=== PATIENT | male | born 1970 | race Caucasian/White ===

== ENCOUNTER → 2016-12-18 | Outpatient (CLI) | payer OTHER ==
--- NOTE | 2016-12-18 10:56 | MR ---
EXAMINATION TYPE: MR knee LT wo con DATE OF EXAM: 12/18/2016 9:16 AM COMPARISON: None HISTORY: Lt Knee pain TECHNIQUE: Multiplanar, multisequence imaging of the left knee is performed without IV contrast. FINDINGS: MEDIAL MENISCUS: Anterior and posterior horns are intact without tear. LATERAL MENISCUS: Anterior and posterior horns are intact without tear. CRUCIATE LIGAMENTS: The anterior cruciate ligament shows fluid signal along its course, some fibers a re thought to be intact. Posterior cruciate ligament is intact. COLLATERAL LIGAMENTS: The medial collateral ligament and lateral collateral ligament complex are inta ct and unremarkable. EXTENSOR MECHANISM: Visualized quadriceps and patellar tendons are intact. EFFUSION: There is a small effusion in the suprapatellar location. POPLITEAL CYST: No sizable popliteal cyst TRICOMPARTMENT SPACES: Joint spaces are maintained CARTILAGE: Appears intact. BONE MARROW SIGNAL: There is increased signal on T2-weighted sequences involving the posterior aspect of the lateral femoral condyle compatible with bone contusion. OTHER: No additional significant abnormality is appreciated. IMPRESSION: Bone contusion, findings felt likely to represent strain, possible partial tear of the anterior cruci ate ligament
== END | disposition home or self-care (01) ==
LOC: RADMRIMAIN 08:22
PROVIDERS: ATTEND Nurse Practitioner Family
DX: S80.02XA Contusion of left knee, initial encounter (principal)

== ENCOUNTER 2016-12-28 13:05 | Emergency (ER) | payer OTHER ==
[2016-12-28] MEDS ORDERED: SODIUM CHLORIDE 0.9% 1,000 ML IV STA (13:23)
[2016-12-28] MEDS ORDERED: ONDANSETRON 4 MG/2 ML VIAL IVP STA ×2 (13:23→15:28)
[2016-12-28 13:45] LABS: Basophils % (A) 0 %; CH 33.1; CHCM 34.1; Eosinophils % (A) 0 %; HCT 46.8 % (39.0-53.0); HDW 2.11; HGB 15.5 gm/dL (13.0-17.5); Luc # (Auto) 0.04; Luc % (Auto) 0; Lymphocytes # (A) 0.7 k/uL (1.0-4.8); Lymphocytes % (A) 6 %; MCH 32.3 pg (25.0-35.0); MCHC 33.2 g/dL (31.0-37.0); MCV 97.5 fL (80.0-100.0); Mean Platelet Volume 8.6; Monocytes # (A) 0.3 k/uL (0-1.0); Monocytes % (A) 3 %; Neutrophils # (A) 9.5 k/uL (1.3-7.7); Neutrophils % (A) 90 %; RDW 13.2 % (11.5-15.5); WBC 10.5 k/uL (3.8-10.6)
--- NOTE | 2016-12-28 13:45 | ED ---
Nausea/Vomiting/Diarrhea HPI - General Chief complaint: Nausea/Vomiting/Diarrhea Stated complaint: NVD Time Seen by Provider: 12/28/16 13:21 Source: patient, RN notes reviewed Mode of arrival: wheelchair Limitations: no limitations - History of Present Illness Initial comments: 46-year-old male presents emergency Department chief complaint nausea, vomiting and diarrhea. Patient states that he's been having nausea vomiting diarrhea since yesterday. Patient states his abdominal cramping but no severe localized abdominal pain. Denies fever, chills. Denies any dysuria or hematuria. Patient denies any chest pain, shortness breath, headache, dizziness, flank pain. - Related Data Home Medications Medication Instructions Recorded Confirmed Naproxen [Naprosyn] 500 mg PO BID PRN 12/28/16 12/28/16 Previous Rx's Medication Instructions Recorded Ondansetron Odt [Zofran Odt] 4 mg PO Q8HR PRN #10 tab 12/28/16 Allergies Allergy/AdvReac Type Severity Reaction Status Date / Time cyclobenzaprine Allergy AGITATION Verified 12/28/16 14:07 [From Flexeril] Review of Systems ROS Statement: Those systems with pertinent positive or pertinent negative responses have been documented in the HPI. ROS Other: All systems not noted in ROS Statement are negative. Past Medical History Past Medical History: No Reported History Additional Past Medical History / Comment(s): hernia, alcoholism History of Any Multi-Drug Resistant Organisms: None Reported Past Surgical History: Hernia Repair Past Anesthesia/Blood Transfusion Reactions: No Reported Reaction Past Psychological History: No Psychological Hx Reported Smoking Status: Former smoker Past Alcohol Use History: Daily, Heavy Past Drug Use History: None Reported General Exam Limitations: no limitations General appearance: alert, in no apparent distress Head exam: Present: atraumatic, normocephalic, normal inspection Neck exam: Present: normal inspection, full ROM. Absent: tenderness, meningismus, lymphadenopathy Respiratory exam: Present: normal lung sounds bilaterally. Absent: respiratory distress, wheezes, rales, rhonchi, stridor Cardiovascular Exam: Present: regular rate, normal rhythm, normal heart sounds. Absent: systolic murmur, diastolic murmur, rubs, gallop, clicks GI/Abdominal exam: Present: soft, tenderness (Mild diffuse), normal bowel sounds. Absent: distended, guarding, rebound, rigid Back exam: Absent: CVA tenderness (R), CVA tenderness (L) Neurological exam: Present: alert, oriented X3, CN II-XII intact Course Vital Signs 12/28/16 13:07 Temperature 97.8 F Pulse Rate 108 H Respiratory 20 Rate Blood Pressure 128/74 O2 Sat by Pulse 99 Oximetry - Reevaluation(s) Reevaluation #1: 12/28/16 15:28 Patient was reevaluated his time states that he does feel much improved at this time. Patient will be discharged. Medical Decision Making - Medical Decision Making 46-year-old male present emergency department for nausea vomiting diarrhea. Patient states symptoms started last night. Patient states she does feel improved at this time. Patient was discharged with Zofran. Patient's lab work within normal limits. - Lab Data Result diagrams: 12/28/16 13:28 12/28/16 13:28 Lab Results 12/28/16 12/28/16 12/28/16 Range/Units 13:28 13:28 14:34 WBC 10.5 (3.8-10.6) k/uL RBC 4.80 (4.30-5.90) m/uL Hgb 15.5 (13.0-17.5) gm/dL Hct 46.8 (39.0-53.0) % MCV 97.5 (80.0-100.0) fL MCH 32.3 (25.0-35.0) pg MCHC 33.2 (31.0-37.0) g/dL RDW 13.2 (11.5-15.5) % Plt Count 202 (150-450) k/uL Neutrophils % 90 % Lymphocytes % 6 % Monocytes % 3 % Eosinophils % 0 % Basophils % 0 % Neutrophils # 9.5 H (1.3-7.7) k/uL Lymphocytes # 0.7 L (1.0-4.8) k/uL Monocytes # 0.3 (0-1.0) k/uL Eosinophils # 0.0 (0-0.7) k/uL Basophils # 0.0 (0-0.2) k/uL Sodium 143 (137-145) mmol/L Potassium 4.3 (3.5-5.1) mmol/L Chloride 103 (98-107) mmol/L Carbon Dioxide 23 (22-30) mmol/L Anion Gap 17 mmol/L BUN 14 (9-20) mg/dL Creatinine 1.12 (0.66-1.25) mg/dL Est GFR (MDRD) Af Amer >60 (>60 ml/min/1.73 sqM) Est GFR (MDRD) Non-Af >60 (>60 ml/min/1.73 sqM) Glucose 121 H (74-99) mg/dL Calcium 10.3 H (8.4-10.2) mg/dL Total Bilirubin 0.9 (0.2-1.3) mg/dL AST 27 (17-59) U/L ALT 29 (21-72) U/L Alkaline Phosphatase 69 (38-126) U/L Total Protein 8.4 H (6.3-8.2) g/dL Albumin 5.2 H (3.5-5.0) g/dL Amylase 66 (30-110) U/L Lipase 160 (23-300) U/L Urine Color Yellow Urine Appearance Clear (Clear) Urine pH 7.0 (5.0-8.0) Ur Specific [place] 1.024 (1.001-1.035) Urine Protein 1+ H (Negative) Urine Glucose (UA) Negative (Negative) Urine Ketones 3+ H (Negative) Urine Blood Negative (Negative) Urine Nitrite Negative (Negative) Urine Bilirubin Negative (Negative) Urine Urobilinogen <2.0 (<2.0) mg/dL Ur Leukocyte Esterase Negative (Negative) Urine RBC 4 (0-5) /hpf Urine WBC 2 (0-5) /hpf Urine Mucus Few H (None) /hpf Disposition Clinical Impression: Gastroenteritis Disposition: HOME SELF-CARE Condition: Stable Instructions: Gastroenteritis (ED) Additional Instructions: Please return to the Emergency Department if symptoms worsen or any other concerns. Prescriptions: Ondansetron Odt [Zofran Odt] 4 mg PO Q8HR PRN #10 tab PRN Reason: Nausea Time of Disposition: 15:30
[2016-12-28 14:02] LABS: ALT 29 U/L (21-72); AST 27 U/L (17-59); Alkaline Phosphatase 69 U/L (38-126); Amylase 66 U/L (30-110); Anion Gap 17 mmol/L; Blood Urea Nitrogen 14 mg/dL (9-20); Calcium 10.3 mg/dL (8.4-10.2); Carbon Dioxide 23 mmol/L (22-30); Chloride 103 mmol/L (98-107); Glucose 121 mg/dL (74-99); Non-African American GFR(MDRD) >60 (>60 ml/min/1.73 sqM); Potassium 4.3 mmol/L (3.5-5.1); Sodium 143 mmol/L (137-145); Total Bilirubin 0.9 mg/dL (0.2-1.3); Total Protein 8.4 g/dL (6.3-8.2)
[2016-12-28 14:54] LABS: Appearance,Urine Clear (Clear); Bilirubin,Urine Negative (Negative); Glucose,Urine (UA) Negative (Negative); Ketones,Urine 3+ (Negative); Leukocyte Esterase,Urine Negative (Negative); Mucus,Urine Few /hpf; Nitrite,Urine Negative (Negative); Particle Count 3762; Protein,Urine 1+ (Negative); RBC,Urine 4 /hpf (0-5); Specific Gravity,Urine 1.024 (1.001-1.035); UA Billing (MACRO vs. MICRO) MICRO; Urobilinogen,Urine <2.0 mg/dL (<2.0); WBC,Urine 2 /hpf (0-5)
[2016-12-28] MEDS ORDERED: FAMOTIDINE 20 MG/2 ML VIAL IV STA (15:28)
[2016-12-28 15:49] VITALS: BP 140/99; PULSE 77; RESP 18; TEMP 99.1
== END 2016-12-28 16:00 | disposition home or self-care (01) ==
LOC: EC 13:05
DX: K52.9 Noninfective gastroenteritis and colitis, unspecified (principal); R11.2 Nausea with vomiting, unspecified; Z87.891 Personal history of nicotine dependence; Z88.8 Allergy status to other drugs, medicaments and biological substances; Z98.890 Other specified postprocedural states
CPT/HCPCS: 36415; 80053; 82150; 83690; 85025; 81001; 99284; 96374; 96375; 96376; 96361 ×2; J2405

== ENCOUNTER 2017-01-02 19:49 | Emergency (ER) | payer OTHER ==
[2017-01-02 20:11] VITALS: TEMP 99
[2017-01-02 20:27] LABS: Basophils % (A) 1 %; CH 33.7; Eosinophils # (A) 0.1 k/uL (0-0.7); Eosinophils % (A) 1 %; HCT 44.4 % (39.0-53.0); HDW 2.26; HGB 15.4 gm/dL (13.0-17.5); Luc # (Auto) 0.18; Luc % (Auto) 2; Lymphocytes # (A) 1.8 k/uL (1.0-4.8); Lymphocytes % (A) 24 %; MCH 32.8 pg (25.0-35.0); MCHC 34.8 g/dL (31.0-37.0); MCV 94.2 fL (80.0-100.0); Mean Platelet Volume 9.3; Monocytes # (A) 0.6 k/uL (0-1.0); Monocytes % (A) 8 %; Neutrophils # (A) 4.8 k/uL (1.3-7.7); Neutrophils % (A) 64 %; RBC 4.71 m/uL (4.30-5.90); RDW 12.9 % (11.5-15.5); WBC 7.5 k/uL (3.8-10.6); WBC (Perox) 7.55
[2017-01-02 20:33] LABS: Appearance,Urine Cloudy (Clear); Bacteria,Urine Rare /hpf; Bilirubin,Urine Negative (Negative); Glucose,Urine (UA) Negative (Negative); Ketones,Urine 1+ (Negative); Leukocyte Esterase,Urine Negative (Negative); Mucus,Urine Rare /hpf; Nitrite,Urine Negative (Negative); PH, Urine 6.5 (5.0-8.0); Particle Count 8948; Protein,Urine Trace (Negative); RBC,Urine 2 /hpf (0-5); UA Billing (MACRO vs. MICRO) MICRO; WBC,Urine 3 /hpf (0-5)
[2017-01-02 20:37] LABS: INR 1.3 (<1.1); Partial Thromboplastin Time 23.6 sec (22.0-30.0); Prothrombin Time 13.1 sec (9.0-12.0)
[2017-01-02 20:39] LABS: ALT 71 U/L (21-72); AST 40 U/L (17-59); Alkaline Phosphatase 48 U/L (38-126); Anion Gap 12 mmol/L; Blood Urea Nitrogen 18 mg/dL (9-20); Calcium 9.3 mg/dL (8.4-10.2); Carbon Dioxide 23 mmol/L (22-30); Chloride 102 mmol/L (98-107); Glucose 81 mg/dL (74-99); Non-African American GFR(MDRD) >60 (>60 ml/min/1.73 sqM); Potassium 3.6 mmol/L (3.5-5.1); Sodium 137 mmol/L (137-145); Total Bilirubin 1.5 mg/dL (0.2-1.3); Total Protein 7.1 g/dL (6.3-8.2)
--- NOTE | 2017-01-02 20:54 | CT ---
EXAMINATION TYPE: CT abdomen pelvis w con DATE OF EXAM: 01/02/2017 8:39 PM COMPARISON: 12/29/2016 HISTORY: ABD PAIN. HX OF APPENDECTOMY ON 12-30-16. CT DLP: 325.6 mGycm Automated exposure control for dose reduction was used. TECHNIQUE: Helical acquisition of images was performed from the lung bases through the pelvis. CONTRAST: Performed without Oral Contrast and with IV Contrast, patient injected with 100 mL of Omnipaque 300. FINDINGS: Lung bases are clear. There is no pleural effusion. Liver spleen pancreas gallbladder appear normal. Bile ducts are not dilated. There is no adrenal mass. Kidneys show satisfactory contrast opacificatio n. There is no hydronephrosis. There are skin adi over the right lower quadrant. I see no intesti nal wall thickening. There are no dilated loops. Bladder distends smoothly. There is no free fluid. T here is no sign of a pelvic mass. I see no bony destructive process. IMPRESSION: RECENT SURGERY. THERE HAS BEEN APPENDECTOMY SINCE THE LAST EXAM. I SEE NO COMPLICATING PROCESS. NO AB SCESS.
--- NOTE | 2017-01-02 21:24 | ED ---
Abdominal Pain HPI - General Chief Complaint: Abdominal Pain Stated Complaint: ABD PAIN Time Seen by Provider: 01/02/17 20:12 Source: patient, EMS Mode of arrival: EMS Limitations: no limitations - History of Present Illness Initial Comments: Patient complains of nausea and vomiting. He had a recent appendectomy. He doesn't have any belly pain. He has no back pain. He has no chest pain. He has no lightheadedness or dizziness. He is unable to tolerate oral intake. He has no blood in the stool. He has no black or tarry stool. He has taken no medication for his symptoms. He denies any injuries. - Related Data Home Medications Medication Instructions Recorded Confirmed Naproxen [Naprosyn] 500 mg PO BID PRN 12/28/16 01/02/17 HYDROcodone/APAP 5-325MG [[place] 5] 2 tab PO Q4H PRN 01/02/17 01/02/17 Previous Rx's Medication Instructions Recorded Ondansetron Odt [Zofran Odt] 4 mg PO Q8HR PRN #10 tab 12/28/16 Allergies Allergy/AdvReac Type Severity Reaction Status Date / Time cyclobenzaprine Allergy AGITATION Verified 01/02/17 20:43 [From Flexeril] Review of Systems ROS Statement: Those systems with pertinent positive or pertinent negative responses have been documented in the HPI. ROS Other: All systems not noted in ROS Statement are negative. Past Medical History Past Medical History: No Reported History Additional Past Medical History / Comment(s): hernia, alcoholism History of Any Multi-Drug Resistant Organisms: None Reported Past Surgical History: Appendectomy, Hernia Repair Past Anesthesia/Blood Transfusion Reactions: No Reported Reaction Past Psychological History: No Psychological Hx Reported Smoking Status: Former smoker Past Alcohol Use History: Daily, Heavy Past Drug Use History: None Reported General Exam Limitations: no limitations General appearance: alert, in no apparent distress Head exam: Present: atraumatic, normocephalic, normal inspection Eye exam: Present: normal appearance, PERRL, EOMI. Absent: scleral icterus, conjunctival injection, periorbital swelling ENT exam: Present: normal exam, mucous membranes moist Neck exam: Present: normal inspection. Absent: tenderness, meningismus, lymphadenopathy Respiratory exam: Present: normal lung sounds bilaterally. Absent: respiratory distress, wheezes, rales, rhonchi, stridor Cardiovascular Exam: Present: regular rate, normal rhythm, normal heart sounds. Absent: systolic murmur, diastolic murmur, rubs, gallop, clicks GI/Abdominal exam: Present: soft, normal bowel sounds. Absent: distended, tenderness, guarding, rebound, rigid Extremities exam: Present: normal inspection, full ROM, normal capillary refill. Absent: tenderness, pedal edema, joint swelling, calf tenderness Back exam: Present: normal inspection Neurological exam: Present: alert, oriented X3, CN II-XII intact Psychiatric exam: Present: normal affect, normal mood Skin exam: Present: warm, dry, intact, normal color. Absent: rash Course Vital Signs 01/02/17 20:08 Temperature 99.0 F Pulse Rate 77 Respiratory 18 Rate Blood Pressure 110/71 O2 Sat by Pulse 100 Oximetry Medical Decision Making - Medical Decision Making Patient complains of nausea and vomiting after an appendectomy recently. His examination is benign. He is not actively vomiting. His belly is soft. The incision is clean, dry, intact. I obtained a CAT scan as I'm concern for a bowel obstruction or ileus or abscess. This was obtained, interpreted by radiology as completely negative. On reevaluation the patient is feeling better. I cannot find evidence of an acute emergency condition. At this time he is tolerating oral intake and is stable for discharge. I instructed him to follow-up with his surgeon. - Lab Data Result diagrams: 01/02/17 20:08 01/02/17 20:08 Lab Results 01/02/17 01/02/17 01/02/17 Range/Units 20:08 20:08 20:08 WBC 7.5 (3.8-10.6) k/uL RBC 4.71 (4.30-5.90) m/uL Hgb 15.4 (13.0-17.5) gm/dL Hct 44.4 (39.0-53.0) % MCV 94.2 (80.0-100.0) fL MCH 32.8 (25.0-35.0) pg MCHC 34.8 (31.0-37.0) g/dL RDW 12.9 (11.5-15.5) % Plt Count 151 (150-450) k/uL Neutrophils % 64 % Lymphocytes % 24 % Monocytes % 8 % Eosinophils % 1 % Basophils % 1 % Neutrophils # 4.8 (1.3-7.7) k/uL Lymphocytes # 1.8 (1.0-4.8) k/uL Monocytes # 0.6 (0-1.0) k/uL Eosinophils # 0.1 (0-0.7) k/uL Basophils # 0.0 (0-0.2) k/uL PT 13.1 H (9.0-12.0) sec INR 1.3 (<1.1) APTT 23.6 (22.0-30.0) sec Sodium 137 (137-145) mmol/L Potassium 3.6 (3.5-5.1) mmol/L Chloride 102 (98-107) mmol/L Carbon Dioxide 23 (22-30) mmol/L Anion Gap 12 mmol/L BUN 18 (9-20) mg/dL Creatinine 1.00 (0.66-1.25) mg/dL Est GFR (MDRD) Af Amer >60 (>60 ml/min/1.73 sqM) Est GFR (MDRD) Non-Af >60 (>60 ml/min/1.73 sqM) Glucose 81 (74-99) mg/dL Calcium 9.3 (8.4-10.2) mg/dL Total Bilirubin 1.5 H (0.2-1.3) mg/dL AST 40 (17-59) U/L ALT 71 (21-72) U/L Alkaline Phosphatase 48 (38-126) U/L Total Protein 7.1 (6.3-8.2) g/dL Albumin 4.1 (3.5-5.0) g/dL Lipase 70 (23-300) U/L Urine Color Urine Appearance (Clear) Urine pH (5.0-8.0) Ur Specific [place] (1.001-1.035) Urine Protein (Negative) Urine Glucose (UA) (Negative) Urine Ketones (Negative) Urine Blood (Negative) Urine Nitrite (Negative) Urine Bilirubin (Negative) Urine Urobilinogen (<2.0) mg/dL Ur Leukocyte Esterase (Negative) Urine RBC (0-5) /hpf Urine WBC (0-5) /hpf Urine Bacteria (None) /hpf Urine Mucus (None) /hpf Urine Yeast (Budding) (None) /hpf Blood Type Blood Type Recheck Antibody Screen Spec Expiration Date 01/02/17 01/02/17 Range/Units 20:08 20:08 WBC (3.8-10.6) k/uL RBC (4.30-5.90) m/uL Hgb (13.0-17.5) gm/dL Hct (39.0-53.0) % MCV (80.0-100.0) fL MCH (25.0-35.0) pg MCHC (31.0-37.0) g/dL RDW (11.5-15.5) % Plt Count (150-450) k/uL Neutrophils % % Lymphocytes % % Monocytes % % Eosinophils % % Basophils % % Neutrophils # (1.3-7.7) k/uL Lymphocytes # (1.0-4.8) k/uL Monocytes # (0-1.0) k/uL Eosinophils # (0-0.7) k/uL Basophils # (0-0.2) k/uL PT (9.0-12.0) sec INR (<1.1) APTT (22.0-30.0) sec Sodium (137-145) mmol/L Potassium (3.5-5.1) mmol/L Chloride (98-107) mmol/L Carbon Dioxide (22-30) mmol/L Anion Gap mmol/L BUN (9-20) mg/dL Creatinine (0.66-1.25) mg/dL Est GFR (MDRD) Af Amer (>60 ml/min/1.73 sqM) Est GFR (MDRD) Non-Af (>60 ml/min/1.73 sqM) Glucose (74-99) mg/dL Calcium (8.4-10.2) mg/dL Total Bilirubin (0.2-1.3) mg/dL AST (17-59) U/L ALT (21-72) U/L Alkaline Phosphatase (38-126) U/L Total Protein (6.3-8.2) g/dL Albumin (3.5-5.0) g/dL Lipase (23-300) U/L Urine Color Yellow Urine Appearance Cloudy (Clear) Urine pH 6.5 (5.0-8.0) Ur Specific [place] 1.020 (1.001-1.035) Urine Protein Trace H (Negative) Urine Glucose (UA) Negative (Negative) Urine Ketones 1+ H (Negative) Urine Blood Negative (Negative) Urine Nitrite Negative (Negative) Urine Bilirubin Negative (Negative) Urine Urobilinogen 4.0 (<2.0) mg/dL Ur Leukocyte Esterase Negative (Negative) Urine RBC 2 (0-5) /hpf Urine WBC 3 (0-5) /hpf Urine Bacteria Rare H (None) /hpf Urine Mucus Rare H (None) /hpf Urine Yeast (Budding) Occasional H (None) /hpf Blood Type A Positive Blood Type Recheck CABO Indicated Antibody Screen NEGATIVE Spec Expiration Date 01/05/20172307 Disposition Clinical Impression: Nausea and vomiting Disposition: HOME SELF-CARE Condition: Good Instructions: Acute Nausea and Vomiting (ED) Referrals: Raul Bowen MD [Primary Care Provider] - 1-2 days Kathi Dumont MD [STAFF PHYSICIAN] - 1-2 days Time of Disposition: 21:23
[2017-01-02 21:47] VITALS: BP 151/89; PULSE 60; RESP 16
== END 2017-01-02 21:55 | disposition home or self-care (01) ==
LOC: EC 19:49
DX: R11.2 Nausea with vomiting, unspecified (principal); Z87.891 Personal history of nicotine dependence; Z98.890 Other specified postprocedural states; Z88.8 Allergy status to other drugs, medicaments and biological substances
CPT/HCPCS: 99285; 36415; 86900; 86901; 80053; 83690; 85025; 85610; 85730; 86850; 81001; 74177; Q9967

== ENCOUNTER 2017-03-08 01:55 | Emergency (ER) | payer OTHER ==
[2017-03-08 02:01] VITALS: RESP 18
[2017-03-08] MEDS ORDERED: ONDANSETRON 4 MG/2 ML VIAL IVP STA (02:05)
[2017-03-08] MEDS ORDERED: SODIUM CHLORIDE 0.9% 2,000 ML IV STA (02:05)
[2017-03-08] MEDS ORDERED: HYDROmorphone 1 MG/ML 1 ML SYRINGE IVP STA (02:05)
[2017-03-08] MEDS ORDERED: LORazepam 2 MG/ML SYRINGE IV STA (02:05)
[2017-03-08] MEDS ORDERED: RX INFO: IV CONTRAST WAS GIVEN 1 EACH MISC MISCELLANE PRN (02:05)
--- NOTE | 2017-03-08 02:08 | ED ---
Nausea/Vomiting/Diarrhea HPI - General Chief complaint: Nausea/Vomiting/Diarrhea Stated complaint: abd pain Time Seen by Provider: 03/08/17 01:57 Source: patient, RN notes reviewed Mode of arrival: EMS Limitations: no limitations - History of Present Illness Initial comments: 46-year-old male presents to the emergency Department chief complaint of nausea vomiting and abdominal cramping. Patient states he drinks about 2 beers a day. Patient states after drinking the beer a night he became to vomit. Patient states his abdominal pain. Patient denies any radiation the pain. Patient states he does have history of nausea vomiting, pain much like this. Patient denies any chest pain or shortness of breath with this. Patient states she was concerned she the continued vomiting that would not stop home so he thought that he should be seen.Patient denies any recent fever, chills, shortness of breath, chest pain, back pain, numbness or tingling, dysuria or hematuria, constipation or diarrhea, headaches or visual changes, or any other current symptoms. - Related Data Allergies Allergy/AdvReac Type Severity Reaction Status Date / Time cyclobenzaprine Allergy AGITATION Verified 03/08/17 02:01 [From Flexeril] Review of Systems ROS Statement: Those systems with pertinent positive or pertinent negative responses have been documented in the HPI. ROS Other: All systems not noted in ROS Statement are negative. Past Medical History Past Medical History: No Reported History Additional Past Medical History / Comment(s): hernia, alcoholism, History of Any Multi-Drug Resistant Organisms: None Reported Past Surgical History: Appendectomy, Hernia Repair Past Anesthesia/Blood Transfusion Reactions: No Reported Reaction Past Psychological History: No Psychological Hx Reported Smoking Status: Former smoker Past Alcohol Use History: Daily, Heavy Past Drug Use History: None Reported General Exam - General Exam Comments Initial Comments: General: The patient is awake and alert, in no distress, and does not appear acutely ill. Eye: Pupils are equal, round and reactive to light. Ears, nose, mouth and throat: There are moist mucous membranes. Neck: The neck is supple, there is no tenderness. Cardiovascular: There is a regular rate and rhythm. No murmur, rub or gallop is appreciated. Respiratory: Lungs are clear to auscultation, respirations are non-labored, breath sounds are equal. No wheezes, stridor, rales, or rhonchi. Gastrointestinal: Soft, non-distended, epigastric abdomen without masses or organomegaly noted. There is no rebound or guarding present. No CVA tenderness. Bowel sounds are unremarkable. Back: There is no tenderness to palpation in the midline. There is no obvious deformity. No rashes noted. Musculoskeletal: Normal ROM, no tenderness, There is no pedal edema. There is no calf tenderness or swelling. Sensation intact. Pulses equal bilaterally 2+. Neurological: CN II-XII intact, There are no obvious motor or sensory deficits. Coordination appears grossly intact. Speech is normal. Skin: Skin is warm and dry and no rashes or lesions are noted. Psychiatric: Cooperative, appropriate mood & affect, normal judgment. Limitations: no limitations Course Vital Signs 03/08/17 01:56 Temperature 98.4 F Pulse Rate 88 Respiratory 18 Rate Blood Pressure 147/88 O2 Sat by Pulse 94 L Oximetry Medical Decision Making - Medical Decision Making 46-year-old male presents for abdominal pain and epigastric pain and vomiting. Patient has a history of nausea vomiting in the past much like vomiting syndrome. He states is much like. After nausea medication patient is feeling much better. We will discharge the patient home. We discussed follow-up return parameters all patient's questions. He states that he understood the plan. He'll be discharged at this time. - Lab Data Result diagrams: 03/08/17 02:04 03/08/17 02:04 Lab Results 03/08/17 03/08/17 Range/Units 02:04 02:04 WBC 9.4 (3.8-10.6) k/uL RBC 4.63 (4.30-5.90) m/uL Hgb 15.2 (13.0-17.5) gm/dL Hct 45.3 (39.0-53.0) % MCV 97.8 (80.0-100.0) fL MCH 32.9 (25.0-35.0) pg MCHC 33.6 (31.0-37.0) g/dL RDW 13.5 (11.5-15.5) % Plt Count 168 (150-450) k/uL Neutrophils % 85 % Lymphocytes % 9 % Monocytes % 5 % Eosinophils % 1 % Basophils % 0 % Neutrophils # 7.9 H (1.3-7.7) k/uL Lymphocytes # 0.9 L (1.0-4.8) k/uL Monocytes # 0.4 (0-1.0) k/uL Eosinophils # 0.1 (0-0.7) k/uL Basophils # 0.0 (0-0.2) k/uL Sodium 138 (137-145) mmol/L Potassium 3.6 (3.5-5.1) mmol/L Chloride 102 (98-107) mmol/L Carbon Dioxide 24 (22-30) mmol/L Anion Gap 12 mmol/L BUN 8 L (9-20) mg/dL Creatinine 1.00 (0.66-1.25) mg/dL Est GFR (MDRD) Af Amer >60 (>60 ml/min/1.73 sqM) Est GFR (MDRD) Non-Af >60 (>60 ml/min/1.73 sqM) Glucose 124 H (74-99) mg/dL Calcium 10.0 (8.4-10.2) mg/dL Total Bilirubin 0.9 (0.2-1.3) mg/dL AST 36 (17-59) U/L ALT 33 (21-72) U/L Alkaline Phosphatase 64 (38-126) U/L Total Protein 7.6 (6.3-8.2) g/dL Albumin 4.9 (3.5-5.0) g/dL Amylase 47 (30-110) U/L Lipase 48 (23-300) U/L - Radiology Data Radiology results: report reviewed, image reviewed Disposition Clinical Impression: Abdominal pain, Nausea & vomiting, Pulmonary nodule Disposition: HOME SELF-CARE Condition: Stable Instructions: Abdominal Pain (ED) Additional Instructions: Please use medication as discussed. Please follow up with family doctor if symptoms have not improved over the next two days. Please return to the emergency room if your symptoms increase or worsen or for any other concerns. Referrals: Raul Bowen MD [Primary Care Provider] - 1-2 days Time of Disposition: 03:18
[2017-03-08 02:15] LABS: Basophils % (A) 0 %; CH 33.5; CHCM 34.4; Eosinophils # (A) 0.1 k/uL (0-0.7); Eosinophils % (A) 1 %; HCT 45.3 % (39.0-53.0); HGB 15.2 gm/dL (13.0-17.5); Luc # (Auto) 0.07; Luc % (Auto) 1; Lymphocytes # (A) 0.9 k/uL (1.0-4.8); Lymphocytes % (A) 9 %; MCH 32.9 pg (25.0-35.0); MCHC 33.6 g/dL (31.0-37.0); MCV 97.8 fL (80.0-100.0); Mean Platelet Volume 9.3; Monocytes # (A) 0.4 k/uL (0-1.0); Monocytes % (A) 5 %; Neutrophils # (A) 7.9 k/uL (1.3-7.7); Neutrophils % (A) 85 %; RBC 4.63 m/uL (4.30-5.90); RDW 13.5 % (11.5-15.5); WBC 9.4 k/uL (3.8-10.6); WBC (Perox) 9.54
[2017-03-08 02:32] LABS: ALT 33 U/L (21-72); AST 36 U/L (17-59); Alkaline Phosphatase 64 U/L (38-126); Amylase 47 U/L (30-110); Anion Gap 12 mmol/L; Blood Urea Nitrogen 8 mg/dL (9-20); Carbon Dioxide 24 mmol/L (22-30); Chloride 102 mmol/L (98-107); Glucose 124 mg/dL (74-99); Non-African American GFR(MDRD) >60 (>60 ml/min/1.73 sqM); Potassium 3.6 mmol/L (3.5-5.1); Sodium 138 mmol/L (137-145); Total Bilirubin 0.9 mg/dL (0.2-1.3); Total Protein 7.6 g/dL (6.3-8.2)
[2017-03-08] MEDS ORDERED: METOCLOPRAMIDE 5 MG/ML 2 ML VIAL IVP STA (03:03)
--- NOTE | 2017-03-08 03:14 | CT ---
PROCEDURE: CT ABDOMEN + PELVIS With Contrast HISTORY: 46-year-old male with history of appendectomy, now presenting with abdominal pain. COMPARISON: CT abdomen and pelvis 01/02/2017 TECHNIQUE: After administration of 100 mL of Omnipaque 300 contrast material intravenously, CT imaging was obtained through the abdomen and pelvis. Coronal and sagittal reformations were performed. DOSE: Total Exam volume computed tomography dose index (CTDIvol) = 10.4 mGy and Dose Length Product (DLP) = 351.8 mGY-cm. This CT exam was performed using one or more of the following dose reduction techniques: automated exposure control, adjustment of the mA and/or kV according to patient size, and/or use of iterative reconstruction technique. FINDINGS: Lung bases: 4 millimeter left lower lobe pulmonary nodule, series 3 image 9. Abdomen: The liver, spleen, pancreas, gallbladder, and bilateral adrenal glands are unremarkable. Evaluation of the kidneys is unremarkable. Evaluation of the GI tract is limited by lack of distention and retained stool. No bowel obstruction. Regions of small and large bowel wall thickening may be due to incomplete distention or enterocolitis. No free fluid, free air or significant abdominal adenopathy. The abdominal vasculature is unremarkable. Pelvis: The urinary bladder is unremarkable for degree of distension. The prostate and seminal vesicles are within normal limits. No free fluid, free air or significant pelvic adenopathy. The pelvic vasculature is unremarkable. Bones: Mild degenerative changes in the spine. IMPRESSION: 1. Regions of small and large bowel wall thickening may be due to incomplete distention or enterocolitis. 2. 4 millimeter left lower lobe pulmonary nodule. Followup per Fleischner Society guidelines. 3. Other findings as detailed above.
[2017-03-08] MEDS ORDERED: ONDANSETRON 4 MG ODT STARTER PACK 2 TAB BTL PO STA (03:19)
[2017-03-08 03:51] VITALS: BP 146/92; PULSE 62; TEMP 100.2
== END 2017-03-08 03:52 | disposition home or self-care (01) ==
LOC: EC 01:55
DX: R11.2 Nausea with vomiting, unspecified (principal); R10.13 Epigastric pain; R91.1 Solitary pulmonary nodule; Z87.891 Personal history of nicotine dependence; Z88.8 Allergy status to other drugs, medicaments and biological substances; Z90.49 Acquired absence of other specified parts of digestive tract
CPT/HCPCS: 36415; 80053; 82150; 83690; 85025; 74177; 99285; 96374; 96375 ×3; 96361 ×2; J2060; J2765; J2405; J1170; Q9967; S0119

== ENCOUNTER → 2017-05-06 | Outpatient (CLI) | payer OTHER ==
--- NOTE | 2017-05-06 13:09 | CT ---
EXAMINATION TYPE: CT chest w con DATE OF EXAM: 05/06/2017 COMPARISON: Chest x-ray December 29, 2016 most recent x-ray at this institution. CT abdomen and pelvis J 2016 HISTORY: Patient has no complaints at time of study. Follow up for abnormal CXR. CT DLP: 168.3 mGycm. Automated Exposure Control for Dose Reduction was Utilized. TECHNIQUE: CT scan of the thorax is performed following with IV Contrast, patient injected with 100 mL of Omnipaque 300. FINDINGS: LUNGS: Moderate biapical scarring is present. There is stable 5 mm nodule left lung base unchanged fr om [address] There is 5 mm groundglass subpleural nodule anterolateral right mid lung on axi al image 37 noted. No additional concerning greater than 5 mm nodules or masses are present bilateral ly. There is no pleural effusion or pneumothorax seen bilaterally. The tracheobronchial tree is de león nt. MEDIASTINUM: There are no greater than 1 cm hilar or mediastinal lymph nodes. No cardiomegaly or pe ricardial effusion is seen. OTHER: Dextroconvex scoliosis centered in the mid thoracic spine is redemonstrated. Some mild multile jessica anterior spurring is noted. IMPRESSION: A 5 mm nodule left lung base is unchanged from 2013 and thus presumed benign. There is 5 mm groundglass subpleural nodule right midlung. No greater than 6 mm suspicious nodules are identifie d.
== END | disposition home or self-care (01) ==
LOC: RADCTMAIN 11:56
PROVIDERS: ATTEND Pediatrics
DX: R91.8 Other nonspecific abnormal finding of lung field (principal)
CPT/HCPCS: 71260; Q9967

== ENCOUNTER 2018-03-23 07:09 | Emergency (ER) | payer OTHER ==
[2018-03-23 07:13] VITALS: TEMP 98.7
[2018-03-23] MEDS ORDERED: SODIUM CHLORIDE 0.9% 1,000 ML IV STA (07:39)
[2018-03-23] MEDS ORDERED: MORPHINE SULFATE 2 MG/ML SYRINGE IVP STA (07:39)
[2018-03-23] MEDS ORDERED: ONDANSETRON ODT 8 MG TAB.RAPDIS PO STA (07:39)
--- NOTE | 2018-03-23 07:42 | ED ---
General Adult HPI - General Chief complaint: Abdominal Pain Stated complaint: Abd Pain Time Seen by Provider: 03/23/18 07:16 Source: patient, RN notes reviewed, old records reviewed Mode of arrival: ambulatory Limitations: no limitations - History of Present Illness Initial comments: 47 yo male presenting with chief complaint of nausea vomiting and crampy abdominal pain. Patient's symptoms began approximately 18 hours prior to arrival. He has had greater than 10 episodes of vomiting. Vomiting is nonbloody nonbilious. He did state he had some diarrhea which began at the onset of his symptoms. Patient states his pain is crampy, throughout his entire abdomen. No fever but he has had some chills. Last bowel movement was diarrhea at the beginning of his symptoms. He's had hernia repair and appendectomy in the past. He has no chronic medical problems. Not on any medications. - Related Data Previous Rx's Medication Instructions Recorded Ondansetron Odt [Zofran Odt] 4 mg PO Q8HR PRN #10 tab 03/23/18 Allergies Allergy/AdvReac Type Severity Reaction Status Date / Time cyclobenzaprine Allergy AGITATION Verified 03/23/18 07:56 [From Flexeril] Review of Systems ROS Statement: Those systems with pertinent positive or pertinent negative responses have been documented in the HPI. ROS Other: All systems not noted in ROS Statement are negative. Past Medical History Past Medical History: No Reported History Additional Past Medical History / Comment(s): hernia, alcoholism, History of Any Multi-Drug Resistant Organisms: None Reported Past Surgical History: Appendectomy, Hernia Repair Past Anesthesia/Blood Transfusion Reactions: No Reported Reaction Past Psychological History: No Psychological Hx Reported Smoking Status: Former smoker Past Alcohol Use History: Daily, Heavy Past Drug Use History: None Reported General Exam Limitations: no limitations General appearance: alert, in no apparent distress Head exam: Present: atraumatic, normocephalic Eye exam: Present: normal appearance, PERRL ENT exam: Present: mucous membranes dry Neck exam: Present: normal inspection. Absent: tenderness, meningismus Respiratory exam: Present: normal lung sounds bilaterally. Absent: respiratory distress, wheezes Cardiovascular Exam: Present: regular rate, normal rhythm GI/Abdominal exam: Present: soft, tenderness (Mild generalized tenderness to palpation), normal bowel sounds. Absent: distended, guarding, rebound Extremities exam: Present: normal inspection, normal capillary refill. Absent: pedal edema Neurological exam: Present: alert, oriented X3, CN II-XII intact. Absent: motor sensory deficit Psychiatric exam: Present: normal affect, normal mood Skin exam: Present: warm, dry, intact. Absent: cyanosis, diaphoretic Course Vital Signs 03/23/18 03/23/18 03/23/18 07:11 08:02 08:55 Temperature 98.7 F Pulse Rate 62 56 L 64 Respiratory 20 20 18 Rate Blood Pressure 167/99 144/87 105/71 O2 Sat by Pulse 99 100 100 Oximetry Medical Decision Making - Medical Decision Making 47 yo male presenting with nausea vomiting diarrhea and crampy abdominal pain. Workup cleaning abdominal x-ray showing no obstruction or free air no ileus. Laboratory studies reveal mild leukocytosis may be reactive secondary to vomiting, hemoglobin 16.4. Urinalysis is negative for ketones, there is 9 red blood cells. Electrolytes are normal with the exception of some mild hypercalcemia 10.6. After IV hydration and Zofran patient is feeling better. Vital signs remained stable. On further questioning the patient does admit to being a daily drinker, he drinks quite heavily. He also has a court date tomorrow and is quite anxious about this. He will be discharged home with [facility]. He will return with worsening or changing symptoms. He will follow-up with the primary care physician and will attempt to abstain from alcohol. - Lab Data Result diagrams: 03/23/18 07:45 03/23/18 07:45 Lab Results 03/23/18 03/23/18 03/23/18 Range/Units 07:45 07:45 08:11 WBC 13.9 H (3.8-10.6) k/uL RBC 4.97 (4.30-5.90) m/uL Hgb 16.4 (13.0-17.5) gm/dL Hct 48.0 (39.0-53.0) % MCV 96.6 (80.0-100.0) fL MCH 33.0 (25.0-35.0) pg MCHC 34.2 (31.0-37.0) g/dL RDW 13.4 (11.5-15.5) % Plt Count 169 (150-450) k/uL Neutrophils % 91 % Lymphocytes % 5 % Monocytes % 3 % Eosinophils % 1 % Basophils % 0 % Neutrophils # 12.7 H (1.3-7.7) k/uL Lymphocytes # 0.6 L (1.0-4.8) k/uL Monocytes # 0.4 (0-1.0) k/uL Eosinophils # 0.2 (0-0.7) k/uL Basophils # 0.0 (0-0.2) k/uL Sodium 145 (137-145) mmol/L Potassium 4.4 (3.5-5.1) mmol/L Chloride 104 (98-107) mmol/L Carbon Dioxide 22 (22-30) mmol/L Anion Gap 19 mmol/L BUN 19 (9-20) mg/dL Creatinine 1.12 (0.66-1.25) mg/dL Est GFR (CKD-EPI)AfAm >90 (>60 ml/min/1.73 sqM) Est GFR (CKD-EPI)NonAf 79 (>60 ml/min/1.73 sqM) Glucose 161 H (74-99) mg/dL Calcium 10.6 H (8.4-10.2) mg/dL Total Bilirubin 0.7 (0.2-1.3) mg/dL AST 24 (17-59) U/L ALT 30 (21-72) U/L Alkaline Phosphatase 62 (38-126) U/L Total Protein 8.6 H (6.3-8.2) g/dL Albumin 5.5 H (3.5-5.0) g/dL Amylase 52 (30-110) U/L Lipase 25 (23-300) U/L Urine Color Yellow Urine Appearance Clear (Clear) Urine pH 6.0 (5.0-8.0) Ur Specific [place] 1.028 (1.001-1.035) Urine Protein 1+ H (Negative) Urine Glucose (UA) Negative (Negative) Urine Ketones 2+ H (Negative) Urine Blood Small H (Negative) Urine Nitrite Negative (Negative) Urine Bilirubin Negative (Negative) Urine Urobilinogen <2.0 (<2.0) mg/dL Ur Leukocyte Esterase Negative (Negative) Urine RBC 9 H (0-5) /hpf Urine WBC 1 (0-5) /hpf Ur Squamous Epith Cells <1 (0-4) /hpf Urine Mucus Few H (None) /hpf Disposition Clinical Impression: Nausea vomiting and diarrhea, Alcohol abuse Disposition: HOME SELF-CARE Condition: Fair Instructions: Acute Nausea and Vomiting (ED) Prescriptions: Ondansetron Odt [Zofran Odt] 4 mg PO Q8HR PRN #10 tab PRN Reason: Vomiting Is patient prescribed a controlled substance at d/c from ED?: No Referrals: Raul Bowen MD [Primary Care Provider] - 1-2 days Time of Disposition: 09:21
[2018-03-23 07:54] LABS: Basophils % (A) 0 %; Eosinophils # (A) 0.2 k/uL (0-0.7); Eosinophils % (A) 1 %; HGB 16.4 gm/dL (13.0-17.5); Lymphocytes # (A) 0.6 k/uL (1.0-4.8); Lymphocytes % (A) 5 %; MCHC 34.2 g/dL (31.0-37.0); MCV 96.6 fL (80.0-100.0); Mean Platelet Volume 8.3; Monocytes # (A) 0.4 k/uL (0-1.0); Monocytes % (A) 3 %; Neutrophils # (A) 12.7 k/uL (1.3-7.7); Neutrophils % (A) 91 %; Platelet Count 169 k/uL (150-450); RBC 4.97 m/uL (4.30-5.90); RDW 13.4 % (11.5-15.5); WBC 13.9 k/uL (3.8-10.6)
--- NOTE | 2018-03-23 08:00 | XR ---
EXAMINATION TYPE: XR KUB DATE OF EXAM: 03/23/2018 CLINICAL DATA: 47-year-old male with abdominal pain, [facility] COMPARISON: 09/27/2016 FINDINGS: Lung bases are clear. No evidence for free intraperitoneal air. No dilated small bowel or air-fluid levels. Scattered air and stool seen throughout the colon extendi ng distally into the rectum. No significant stool burden. Multiple pelvic phleboliths. Stable ovoid area of sclerosis in the left femoral neck most likely a bone island. IMPRESSION: No evidence of bowel obstruction or free intraperitoneal air. No significant stool burden.
[2018-03-23 08:09] LABS: ALT 30 U/L (21-72); AST 24 U/L (17-59); Albumin 5.5 g/dL (3.5-5.0); Alkaline Phosphatase 62 U/L (38-126); Amylase 52 U/L (30-110); Anion Gap 19 mmol/L; Blood Urea Nitrogen 19 mg/dL (9-20); Calcium 10.6 mg/dL (8.4-10.2); Carbon Dioxide 22 mmol/L (22-30); Chloride 104 mmol/L (98-107); Glucose 161 mg/dL (74-99); Lipase 25 U/L (23-300); Potassium 4.4 mmol/L (3.5-5.1); Sodium 145 mmol/L (137-145); Total Bilirubin 0.7 mg/dL (0.2-1.3); Total Protein 8.6 g/dL (6.3-8.2)
[2018-03-23 08:32] LABS: Appearance,Urine Clear (Clear); Bilirubin,Urine Negative (Negative); Blood,Urine Small (Negative); Color,Urine Yellow; Glucose,Urine (UA) Negative (Negative); Ketones,Urine 2+ (Negative); Leukocyte Esterase,Urine Negative (Negative); Mucus,Urine Few /hpf; Nitrite,Urine Negative (Negative); Protein,Urine 1+ (Negative); RBC,Urine 9 /hpf (0-5); Specific Gravity,Urine 1.028 (1.001-1.035); Squamous Epithelial Cell,Urine <1 /hpf (0-4); Urobilinogen,Urine <2.0 mg/dL (<2.0); WBC,Urine 1 /hpf (0-5)
[2018-03-23 08:56] VITALS: BP 105/71; PULSE 64; RESP 18
== END 2018-03-23 09:30 | disposition home or self-care (01) ==
LOC: EC 07:09
DX: F10.10 Alcohol abuse, uncomplicated (principal); R19.7 Diarrhea, unspecified; R11.2 Nausea with vomiting, unspecified; D72.829 Elevated white blood cell count, unspecified; R82.99 Other abnormal findings in urine; R31.9 Hematuria, unspecified; E83.52 Hypercalcemia; R10.84 Generalized abdominal pain; Z87.891 Personal history of nicotine dependence; Z88.8 Allergy status to other drugs, medicaments and biological substances; Z90.49 Acquired absence of other specified parts of digestive tract
CPT/HCPCS: 36415; 80053; 82150; 83690; 85025; 81001; 74018; 99284; 96374; 96361; J2270

== ENCOUNTER 2018-03-24 16:21 | Emergency (ER) | payer OTHER ==
[2018-03-24] MEDS ORDERED: LORazepam 1 MG TAB PO STA (16:59)
[2018-03-24] MEDS ORDERED: FOLIC ACID 1 MG TAB PO ONE (16:59)
[2018-03-24] MEDS ORDERED: THIAMINE 100 MG TAB PO ONE (16:59)
[2018-03-24] MEDS ORDERED: SODIUM CHLORIDE 0.9% 1,000 ML IV ONE (17:05)
--- NOTE | 2018-03-24 17:05 | ED ---
General Adult HPI - General Chief complaint: Nausea/Vomiting/Diarrhea Stated complaint: Nausea/Vomiting Time Seen by Provider: 03/24/18 16:40 Source: patient Mode of arrival: ambulatory Limitations: no limitations - History of Present Illness Initial comments: Patient is a 47-year-old male presents with a chief complaint of nausea, vomiting, and "just not feeling well". The patient was evaluated yesterday for the same. Review of yesterday's note reveals that the patient is a daily drinker. At that time, labs are normal, patient was counseled on alcohol abuse , and was discharged with Zofran after improvement of his symptoms. Patient returns today because the symptoms got worse. The patient cannot identify an inciting incident. There are no aggravating or alleviating factors. Timing is constant. The patient states his last drink was on Friday. He states he has never withdrawn from alcohol before. The patient states that he normally drinks 2-4 25 ounce beers per day. - Related Data Previous Rx's Medication Instructions Recorded Ondansetron Odt [Zofran Odt] 4 mg PO Q8HR PRN #10 tab 03/23/18 Multivitamins, Thera [Multivitamin 1 tab PO DAILY #30 tablet 03/24/18 (formulary)] Allergies Allergy/AdvReac Type Severity Reaction Status Date / Time cyclobenzaprine Allergy AGITATION Verified 03/24/18 16:49 [From Flexeril] Review of Systems ROS Statement: Those systems with pertinent positive or pertinent negative responses have been documented in the HPI. ROS Other: All systems not noted in ROS Statement are negative. Gastrointestinal: Reports: abdominal pain, nausea, vomiting, diarrhea Neurological: Reports: paresthesias (tingling in patients finger tips) Past Medical History Past Medical History: No Reported History Additional Past Medical History / Comment(s): hernia, alcoholism, History of Any Multi-Drug Resistant Organisms: None Reported Past Surgical History: Appendectomy, Hernia Repair Past Anesthesia/Blood Transfusion Reactions: No Reported Reaction Past Psychological History: No Psychological Hx Reported Smoking Status: Former smoker Past Alcohol Use History: Daily, Heavy Past Drug Use History: None Reported General Exam Limitations: no limitations General appearance: alert, in no apparent distress Head exam: Present: atraumatic, normocephalic Eye exam: Present: normal appearance ENT exam: Present: normal exam Neck exam: Present: normal inspection Respiratory exam: Present: normal lung sounds bilaterally. Absent: respiratory distress, wheezes Cardiovascular Exam: Present: regular rate, normal rhythm GI/Abdominal exam: Present: soft. Absent: distended, tenderness Rectal exam: Present: deferred Extremities exam: Present: normal inspection Back exam: Present: normal inspection Neurological exam: Present: alert, oriented X3 Psychiatric exam: Present: normal mood, anxious Skin exam: Present: warm, dry, intact Course Vital Signs 03/24/18 03/24/18 03/24/18 16:27 17:13 19:12 Temperature 99.2 F Pulse Rate 62 62 51 L Respiratory 18 24 16 Rate Blood Pressure 142/92 138/84 157/97 O2 Sat by Pulse 99 95 100 Oximetry 03/24/18 20:44 Temperature Pulse Rate 51 L Respiratory 16 Rate Blood Pressure 108/74 O2 Sat by Pulse 96 Oximetry Medical Decision Making - Medical Decision Making Chief complaint nausea and vomiting. Review of yesterday's visit for the same reveals normal labs. On initial evaluation, vital signs are stable, patient is in no acute distress however he appears anxious. He states he has never withdrawn from alcohol before. He states his last drink was on Friday. Patient to be evaluated with alcohol level, urine drug screen, and repeat basic labs including liver profile and lipase. Patient was given a liter of fluids, and will have by mouth Ativan. Patient also given folate, and thiamine. EKG performed at 514 shows sinus bradycardia with nonspecific ST and T wave abnormalities, specifically T-wave inversions in V4 through V6. There does not appear to be any reciprocal changes, there is no STEMI criteria present. 9:30 PM Lab evaluation of this patient is unremarkable including 2 sets of troponins. During a 5 hour observation in the emergency department, the patient did not have any episodes of nausea or vomiting. This time he is instructed to follow up with primary care in 1-2 days, return to the emergency departments and worsen or change. He was instructed to continue taking his prescribed Zofran as needed for nausea. She was prescribed a multivitamin given his daily drinking. Patient encouraged to quit drinking, follow-up with primary care for further resources. - Lab Data Result diagrams: 03/24/18 17:00 03/24/18 17:00 Lab Results 03/24/18 03/24/18 03/24/18 Range/Units 17:00 17:00 17:00 WBC 12.4 H (3.8-10.6) k/uL RBC 4.93 (4.30-5.90) m/uL Hgb 16.1 (13.0-17.5) gm/dL Hct 47.1 (39.0-53.0) % MCV 95.5 (80.0-100.0) fL MCH 32.7 (25.0-35.0) pg MCHC 34.2 (31.0-37.0) g/dL RDW 13.1 (11.5-15.5) % Plt Count 164 (150-450) k/uL Neutrophils % 80 % Lymphocytes % 12 % Monocytes % 7 % Eosinophils % 0 % Basophils % 0 % Neutrophils # 9.9 H (1.3-7.7) k/uL Lymphocytes # 1.5 (1.0-4.8) k/uL Monocytes # 0.8 (0-1.0) k/uL Eosinophils # 0.0 (0-0.7) k/uL Basophils # 0.0 (0-0.2) k/uL Sodium 144 (137-145) mmol/L Potassium 4.3 (3.5-5.1) mmol/L Chloride 105 (98-107) mmol/L Carbon Dioxide 23 (22-30) mmol/L Anion Gap 16 mmol/L BUN 19 (9-20) mg/dL Creatinine 1.15 (0.66-1.25) mg/dL Est GFR (CKD-EPI)AfAm 88 (>60 ml/min/1.73 sqM) Est GFR (CKD-EPI)NonAf 76 (>60 ml/min/1.73 sqM) Glucose 118 H (74-99) mg/dL Calcium 10.4 H (8.4-10.2) mg/dL Total Bilirubin 1.2 (0.2-1.3) mg/dL AST 31 (17-59) U/L ALT 35 (21-72) U/L Alkaline Phosphatase 58 (38-126) U/L Troponin I <0.012 (0.000-0.034) ng/mL NT-Pro-B Natriuret Pep pg/mL Total Protein 8.1 (6.3-8.2) g/dL Albumin 5.2 H (3.5-5.0) g/dL Lipase 35 (23-300) U/L Urine Opiates Screen (NotDetected) Ur Oxycodone Screen (NotDetected) Urine Methadone Screen (NotDetected) Ur Propoxyphene Screen (NotDetected) Ur Barbiturates Screen (NotDetected) U Tricyclic Antidepress (NotDetected) Ur Phencyclidine Scrn (NotDetected) Ur Amphetamines Screen (NotDetected) U Methamphetamines Scrn (NotDetected) U Benzodiazepines Scrn (NotDetected) Urine Cocaine Screen (NotDetected) U Marijuana (THC) Screen (NotDetected) Serum Alcohol <10 mg/dL 03/24/18 03/24/18 03/24/18 Range/Units 17:00 19:25 20:43 WBC (3.8-10.6) k/uL RBC (4.30-5.90) m/uL Hgb (13.0-17.5) gm/dL Hct (39.0-53.0) % MCV (80.0-100.0) fL MCH (25.0-35.0) pg MCHC (31.0-37.0) g/dL RDW (11.5-15.5) % Plt Count (150-450) k/uL Neutrophils % % Lymphocytes % % Monocytes % % Eosinophils % % Basophils % % Neutrophils # (1.3-7.7) k/uL Lymphocytes # (1.0-4.8) k/uL Monocytes # (0-1.0) k/uL Eosinophils # (0-0.7) k/uL Basophils # (0-0.2) k/uL Sodium (137-145) mmol/L Potassium (3.5-5.1) mmol/L Chloride (98-107) mmol/L Carbon Dioxide (22-30) mmol/L Anion Gap mmol/L BUN (9-20) mg/dL Creatinine (0.66-1.25) mg/dL Est GFR (CKD-EPI)AfAm (>60 ml/min/1.73 sqM) Est GFR (CKD-EPI)NonAf (>60 ml/min/1.73 sqM) Glucose (74-99) mg/dL Calcium (8.4-10.2) mg/dL Total Bilirubin (0.2-1.3) mg/dL AST (17-59) U/L ALT (21-72) U/L Alkaline Phosphatase (38-126) U/L Troponin I <0.012 (0.000-0.034) ng/mL NT-Pro-B Natriuret Pep 146 pg/mL Total Protein (6.3-8.2) g/dL Albumin (3.5-5.0) g/dL Lipase (23-300) U/L Urine Opiates Screen Detected H (NotDetected) Ur Oxycodone Screen Not Detected (NotDetected) Urine Methadone Screen Not Detected (NotDetected) Ur Propoxyphene Screen Not Detected (NotDetected) Ur Barbiturates Screen Not Detected (NotDetected) U Tricyclic Antidepress Not Detected (NotDetected) Ur Phencyclidine Scrn Not Detected (NotDetected) Ur Amphetamines Screen Not Detected (NotDetected) U Methamphetamines Scrn Not Detected (NotDetected) U Benzodiazepines Scrn Detected H (NotDetected) Urine Cocaine Screen Not Detected (NotDetected) U Marijuana (THC) Screen Not Detected (NotDetected) Serum Alcohol mg/dL Disposition Clinical Impression: Nausea & vomiting, Alcohol dependence Disposition: HOME SELF-CARE Condition: Good Instructions: Acute Nausea and Vomiting (ED) Prescriptions: Multivitamins, Thera [Multivitamin (formulary)] 1 tab PO DAILY #30 tablet Is patient prescribed a controlled substance at d/c from ED?: No Referrals: Raul Bowen MD [Primary Care Provider] - 1-2 days
[2018-03-24 17:15] LABS: Basophils % (A) 0 %; Eosinophils % (A) 0 %; HCT 47.1 % (39.0-53.0); HGB 16.1 gm/dL (13.0-17.5); Lymphocytes # (A) 1.5 k/uL (1.0-4.8); Lymphocytes % (A) 12 %; MCH 32.7 pg (25.0-35.0); MCHC 34.2 g/dL (31.0-37.0); MCV 95.5 fL (80.0-100.0); Mean Platelet Volume 9.4; Monocytes # (A) 0.8 k/uL (0-1.0); Monocytes % (A) 7 %; Neutrophils # (A) 9.9 k/uL (1.3-7.7); Neutrophils % (A) 80 %; Platelet Count 164 k/uL (150-450); RBC 4.93 m/uL (4.30-5.90); RDW 13.1 % (11.5-15.5); WBC 12.4 k/uL (3.8-10.6)
[2018-03-24 17:25] LABS: ALT 35 U/L (21-72); AST 31 U/L (17-59); Albumin 5.2 g/dL (3.5-5.0); Alcohol <10 mg/dL; Alkaline Phosphatase 58 U/L (38-126); Anion Gap 16 mmol/L; Blood Urea Nitrogen 19 mg/dL (9-20); Calcium 10.4 mg/dL (8.4-10.2); Carbon Dioxide 23 mmol/L (22-30); Chloride 105 mmol/L (98-107); Glucose 118 mg/dL (74-99); Lipase 35 U/L (23-300); Potassium 4.3 mmol/L (3.5-5.1); Sodium 144 mmol/L (137-145); Total Bilirubin 1.2 mg/dL (0.2-1.3); Total Protein 8.1 g/dL (6.3-8.2)
[2018-03-24] MEDS ORDERED: FAMOTIDINE 20 MG/2 ML VIAL IV STA (18:20)
[2018-03-24] MEDS ORDERED: MAG HYDROX/AL HYDROX/SIMETH 30 ML CUP PO PRN (18:20)
[2018-03-24] MEDS ORDERED: SUCRALFATE 1 GM TAB PO STA (18:21)
[2018-03-24 19:13] VITALS: RESP 16
[2018-03-24 19:45] LABS: Amphetamine Screen,Urine Not Detected (NotDetected); Barbiturate Screen,Urine Not Detected (NotDetected); Benzodiazepines Screen,Urine Detected (NotDetected); Cocaine Screen,Urine Not Detected (NotDetected); Methadone Screen, Urine Not Detected (NotDetected); Opiate Screen,Urine Detected (NotDetected); Oxycodone Screen, Urine Not Detected (NotDetected); Phencyclidine Screen,Urine Not Detected (NotDetected); Tricyclic Antidepressant,Urine Not Detected (NotDetected); Urn Cannabinoid Scrn Not Detected (NotDetected)
[2018-03-24 22:12] VITALS: BP 135/81; PULSE 50; TEMP 98.9
== END 2018-03-24 22:11 | disposition home or self-care (01) ==
LOC: EC 16:21
DX: F10.20 Alcohol dependence, uncomplicated (principal); R11.2 Nausea with vomiting, unspecified; R00.1 Bradycardia, unspecified; R94.31 Abnormal electrocardiogram [ECG] [EKG]; F41.9 Anxiety disorder, unspecified; Z87.891 Personal history of nicotine dependence; Z88.8 Allergy status to other drugs, medicaments and biological substances
CPT/HCPCS: 36415; 80053; 80306; 80320; 83690; 83880; 84484; 85025; 93005; 96361; 96374; 99284

== ENCOUNTER 2018-03-26 17:05 | Observation (INO) | payer OTHER ==
[2018-03-26] MEDS ORDERED: SODIUM CHLORIDE 0.9% 1,000 ML IV STA (17:22)
[2018-03-26] MEDS ORDERED: ONDANSETRON 4 MG/2 ML VIAL IVP STA (17:22)
[2018-03-26 17:34] LABS: Basophils % (A) 0 %; Eosinophils # (A) 0.1 k/uL (0-0.7); Eosinophils % (A) 1 %; HCT 43.1 % (39.0-53.0); Lymphocytes # (A) 1.4 k/uL (1.0-4.8); Lymphocytes % (A) 15 %; MCH 32.7 pg (25.0-35.0); MCHC 34.9 g/dL (31.0-37.0); MCV 93.7 fL (80.0-100.0); Mean Platelet Volume 9.5; Monocytes # (A) 0.8 k/uL (0-1.0); Monocytes % (A) 8 %; Neutrophils # (A) 7.2 k/uL (1.3-7.7); Neutrophils % (A) 74 %; Platelet Count 146 k/uL (150-450); RDW 12.6 % (11.5-15.5); WBC 9.7 k/uL (3.8-10.6)
--- NOTE | 2018-03-26 17:36 | XR ---
EXAMINATION TYPE: XR KUB DATE OF EXAM: 03/26/2018 COMPARISON: 03/23/2018 HISTORY: Nausea and vomiting TECHNIQUE: 2 views FINDINGS: There is no sign of intestinal obstruction or pneumoperitoneum. Fecal pattern is normal. Th ere are no pathologic calcifications over the kidneys. Lung bases are clear. IMPRESSION: Nonacute abdomen. No change.
[2018-03-26 17:46] LABS: ALT 73 U/L (21-72); AST 55 U/L (17-59); Albumin 4.3 g/dL (3.5-5.0); Alkaline Phosphatase 41 U/L (38-126); Amylase 33 U/L (30-110); Anion Gap 10 mmol/L; Blood Urea Nitrogen 18 mg/dL (9-20); Calcium 8.8 mg/dL (8.4-10.2); Carbon Dioxide 25 mmol/L (22-30); Chloride 105 mmol/L (98-107); Glucose 93 mg/dL (74-99); Lipase 40 U/L (23-300); Sodium 140 mmol/L (137-145); Total Bilirubin 1.7 mg/dL (0.2-1.3); Total Protein 6.6 g/dL (6.3-8.2)
[2018-03-26 17:48] LABS: Potassium 3.8 mmol/L (3.5-5.1)
[2018-03-26 18:01] LABS: Appearance,Urine Clear (Clear); Bilirubin,Urine Negative (Negative); Blood,Urine Trace (Negative); Color,Urine Yellow; Glucose,Urine (UA) Negative (Negative); Ketones,Urine 1+ (Negative); Leukocyte Esterase,Urine Negative (Negative); Mucus,Urine Occasional /hpf; Nitrite,Urine Negative (Negative); Protein,Urine 1+ (Negative); RBC,Urine 5 /hpf (0-5); Specific Gravity,Urine 1.027 (1.001-1.035); WBC,Urine 1 /hpf (0-5)
--- NOTE | 2018-03-26 18:21 | ED ---
General Adult HPI - General Chief complaint: Nausea/Vomiting/Diarrhea Stated complaint: nausea, vomiting Time Seen by Provider: 03/26/18 17:06 Source: patient, EMS, RN notes reviewed, old records reviewed Mode of arrival: EMS Limitations: no limitations - History of Present Illness Initial comments: 47 yo male presents for evaluation of nausea and vomiting. He also complains of abdominal pain which is predominantly epigastric and right upper quadrant. He has had subjective fever or chills. His symptoms have been ongoing for the past 5 days. This is his third visit to the emergency department with these complaints. No significant diarrhea. No lower abdominal pain. No chest pain or dyspnea. Patient is an alcoholic although his last drink was approximately 5 days ago. - Related Data Previous Rx's Medication Instructions Recorded Ondansetron Odt [Zofran Odt] 4 mg PO Q8HR PRN #10 tab 03/23/18 Multivitamins, Thera [Multivitamin 1 tab PO DAILY #30 tablet 03/24/18 (formulary)] Allergies Allergy/AdvReac Type Severity Reaction Status Date / Time cyclobenzaprine Allergy AGITATION Verified 03/26/18 17:42 [From Flexeril] Review of Systems ROS Statement: Those systems with pertinent positive or pertinent negative responses have been documented in the HPI. ROS Other: All systems not noted in ROS Statement are negative. Past Medical History Past Medical History: No Reported History Additional Past Medical History / Comment(s): hernia, alcoholism, History of Any Multi-Drug Resistant Organisms: None Reported Past Surgical History: Appendectomy, Hernia Repair Past Anesthesia/Blood Transfusion Reactions: No Reported Reaction Past Psychological History: No Psychological Hx Reported Smoking Status: Former smoker Past Alcohol Use History: Daily, Heavy Past Drug Use History: None Reported General Exam Limitations: no limitations General appearance: alert, in no apparent distress Head exam: Present: atraumatic, normocephalic Eye exam: Present: normal appearance, PERRL ENT exam: Present: mucous membranes dry Neck exam: Present: normal inspection. Absent: tenderness, meningismus Respiratory exam: Present: normal lung sounds bilaterally. Absent: respiratory distress, wheezes Cardiovascular Exam: Present: regular rate, normal rhythm GI/Abdominal exam: Present: soft, tenderness ( tenderness in the epigastric and right upper quadrant). Absent: distended Extremities exam: Present: normal inspection, full ROM, tenderness, normal capillary refill. Absent: pedal edema Neurological exam: Present: alert, oriented X3 Psychiatric exam: Present: normal affect, normal mood Course Vital Signs 03/26/18 03/26/18 03/26/18 17:06 18:47 19:22 Temperature 100.1 F H 99.8 F H Pulse Rate 53 L 52 L 54 L Respiratory 18 18 18 Rate Blood Pressure 131/81 161/101 151/93 O2 Sat by Pulse 97 100 100 Oximetry EKG Findings - EKG Comments: EKG Findings:: EKG: Sinus bradycardia, T-wave inversion in the lateral precordium, no ST segment changes rate of 55, NM interval 148, QRS duration 72, QTC 45 Medical Decision Making - Medical Decision Making 47 yo male with nausea vomiting and abdominal pain. Workup including CT, ultrasound gallbladder and abdominal x-ray is essentially negative. Ultrasound did show some pericholecystic fluid however there is no gallbladder wall thickening or dilatation of the common bile duct. No stones. Patient has a normal white count, stable hemoglobin, normal electrolytes. Total bili is mildly elevated at 1.7. Urinalysis shows 1+ ketones consistent with dehydration. After fluids and antiemetics patient continues to be symptomatic. He will be placed in observation for symptomatic treatment of acute nausea and vomiting. - Lab Data Result diagrams: 03/26/18 17:11 03/26/18 17:11 Lab Results 03/26/18 03/26/18 03/26/18 Range/Units 17:11 17:11 17:11 WBC 9.7 (3.8-10.6) k/uL RBC 4.60 (4.30-5.90) m/uL Hgb 15.0 (13.0-17.5) gm/dL Hct 43.1 (39.0-53.0) % MCV 93.7 (80.0-100.0) fL MCH 32.7 (25.0-35.0) pg MCHC 34.9 (31.0-37.0) g/dL RDW 12.6 (11.5-15.5) % Plt Count 146 L (150-450) k/uL Neutrophils % 74 % Lymphocytes % 15 % Monocytes % 8 % Eosinophils % 1 % Basophils % 0 % Neutrophils # 7.2 (1.3-7.7) k/uL Lymphocytes # 1.4 (1.0-4.8) k/uL Monocytes # 0.8 (0-1.0) k/uL Eosinophils # 0.1 (0-0.7) k/uL Basophils # 0.0 (0-0.2) k/uL Sodium 140 (137-145) mmol/L Potassium 3.8 (3.5-5.1) mmol/L Chloride 105 (98-107) mmol/L Carbon Dioxide 25 (22-30) mmol/L Anion Gap 10 mmol/L BUN 18 (9-20) mg/dL Creatinine 1.03 (0.66-1.25) mg/dL Est GFR (CKD-EPI)AfAm >90 (>60 ml/min/1.73 sqM) Est GFR (CKD-EPI)NonAf 87 (>60 ml/min/1.73 sqM) Glucose 93 (74-99) mg/dL Calcium 8.8 (8.4-10.2) mg/dL Total Bilirubin 1.7 H (0.2-1.3) mg/dL AST 55 (17-59) U/L ALT 73 H (21-72) U/L Alkaline Phosphatase 41 (38-126) U/L Troponin I <0.012 (0.000-0.034) ng/mL Total Protein 6.6 (6.3-8.2) g/dL Albumin 4.3 (3.5-5.0) g/dL Amylase 33 (30-110) U/L Lipase 40 (23-300) U/L Urine Color Urine Appearance (Clear) Urine pH (5.0-8.0) Ur Specific [place] (1.001-1.035) Urine Protein (Negative) Urine Glucose (UA) (Negative) Urine Ketones (Negative) Urine Blood (Negative) Urine Nitrite (Negative) Urine Bilirubin (Negative) Urine Urobilinogen (<2.0) mg/dL Ur Leukocyte Esterase (Negative) Urine RBC (0-5) /hpf Urine WBC (0-5) /hpf Urine Mucus (None) /hpf 03/26/18 Range/Units 17:45 WBC (3.8-10.6) k/uL RBC (4.30-5.90) m/uL Hgb (13.0-17.5) gm/dL Hct (39.0-53.0) % MCV (80.0-100.0) fL MCH (25.0-35.0) pg MCHC (31.0-37.0) g/dL RDW (11.5-15.5) % Plt Count (150-450) k/uL Neutrophils % % Lymphocytes % % Monocytes % % Eosinophils % % Basophils % % Neutrophils # (1.3-7.7) k/uL Lymphocytes # (1.0-4.8) k/uL Monocytes # (0-1.0) k/uL Eosinophils # (0-0.7) k/uL Basophils # (0-0.2) k/uL Sodium (137-145) mmol/L Potassium (3.5-5.1) mmol/L Chloride (98-107) mmol/L Carbon Dioxide (22-30) mmol/L Anion Gap mmol/L BUN (9-20) mg/dL Creatinine (0.66-1.25) mg/dL Est GFR (CKD-EPI)AfAm (>60 ml/min/1.73 sqM) Est GFR (CKD-EPI)NonAf (>60 ml/min/1.73 sqM) Glucose (74-99) mg/dL Calcium (8.4-10.2) mg/dL Total Bilirubin (0.2-1.3) mg/dL AST (17-59) U/L ALT (21-72) U/L Alkaline Phosphatase (38-126) U/L Troponin I (0.000-0.034) ng/mL Total Protein (6.3-8.2) g/dL Albumin (3.5-5.0) g/dL Amylase (30-110) U/L Lipase (23-300) U/L Urine Color Yellow Urine Appearance Clear (Clear) Urine pH 7.0 (5.0-8.0) Ur Specific [place] 1.027 (1.001-1.035) Urine Protein 1+ H (Negative) Urine Glucose (UA) Negative (Negative) Urine Ketones 1+ H (Negative) Urine Blood Trace H (Negative) Urine Nitrite Negative (Negative) Urine Bilirubin Negative (Negative) Urine Urobilinogen 6.0 (<2.0) mg/dL Ur Leukocyte Esterase Negative (Negative) Urine RBC 5 (0-5) /hpf Urine WBC 1 (0-5) /hpf Urine Mucus Occasional H (None) /hpf Disposition Clinical Impression: Dehydration, Intractable nausea and vomiting Disposition: ADMITTED IP TO THIS [facility] Condition: Stable Is patient prescribed a controlled substance at d/c from ED?: No Referrals: Raul Bowen MD [Primary Care Provider] - 1-2 days Decision to Admit Reason: Admit from EC Decision Date: 03/26/18 Decision Time: 20:41
[2018-03-26] MEDS ORDERED: MORPHINE SULFATE 2 MG/ML SYRINGE IVP STA (18:23)
--- NOTE | 2018-03-26 19:16 | US ---
EXAMINATION TYPE: US gallbladder DATE OF EXAM: 03/26/2018 COMPARISON: NONE CLINICAL HISTORY: Pain. Vomiting since Friday.Exam limitations due to bowel gas. EXAM MEASUREMENTS: Liver Length: 13.2 cm Gallbladder Wall: 0.25 cm CBD: 0.32 cm Right Kidney: 9.8 x 3.9 x 5.1 cm Pancreas: Obscured by bowel gas Liver: wnl Gallbladder: No stones seen. Some pericholecystic fluid seen. Evidence for sonographic Thomas's sign: No CBD: wnl Right Kidney: No hydronephrosis or masses seen IMPRESSION: No dilated ducts. No gallstones seen. There is trace amount of pericholecystic fluid of u ncertain significance.
--- NOTE | 2018-03-26 20:10 | CT ---
EXAMINATION TYPE: CT abdomen pelvis w con DATE OF EXAM: 03/26/2018 COMPARISON: 03/08/2017 HISTORY: Vomiting and constipation x4 days CT DLP: 356.5 mGycm Automated exposure control for dose reduction was used. TECHNIQUE: Helical acquisition of images was performed from the lung bases through the pelvis. CONTRAST: Performed without Oral Contrast and with IV Contrast, patient injected with 100 mL of Isovue 300. FINDINGS: Lung bases are clear. There is no pleural effusion. Heart size is normal. Liver spleen pancreas gallbladder appear normal. Bile ducts are not dilated. There is no adrenal mass . Kidneys show satisfactory contrast opacification. There is no hydronephrosis. There is no retroperi toneal adenopathy. There is no ascites. Bladder distends smoothly. I see no pelvic mass. I see no int estinal wall thickening. There are no dilated loops. Appendix is not seen. There is no sign of append icitis. Bony structures are intact. There is no sign of free air. IMPRESSION: NEGATIVE CT SCAN OF THE ABDOMEN AND PELVIS. NO ADVERSE CHANGE COMPARED TO OLD EXAM.
[2018-03-26] MEDS ORDERED: ONDANSETRON 4 MG/2 ML VIAL IVP PRN (20:37)
[2018-03-26] MEDS ORDERED: ACETAMINOPHEN TAB 325 MG TAB PO PRN (20:37)
[2018-03-26] MEDS ORDERED: NALOXONE 0.4 MG/ML 1 ML VIAL IV PRN (20:37)
[2018-03-26] MEDS ORDERED: MORPHINE SULFATE 2 MG/ML SYRINGE IV PRN (20:37)
[2018-03-26] MEDS: SODIUM CHLORIDE 0.9% 1,000 ML IV SCH (21:02)
[2018-03-26] MEDS ORDERED: LORazepam 2 MG/ML INJ IV PRN ×3 (22:59)
[2018-03-27] MEDS: HYDROcodone/APAP 5-325MG 1 EACH TAB PO PRN ×3 (04:47→18:12)
[2018-03-27 07:41] LABS: Basophils # (A) 0.1 k/uL (0-0.2); Basophils % (A) 1 %; Eosinophils # (A) 0.1 k/uL (0-0.7); Eosinophils % (A) 1 %; HCT 41.8 % (39.0-53.0); HGB 13.9 gm/dL (13.0-17.5); Lymphocytes # (A) 2.1 k/uL (1.0-4.8); Lymphocytes % (A) 24 %; MCH 32.6 pg (25.0-35.0); MCHC 33.1 g/dL (31.0-37.0); MCV 98.4 fL (80.0-100.0); Mean Platelet Volume 8.9; Monocytes # (A) 0.6 k/uL (0-1.0); Monocytes % (A) 7 %; Neutrophils # (A) 5.8 k/uL (1.3-7.7); Neutrophils % (A) 66 %; Platelet Count 125 k/uL (150-450); RBC 4.25 m/uL (4.30-5.90); RDW 13.1 % (11.5-15.5); WBC 8.8 k/uL (3.8-10.6)
[2018-03-27 08:03] LABS: ALT 61 U/L (21-72); AST 32 U/L (17-59); Albumin 3.5 g/dL (3.5-5.0); Alkaline Phosphatase 38 U/L (38-126); Anion Gap 9 mmol/L; Blood Urea Nitrogen 16 mg/dL (9-20); Calcium 8.6 mg/dL (8.4-10.2); Carbon Dioxide 25 mmol/L (22-30); Chloride 106 mmol/L (98-107); Glucose 82 mg/dL (74-99); Magnesium 2.2 mg/dL (1.6-2.3); Potassium 3.7 mmol/L (3.5-5.1); Sodium 140 mmol/L (137-145); Total Bilirubin 1.8 mg/dL (0.2-1.3); Total Protein 5.7 g/dL (6.3-8.2)
[2018-03-27] MEDS: SODIUM CHLORIDE 0.9% 1,000 ML IV SCH ×2 (11:12→22:32)
[2018-03-27] MEDS: FAMOTIDINE 20 MG/2 ML VIAL IV SCH (21:28)
--- NOTE | 2018-03-27 21:29 | P.HPIM ---
History of Present Illness H&P Date: 03/27/18 Chief Complaint: Nausea and vomiting Patient is a 47-year-old male with a known history of alcoholism came to ER with complaints of abdominal pain along with nausea and vomiting. Abdominal pain is mainly in the epigastric region and right upper quadrant. Patient was also complaining of subjective fever and chills on admission. Apparently patient has been having the symptoms for the past 5 days. He came to ER for 3 times. No significant diarrhea. No lower abdominal pain. No chest pain or dyspnea. Patient is an alcoholic although his last drink was approximately [address] abdomen and pelvis showed no adverse changes compared to prior exam KUB x-ray showed no acute abdominal X line Ultrasound abdomen showed no ductal dilatation. No gallstones seen. there is trace amount of pericholecystic fluid of uncertain significance. Review of Systems Constitutional: Patient denies any fever or chills . No generalized weakness or weight loss. Abdomen: Patient denied nausea vomiting and diarrhea . Epigastric abdominal pain.. Cardiovascular: Patient denies any chest pain or short of breath no palpitations. Respiratory: patient denied any cough is from production. No shortness of breath Neurologic: Patient denied any numbness or tingling headache. Musculoskeletal: Patient denies any complaints of joint swelling or deformity. Skin: Negative Psychiatric: Negative Endocrine: No heat or cold intolerance. No recent weight gain. Genitourinary: No dysuria or hematuria. All other 14 point ROS negative except the above Past Medical History Past Medical History: No Reported History Additional Past Medical History / Comment(s): hernia, alcoholism, History of Any Multi-Drug Resistant Organisms: None Reported Past Surgical History: Appendectomy, Hernia Repair Additional Past Surgical History / Comment(s): Appendix was last year Past Anesthesia/Blood Transfusion Reactions: No Reported Reaction Past Psychological History: No Psychological Hx Reported Smoking Status: Former smoker Past Alcohol Use History: Daily, Heavy Past Drug Use History: None Reported - Past Family History Mother Family Medical History: No Reported History Father Family Medical History: No Reported History Medications and Allergies Home Medications Medication Instructions Recorded Confirmed Type Ondansetron Odt [Zofran Odt] 4 mg PO Q8HR PRN #10 tab 03/23/18 03/26/18 Rx Multivitamins, Thera [Multivitamin 1 tab PO DAILY #30 tablet 03/24/18 03/26/18 Rx (formulary)] Allergies Allergy/AdvReac Type Severity Reaction Status Date / Time cyclobenzaprine Allergy AGITATION Verified 03/26/18 22:24 [From Flexeril] Physical Exam Vitals: Vital Signs Temp Pulse Pulse Resp BP BP Pulse Ox 03/27/18 15:13 97.6 F 52 L 16 101/70 99 03/27/18 07:26 98.6 F 45 L 16 108/75 96 03/27/18 00:40 98.3 F 51 L 16 105/39 98 03/26/18 21:25 98.9 F 50 L 16 114/72 99 03/26/18 21:12 99.9 F H 51 L 18 120/79 100 03/26/18 19:22 99.8 F H 54 L 18 151/93 100 03/26/18 18:47 52 L 18 161/101 100 03/26/18 17:06 100.1 F H 53 L 18 131/81 97 Intake and Output 03/27/18 03/27/18 03/27/18 06:59 14:59 22:59 Intake Total 1100 600 Output Total 975 Balance 125 600 Intake: Intake, IV Titration 600 600 Amount Sodium Chloride 0.9% 1, 600 600 000 ml @ 75 mls/hr IV . [id number] [facility] Rx#:[id number] Oral 500 Output: Urine 975 Other: Voiding Method Urinal # Voids 2 1 PHYSICAL EXAMINATION: Patient is lying in the bed comfortably, no acute distress, awake alert and oriented.. HEENT: Normocephalic. Neck is supple. Pupils reactive. Nostrils clear. Oral cavity is moist. Ears reveal no drainage. Neck reveals no JVD, carotid bruits, or thyromegaly. CHEST EXAMINATION: Trachea is central. Symmetrical expansion. Lung castro clear to auscultation and percussion. CARDIAC: Normal S1, S2 with no gallops. No murmurs ABDOMEN: Soft. Mild epigastric tenderness. Bowel sounds normal. No organomegaly. No abdominal bruits. Extremities: reveal no edema. No clubbing or cyanosis Neurologically awake, alert, oriented x3 with well-coordinated movements. No focal deficits noted Skin: No rash or skin lesions. Psychiatric: Coperative. Nonsuicidal Musculoskeletal: No joint swelling or deformity. Normal range of motion. Results CBC & Chem 7: 18 06:27 18 06:27 Labs: Abnormal Lab Results - Last 24 Hours (Table) 03/26/18 03/26/18 03/26/18 Range/Units 17:11 17:11 17:45 RBC (4.30-5.90) m/uL Plt Count 146 L (150-450) k/uL Total Bilirubin 1.7 H (0.2-1.3) mg/dL ALT 73 H (21-72) U/L Total Protein (6.3-8.2) g/dL Urine Protein 1+ H (Negative) Urine Ketones 1+ H (Negative) Urine Blood Trace H (Negative) Urine Mucus Occasional H (None) /hpf 03/27/18 03/27/18 Range/Units 06:27 06:27 RBC 4.25 L (4.30-5.90) m/uL Plt Count 125 L (150-450) k/uL Total Bilirubin 1.8 H (0.2-1.3) mg/dL ALT (21-72) U/L Total Protein 5.7 L (6.3-8.2) g/dL Urine Protein (Negative) Urine Ketones (Negative) Urine Blood (Negative) Urine Mucus (None) /hpf Thrombosis Risk Factor Assmnt - DVT/VTE Prophylaxis DVT/VTE Prophylaxis: Pharmacologic Prophylaxis ordered - Choose All That Apply Each Factor Represents 1 point: Age 41-60 years Other Risk Factors: No Thrombosis Risk Factor Assessment Total Risk Factor Score: 1 Thrombosis Risk Factor Assessment Level: Low Risk Assessment and Plan Assessment: Intractable nausea vomiting abdominal pain likely due to alcohol gastritis Alcohol abuse. Lasting 5 days ago Mild hyperbilirubinemia Slightly elevated ALT Sinus bradycardia. He is symptomatic. DVT prophylaxis Plan: Patient will be continued on IV fluids and pain management along with symptomatic management for nausea and vomiting. Patient also be started on Zantac IV twice a day. Continue with liquid diet and advance as tolerated. Further recommendations based on the clinical course. Counseled for alcohol abuse extensively. Time with Patient: Greater than 30
[2018-03-28] MEDS: FAMOTIDINE 20 MG/2 ML VIAL IV SCH (10:30)
[2018-03-28] MEDS: SODIUM CHLORIDE 0.9% 1,000 ML IV SCH (11:17)
[2018-03-28] MEDS ORDERED: SODIUM CHLORIDE 0.9% 500 ML IV ONE (14:15)
[2018-03-28 15:01] VITALS: PULSE 67; RESP 17; TEMP 98.4
[2018-03-28 15:02] VITALS: BP 100/75
--- NOTE | 2018-03-29 00:35 | P.DS ---
Providers Date of admission: 03/26/18 20:39 Expected date of discharge: 03/28/18 Attending physician: Satish Mandujano Primary care physician: Raul Bowen [facility] Hospital Course: Discharge diagnosis Intractable nausea vomiting abdominal pain likely due to alcohol gastritis Alcohol abuse. Lasting 5 days ago. Monitored for withdrawal symptoms. Mild hyperbilirubinemia Slightly elevated ALT Sinus bradycardia. He is symptomatic. Heart rate improved now. DVT prophylaxis Hospital course Patient is a 47-year-old male with a known history of alcoholism came to ER with complaints of abdominal pain along with nausea and vomiting. Abdominal pain is mainly in the epigastric region and right upper quadrant. Patient was also complaining of subjective fever and chills on admission. Apparently patient has been having the symptoms for the past 5 days. He came to ER for 3 times. No significant diarrhea. No lower abdominal pain. No chest pain or dyspnea. Patient is an alcoholic although his last drink was approximately [address] abdomen and pelvis showed no adverse changes compared to prior exam KUB x-ray showed no acute abdominal X line Ultrasound abdomen showed no ductal dilatation. No gallstones seen. there is trace amount of pericholecystic fluid of uncertain significance. Patient was continued on IV fluids and pain management along with symptomatic management for nausea and vomiting. Patient also be started on Zantac IV twice a day. Continued with liquid diet and advance as tolerated. Currently patient is tolerating solid diet. Otherwise blood pressure is slightly low this morning and was given fluid boluses. Patient is otherwise asymptomatic. He went to be discharged home. Counseled for alcohol abuse extensively. PHYSICAL EXAMINATION: Patient is lying in the bed comfortably, no acute distress, awake alert and oriented.. HEENT: Normocephalic. Neck is supple. Pupils reactive. Nostrils clear. Oral cavity is moist. Ears reveal no drainage. Neck reveals no JVD, carotid bruits, or thyromegaly. CHEST EXAMINATION: Trachea is central. Symmetrical expansion. Lung castro clear to auscultation and percussion. CARDIAC: Normal S1, S2 with no gallops. No murmurs ABDOMEN: Soft. Bowel sounds normal. No organomegaly. No abdominal bruits. Extremities: reveal no edema. No clubbing or cyanosis Neurologically awake, alert, oriented x3 with well-coordinated movements. No focal deficits noted Skin: No rash or skin lesions. Psychiatric: Coperative. Nonsuicidal Musculoskeletal: No joint swelling or deformity. Normal range of motion. Vital Signs - 24 hr 03/28/18 03/28/18 03/28/18 00:40 07:36 13:31 Temperature 98.1 F 97.9 F Pulse Rate [ 60 49 L 62 Pulse Oximetery ] Respiratory 14 18 Rate Blood Pressure 102/68 91/60 94/40 [Left Arm] Blood Pressure [Right Arm] O2 Sat by Pulse 99 98 Oximetry 03/28/18 15:00 Temperature 98.4 F Pulse Rate [ 67 Pulse Oximetery ] Respiratory 17 Rate Blood Pressure 100/75 [Left Arm] Blood Pressure 105/60 [Right Arm] O2 Sat by Pulse 99 Oximetry Patient Condition at Discharge: Stable Plan - Discharge Summary Discharge Rx Participant: Yes New Discharge Prescriptions: New Thiamine [Vitamin B-1] 100 mg PO DAILY #30 tablet Continue Ondansetron Odt [Zofran ODT] 4 mg PO Q8HR PRN #10 tab PRN Reason: Vomiting Multivitamins, Thera [Multivitamin (formulary)] 1 tab PO DAILY #30 tablet Discharge Medication List Ondansetron Odt [Zofran ODT] 4 mg PO Q8HR PRN #10 tab 03/23/18 [Rx] Multivitamins, Thera [Multivitamin (formulary)] 1 tab PO DAILY #30 tablet [Rx] Thiamine [Vitamin B-1] 100 mg PO DAILY #30 tablet 03/28/18 [Rx] Follow up Appointment(s)/Referral(s): Raul Bowen MD [Primary Care Provider] - 1-2 days Discharge Disposition: HOME SELF-CARE
== END 2018-03-28 16:25 | disposition home or self-care (01) ==
LOC: EC 17:05 → 3SUR 20:39
PROVIDERS: ADMIT Hospitalist; ATTEND Hospitalist
DX: R11.2 Nausea with vomiting, unspecified (principal); E86.0 Dehydration; R10.11 Right upper quadrant pain; R10.13 Epigastric pain; R50.9 Fever, unspecified; F10.20 Alcohol dependence, uncomplicated; R00.1 Bradycardia, unspecified; E80.7 Disorder of bilirubin metabolism, unspecified; R74.0 Nonspecific elevation of levels of transaminase and lactic acid dehydrogenase [LDH]; Z87.891 Personal history of nicotine dependence; Z88.8 Allergy status to other drugs, medicaments and biological substances; Z90.89 Acquired absence of other organs
CPT/HCPCS: 99285 ×2; 96374 ×2; 96375 ×3; 96376 ×3; 96361 ×4; 36415; 93005 ×2; 80053 ×2; 82150; 83690; 83735; 84484; 85025 ×2; 81001; 74018; 76705; 74177; G0378 ×3; J2405 ×2; J2270; Q9967

== ENCOUNTER 2018-05-17 21:48 | Emergency (ER) | payer OTHER ==
[2018-05-17] MEDS ORDERED: PANTOPRAZOLE 40 MG/10 ML VIAL IVP STA (22:13)
[2018-05-17] MEDS ORDERED: LORazepam 2 MG/ML INJ IV STA (22:13)
[2018-05-17] MEDS ORDERED: ONDANSETRON 4 MG/2 ML VIAL IVP STA (22:13)
[2018-05-17] MEDS ORDERED: SODIUM CHLORIDE 0.9% 1,000 ML IV STA (22:13)
--- NOTE | 2018-05-17 22:18 | ED ---
Nausea/Vomiting/Diarrhea HPI - General Chief complaint: Nausea/Vomiting/Diarrhea Stated complaint: Abdominal Pain Time Seen by Provider: 05/17/18 21:52 Source: EMS Mode of arrival: EMS Limitations: no limitations - History of Present Illness Initial comments: 47-year-old male patient presents the emergency department today for complaints of generalized abdominal pain, nausea, and vomiting. Patient states that symptoms started this afternoon. Patient states he has been vomiting nonstop. He is unable to keep down any food or fluids. Patient states he has frequent have these symptoms. Patient does admit to drinking alcohol daily basis, states he has not had alcohol for the last 2 days. Patient denies any hematemesis, hematochezia, or melena. Denies any difficulty with urination. Is unsure sees had any fevers states he has been chilled. Patient denies any history of medical problems and denies taking any medications. Patient denies any recent rash, shortness breath, chest pain, back pain, numbness, tingling, dizziness, weakness, hematuria, dysuria, urinary urgency, urinary frequency, headache, visual changes, or any other complaints. - Related Data Previous Rx's Medication Instructions Recorded Ondansetron Odt [Zofran ODT] 4 mg PO Q8HR PRN #10 tab 03/23/18 Multivitamins, Thera [Multivitamin 1 tab PO DAILY #30 tablet 03/24/18 (formulary)] Thiamine [Vitamin B-1] 100 mg PO DAILY #30 tablet 03/28/18 Allergies Allergy/AdvReac Type Severity Reaction Status Date / Time cyclobenzaprine Allergy AGITATION Verified 05/17/18 22:00 [From Flexeril] Review of Systems ROS Statement: Those systems with pertinent positive or pertinent negative responses have been documented in the HPI. ROS Other: All systems not noted in ROS Statement are negative. Past Medical History Past Medical History: No Reported History Additional Past Medical History / Comment(s): hernia, alcoholism, History of Any Multi-Drug Resistant Organisms: None Reported Past Surgical History: Appendectomy, Hernia Repair Additional Past Surgical History / Comment(s): Appendix was last year Past Anesthesia/Blood Transfusion Reactions: No Reported Reaction Past Psychological History: No Psychological Hx Reported Smoking Status: Light tobacco smoker Past Alcohol Use History: Abuse, Daily, Heavy Past Drug Use History: None Reported - Past Family History Mother Family Medical History: No Reported History Father Family Medical History: No Reported History General Exam Limitations: no limitations General appearance: alert, in no apparent distress, other (This is a well- developed, well-nourished adult male patient in mild distress due to vomiting. Vital signs upon presentation are temperature 97.9F, pulse 62, respirations 18 , blood pressure 117/73, pulse ox 97% on room air.) Eye exam: Present: normal appearance, PERRL, EOMI. Absent: scleral icterus, conjunctival injection, periorbital swelling ENT exam: Present: normal exam, normal oropharynx, mucous membranes moist Neck exam: Present: normal inspection. Absent: tenderness, meningismus, lymphadenopathy Respiratory exam: Present: normal lung sounds bilaterally. Absent: respiratory distress, wheezes, rales, rhonchi, stridor Cardiovascular Exam: Present: regular rate, normal rhythm, normal heart sounds. Absent: systolic murmur, diastolic murmur, rubs, gallop, clicks GI/Abdominal exam: Present: soft, tenderness (Generalized), normal bowel sounds. Absent: distended, guarding, rebound, rigid Neurological exam: Present: alert, oriented X3, CN II-XII intact Psychiatric exam: Present: normal affect, normal mood Skin exam: Present: warm, dry, intact, normal color. Absent: rash Course Vital Signs 05/17/18 05/18/18 22:00 00:59 Temperature 97.9 F 98.5 F Pulse Rate 62 98 Respiratory 18 20 Rate Blood Pressure 117/73 130/66 O2 Sat by Pulse 97 98 Oximetry Medical Decision Making - Medical Decision Making 47 year-old male patient with past medical history significant for chronic alcohol abuse presented to the emergency department today for evaluation of abdominal discomfort and vomiting. Physical examination did reveal some mild abdominal tenderness. Patient was vomiting upon arrival. After receiving medications and IV fluids in the emergency department he is feeling better has not had any vomiting since. Labs reviewed and did reveal an elevated white blood cell count likely reactive from vomiting. He has no fever, vitals are stable. He will be discharged home to follow-up with his primary care physician. He is advised against using alcohol. Return parameters discussed in detail. He verbalizes understanding and agree with this plan. - Lab Data Result diagrams: 05/17/18 22:22 05/17/18 22:22 Lab Results 08/09/2205/17/18 05/18/18 Range/Units 22:22 22:22 00:01 WBC 15.5 H (3.8-10.6) k/uL RBC 4.65 (4.30-5.90) m/uL Hgb 14.6 (13.0-17.5) gm/dL Hct 44.8 (39.0-53.0) % MCV 96.3 (80.0-100.0) fL MCH 31.4 (25.0-35.0) pg MCHC 32.6 (31.0-37.0) g/dL RDW 13.6 (11.5-15.5) % Plt Count 179 (150-450) k/uL Neutrophils % 89 % Lymphocytes % 5 % Monocytes % 5 % Eosinophils % 0 % Basophils % 0 % Neutrophils # 13.8 H (1.3-7.7) k/uL Lymphocytes # 0.7 L (1.0-4.8) k/uL Monocytes # 0.8 (0-1.0) k/uL Eosinophils # 0.1 (0-0.7) k/uL Basophils # 0.0 (0-0.2) k/uL Sodium 141 (137-145) mmol/L Potassium 4.3 (3.5-5.1) mmol/L Chloride 108 H (98-107) mmol/L Carbon Dioxide 20 L (22-30) mmol/L Anion Gap 13 mmol/L BUN 18 (9-20) mg/dL Creatinine 0.90 (0.66-1.25) mg/dL Est GFR (CKD-EPI)AfAm >90 (>60 ml/min/1.73 sqM) Est GFR (CKD-EPI)NonAf >90 (>60 ml/min/1.73 sqM) Glucose 110 H (74-99) mg/dL Calcium 9.7 (8.4-10.2) mg/dL Total Bilirubin 0.7 (0.2-1.3) mg/dL AST 45 (17-59) U/L ALT 44 (21-72) U/L Alkaline Phosphatase 64 (38-126) U/L Total Protein 7.3 (6.3-8.2) g/dL Albumin 4.8 (3.5-5.0) g/dL Amylase 48 (30-110) U/L Lipase 63 (23-300) U/L Urine Color Yellow Urine Appearance Clear (Clear) Urine pH 6.0 (5.0-8.0) Ur Specific [place] 1.025 (1.001-1.035) Urine Protein 1+ H (Negative) Urine Glucose (UA) Trace H (Negative) Urine Ketones 4+ H (Negative) Urine Blood Negative (Negative) Urine Nitrite Negative (Negative) Urine Bilirubin Negative (Negative) Urine Urobilinogen <2.0 (<2.0) mg/dL Ur Leukocyte Esterase Small H (Negative) Urine RBC 2 (0-5) /hpf Urine WBC 1 (0-5) /hpf Ur Squamous Epith Cells <1 (0-4) /hpf Urine Bacteria Rare H (None) /hpf Urine Mucus Rare H (None) /hpf - Radiology Data Radiology results: report reviewed, image reviewed Single view of the abdomen is obtained. There is no sign of intestinal structure pneumoperitoneum. Fecal pattern is normal. There are numerous level of the pelvis. There is no pathologic calcifications over the kidneys. Impression by Dr. Jacobs shows nonacute abdomen with no change. Disposition Clinical Impression: Abdominal pain, Vomiting Disposition: HOME SELF-CARE Condition: Good Instructions: Acute Nausea and Vomiting (ED), Abdominal Pain (ED) Additional Instructions: Start with clear liquid diet and advance as tolerated. Avoid alcohol use. Follow-up with your primary care physician for recheck in 1-2 days. Return here immediately for any new, worsening, or concerning symptoms. Is patient prescribed a controlled substance at d/c from ED?: No Referrals: Raul Bowen MD [Primary Care Provider] - 1-2 days Time of Disposition: 00:39
[2018-05-17 22:34] LABS: Basophils % (A) 0 %; Eosinophils # (A) 0.1 k/uL (0-0.7); Eosinophils % (A) 0 %; HCT 44.8 % (39.0-53.0); HGB 14.6 gm/dL (13.0-17.5); Lymphocytes # (A) 0.7 k/uL (1.0-4.8); Lymphocytes % (A) 5 %; MCH 31.4 pg (25.0-35.0); MCHC 32.6 g/dL (31.0-37.0); MCV 96.3 fL (80.0-100.0); Mean Platelet Volume 8.6; Monocytes # (A) 0.8 k/uL (0-1.0); Monocytes % (A) 5 %; Neutrophils # (A) 13.8 k/uL (1.3-7.7); Neutrophils % (A) 89 %; Platelet Count 179 k/uL (150-450); RBC 4.65 m/uL (4.30-5.90); RDW 13.6 % (11.5-15.5); WBC 15.5 k/uL (3.8-10.6)
[2018-05-17 22:44] LABS: ALT 44 U/L (21-72); AST 45 U/L (17-59); Albumin 4.8 g/dL (3.5-5.0); Alkaline Phosphatase 64 U/L (38-126); Amylase 48 U/L (30-110); Anion Gap 13 mmol/L; Blood Urea Nitrogen 18 mg/dL (9-20); Calcium 9.7 mg/dL (8.4-10.2); Carbon Dioxide 20 mmol/L (22-30); Chloride 108 mmol/L (98-107); Glucose 110 mg/dL (74-99); Lipase 63 U/L (23-300); Potassium 4.3 mmol/L (3.5-5.1); Sodium 141 mmol/L (137-145); Total Bilirubin 0.7 mg/dL (0.2-1.3); Total Protein 7.3 g/dL (6.3-8.2)
--- NOTE | 2018-05-17 22:44 | XR ---
EXAMINATION TYPE: XR KUB DATE OF EXAM: 05/17/2018 COMPARISON: 03/26/2018 HISTORY: Nausea and vomiting TECHNIQUE: Single view FINDINGS: There is no sign of intestinal obstruction or pneumoperitoneum. Fecal pattern is normal. Th ere are numerous phleboliths in the pelvis. There are no pathologic calcifications over the kidneys. IMPRESSION: Nonacute abdomen. No change.
[2018-05-18 00:32] LABS: Appearance,Urine Clear (Clear); Bacteria,Urine Rare /hpf; Bilirubin,Urine Negative (Negative); Blood,Urine Negative (Negative); Color,Urine Yellow; Glucose,Urine (UA) Trace (Negative); Ketones,Urine 4+ (Negative); Leukocyte Esterase,Urine Small (Negative); Mucus,Urine Rare /hpf; Nitrite,Urine Negative (Negative); Protein,Urine 1+ (Negative); RBC,Urine 2 /hpf (0-5); Specific Gravity,Urine 1.025 (1.001-1.035); Squamous Epithelial Cell,Urine <1 /hpf (0-4); Urobilinogen,Urine <2.0 mg/dL (<2.0); WBC,Urine 1 /hpf (0-5)
[2018-05-18 01:00] VITALS: BP 130/66; PULSE 98; RESP 20; TEMP 98.5
== END 2018-05-18 01:00 | disposition home or self-care (01) ==
LOC: EC 21:48
DX: R10.84 Generalized abdominal pain (principal); R11.2 Nausea with vomiting, unspecified; F17.200 Nicotine dependence, unspecified, uncomplicated; Z90.49 Acquired absence of other specified parts of digestive tract; Z87.19 Personal history of other diseases of the digestive system; Z98.890 Other specified postprocedural states; Z88.8 Allergy status to other drugs, medicaments and biological substances
CPT/HCPCS: 36415; 80053; 82150; 83690; 85025; 81001; 74018; 99284; 96374; 96375 ×2; 96361 ×3; J2060; J2405; C9113

== ENCOUNTER 2018-05-19 16:46 | Inpatient (IN) | payer OTHER ==
[2018-05-19] MEDS ORDERED: ONDANSETRON 4 MG/2 ML VIAL IVP STA (17:28)
[2018-05-19] MEDS ORDERED: SODIUM CHLORIDE 0.9% 1,000 ML IV STA (17:28)
[2018-05-19] MEDS ORDERED: KETOROLAC 30 MG/ML 1 ML VIAL IVP STA (17:29)
--- NOTE | 2018-05-19 18:26 | ED ---
General Adult HPI - General Source: patient, EMS, RN notes reviewed Mode of arrival: EMS Limitations: no limitations <Eric Dos Santos - Last Filed: 05/19/18 20:04> <Zhen Roy - Last Filed: 05/19/18 20:17> - General Chief complaint: Nausea/Vomiting/Diarrhea Stated complaint: weakness/dizziness Time Seen by Provider: 05/19/18 17:03 - History of Present Illness Initial comments: 47-year-old male presents to the emergency department for a chief complaint of nausea and vomiting 4 days. Patient states he helped set up a birthday constitution party 5 days ago. The day after that he began to feel nauseous and has felt that way since. Patient states he vomits multiple times a day and is unsure of how many times. Patient denies any diarrhea or bloody stools. Patient admits to lower abdominal pain and cramping. Patient states he has not been able to keep down solids or liquids. Patient states he was admitted for similar symptoms last year and they were able to help his symptoms until he could tolerate solids. Patient states that he drinks daily but has not had any alcoholic beverages since 5 days ago. Patient states he does not feel as if he is withdrawing. Patient has no other complaints at this time including shortness of breath, chest pain, abdominal pain, nausea or vomiting, headache, or visual changes. ( Eric Dos Santos) - Related Data Home Medications Medication Instructions Recorded Confirmed No Known Home Medications 05/19/18 05/19/18 Allergies Allergy/AdvReac Type Severity Reaction Status Date / Time cyclobenzaprine AdvReac AGITATION Verified 05/19/18 16:58 [From Flexeril] Review of Systems ROS Other: All systems not noted in ROS Statement are negative. <Eric Dos Santos - Last Filed: 05/19/18 20:04> ROS Other: All systems not noted in ROS Statement are negative. <Zhen Roy - Last Filed: 05/19/18 20:17> ROS Statement: Those systems with pertinent positive or pertinent negative responses have been documented in the HPI. Past Medical History Past Medical History: No Reported History Additional Past Medical History / Comment(s): hernia, alcoholism, History of Any Multi-Drug Resistant Organisms: None Reported Past Surgical History: Appendectomy, Hernia Repair Additional Past Surgical History / Comment(s): Appendix was last year Past Anesthesia/Blood Transfusion Reactions: No Reported Reaction Past Psychological History: No Psychological Hx Reported Smoking Status: Light tobacco smoker Past Alcohol Use History: Abuse, Daily, Heavy Past Drug Use History: None Reported - Past Family History Mother Family Medical History: No Reported History Father Family Medical History: No Reported History <Eric Dos Santos - Last Filed: 05/19/18 20:04> General Exam Limitations: no limitations General appearance: alert, in no apparent distress Head exam: Present: atraumatic, normocephalic, normal inspection Eye exam: Present: normal appearance, PERRL, EOMI. Absent: scleral icterus, conjunctival injection, nystagmus ENT exam: Present: normal exam, normal oropharynx, mucous membranes moist, TM's normal bilaterally, normal external ear exam Neck exam: Present: normal inspection, full ROM. Absent: tenderness, meningismus, lymphadenopathy Respiratory exam: Present: normal lung sounds bilaterally. Absent: respiratory distress, wheezes, rales, rhonchi, stridor Cardiovascular Exam: Present: regular rate, normal rhythm, normal heart sounds. Absent: systolic murmur, diastolic murmur, rubs, gallop, clicks GI/Abdominal exam: Present: soft, tenderness (LLQ tenderness), normal bowel sounds. Absent: distended, guarding, rebound, rigid Neurological exam: Present: alert, oriented X3, CN II-XII intact Psychiatric exam: Present: normal affect, normal mood Skin exam: Present: warm, dry, intact, normal color. Absent: rash, diaphoretic <Eric Dos Santos - Last Filed: 05/19/18 20:04> Course <Eric Dos Santos - Last Filed: 05/19/18 20:04> <Zhen Roy - Last Filed: 05/19/18 20:17> Vital Signs 05/19/18 16:59 Temperature 98 F Pulse Rate 55 L Respiratory 18 Rate Blood Pressure 122/73 O2 Sat by Pulse 100 Oximetry - Reevaluation(s) Reevaluation #1: 05/19/18 20:17 PA supervision: I personally saw and examined the patient. I have reviewed and agree with the PA findings including all diagnostic interpretations and treatment plans is written less otherwise stated. I did discuss the case with Dr. singh. (Zhen Roy) Medical Decision Making - Lab Data Result diagrams: 05/19/18 18:46 05/19/18 18:46 <Eric Dos Santos - Last Filed: 05/19/18 20:04> - Lab Data Result diagrams: 05/19/18 18:46 05/19/18 18:46 <Zhen Roy - Last Filed: 05/19/18 20:17> - Medical Decision Making 47 her old male presents to the emergency department for a chief complaint of nausea and vomiting as well as abdominal pain 4 days. Patient has a history of alcoholism but has not drank in the past 5 days. Patient was previously seen in the emergency department 2 days ago. Patient states he has been vomiting multiple times a day and has not been able to keep down solids or liquids. Patient states he was admitted the last time this happened. On exam patient has left lower quadrant tenderness. White count is 12.2 which is decreased from 2 days ago from 15.5. CMP unremarkable. Serum alcohol less than 10. Amylase and lipase are within normal limits. Magnesium 2.1 Negative computed tomography scan of the abdomen and pelvis. No intestinal wall thickening. No free fluid in the pelvis. There is a stable 4 mm triangular shaped benign density at the left lateral lung base. Patient was given Zofran in the emergency department but continued to vomit. Patient was also given Reglan. Patient states he does not feel any better. As patient is not keeping down solids or liquids and has been admitted for alcoholic gastritis in the past , he will be admitted for intractable nausea and vomiting. (Eric Dos Santos) - Lab Data Lab Results 05/19/18 05/19/18 Range/Units 18:46 18:46 WBC 12.2 H (3.8-10.6) k/uL RBC 4.59 (4.30-5.90) m/uL Hgb 14.7 (13.0-17.5) gm/dL Hct 43.4 (39.0-53.0) % MCV 94.7 (80.0-100.0) fL MCH 32.1 (25.0-35.0) pg MCHC 33.9 (31.0-37.0) g/dL RDW 13.4 (11.5-15.5) % Plt Count 152 (150-450) k/uL Neutrophils % 80 % Lymphocytes % 11 % Monocytes % 7 % Eosinophils % 0 % Basophils % 0 % Neutrophils # 9.8 H (1.3-7.7) k/uL Lymphocytes # 1.4 (1.0-4.8) k/uL Monocytes # 0.9 (0-1.0) k/uL Eosinophils # 0.0 (0-0.7) k/uL Basophils # 0.0 (0-0.2) k/uL Sodium 140 (137-145) mmol/L Potassium 3.8 (3.5-5.1) mmol/L Chloride 105 (98-107) mmol/L Carbon Dioxide 24 (22-30) mmol/L Anion Gap 11 mmol/L BUN 15 (9-20) mg/dL Creatinine 0.80 (0.66-1.25) mg/dL Est GFR (CKD-EPI)AfAm >90 (>60 ml/min/1.73 sqM) Est GFR (CKD-EPI)NonAf >90 (>60 ml/min/1.73 sqM) Glucose 98 (74-99) mg/dL Calcium 9.9 (8.4-10.2) mg/dL Magnesium 2.1 (1.6-2.3) mg/dL Total Bilirubin 1.2 (0.2-1.3) mg/dL AST 39 (17-59) U/L ALT 49 (21-72) U/L Alkaline Phosphatase 52 (38-126) U/L Total Protein 7.5 (6.3-8.2) g/dL Albumin 4.8 (3.5-5.0) g/dL Amylase 31 (30-110) U/L Lipase 54 (23-300) U/L Serum Alcohol <10 mg/dL Disposition Is patient prescribed a controlled substance at d/c from ED?: No Time of Disposition: 20:00 <Eric Dos Santos - Last Filed: 05/19/18 20:04> <Zhen Roy - Last Filed: 05/19/18 20:17> Clinical Impression: Intractable nausea and vomiting Disposition: ADMITTED IP TO THIS [facility] Condition: Good Referrals: Raul Bowen MD [Primary Care Provider] - 1-2 days
[2018-05-19 19:00] LABS: ALT 49 U/L (21-72); AST 39 U/L (17-59); Albumin 4.8 g/dL (3.5-5.0); Alcohol <10 mg/dL; Alkaline Phosphatase 52 U/L (38-126); Amylase 31 U/L (30-110); Anion Gap 11 mmol/L; Blood Urea Nitrogen 15 mg/dL (9-20); Calcium 9.9 mg/dL (8.4-10.2); Carbon Dioxide 24 mmol/L (22-30); Chloride 105 mmol/L (98-107); Glucose 98 mg/dL (74-99); Lipase 54 U/L (23-300); Magnesium 2.1 mg/dL (1.6-2.3); Potassium 3.8 mmol/L (3.5-5.1); Sodium 140 mmol/L (137-145); Total Bilirubin 1.2 mg/dL (0.2-1.3); Total Protein 7.5 g/dL (6.3-8.2)
[2018-05-19 19:01] LABS: Basophils % (A) 0 %; Eosinophils % (A) 0 %; HCT 43.4 % (39.0-53.0); HGB 14.7 gm/dL (13.0-17.5); Lymphocytes # (A) 1.4 k/uL (1.0-4.8); Lymphocytes % (A) 11 %; MCH 32.1 pg (25.0-35.0); MCHC 33.9 g/dL (31.0-37.0); MCV 94.7 fL (80.0-100.0); Mean Platelet Volume 9.1; Monocytes # (A) 0.9 k/uL (0-1.0); Monocytes % (A) 7 %; Neutrophils # (A) 9.8 k/uL (1.3-7.7); Neutrophils % (A) 80 %; Platelet Count 152 k/uL (150-450); RBC 4.59 m/uL (4.30-5.90); RDW 13.4 % (11.5-15.5); WBC 12.2 k/uL (3.8-10.6)
--- NOTE | 2018-05-19 19:22 | CT ---
EXAMINATION TYPE: CT abdomen pelvis w con DATE OF EXAM: 05/19/2018 COMPARISON: 03/26/2018 HISTORY: Generalized pain with nausea. CT DLP: 367.4 mGycm Automated exposure control for dose reduction was used. TECHNIQUE: Helical acquisition of images was performed from the lung bases through the pelvis. CONTRAST: Performed without Oral Contrast and with IV Contrast, patient injected with 100 mL of Isovue 300. FINDINGS: Lung bases are clear. There is no pleural effusion. Heart size is normal. Liver spleen pancreas gallb ladder appear normal. Bile ducts are not dilated. There is no adrenal mass. Kidneys show satisfactory contrast opacification. There is no hydronephrosis. Bladder distends smoothly. There is no free flui d in the pelvis. There is no intestinal wall thickening. There are no dilated loops. There is no retr operitoneal adenopathy. The bony structures are intact. IMPRESSION: NEGATIVE CT SCAN OF THE ABDOMEN AND PELVIS. STABLE 4 MM TRIANGULAR-SHAPED BENIGN DENSITY AT THE LEFT LATERAL LUNG BASE.
[2018-05-19] MEDS ORDERED: METOCLOPRAMIDE 5 MG/ML 2 ML VIAL IVP STA ×2 (19:32→20:08)
[2018-05-19] MEDS ORDERED: NALOXONE 0.4 MG/ML 1 ML VIAL IV PRN (20:07)
[2018-05-19] MEDS: SODIUM CHLORIDE 0.9% 1,000 ML IV SCH (20:39)
[2018-05-19] MEDS: METOCLOPRAMIDE 5 MG/ML 2 ML VIAL IVP SCH (21:15)
[2018-05-19 21:17] LABS: Appearance,Urine Clear (Clear); Bacteria,Urine Rare /hpf; Bilirubin,Urine Negative (Negative); Blood,Urine Negative (Negative); Color,Urine Yellow; Glucose,Urine (UA) Negative (Negative); Ketones,Urine Trace (Negative); Leukocyte Esterase,Urine Negative (Negative); Nitrite,Urine Negative (Negative); PH, Urine 8.5 (5.0-8.0); Protein,Urine 1+ (Negative); RBC,Urine 3 /hpf (0-5); Specific Gravity,Urine 1.034 (1.001-1.035); Urobilinogen,Urine <2.0 mg/dL (<2.0); WBC,Urine <1 /hpf (0-5)
[2018-05-19] MEDS: ONDANSETRON 4 MG/2 ML VIAL IVP PRN (23:09)
[2018-05-20] MEDS: METOCLOPRAMIDE 5 MG/ML 2 ML VIAL IVP SCH ×4 (03:14→22:02)
[2018-05-20] MEDS: SODIUM CHLORIDE 0.9% 1,000 ML IV SCH (09:05)
[2018-05-20] MEDS: ONDANSETRON 4 MG/2 ML VIAL IVP PRN (12:03)
[2018-05-20] MEDS: FAMOTIDINE 20 MG/2 ML VIAL IV SCH ×2 (14:56→22:02)
[2018-05-20] MEDS: HEPARIN SODIUM,PORCINE 5,000 UNIT/ML 1 ML VIAL SQ SCH (14:58)
[2018-05-20 15:32] VITALS: BMI 19.9
[2018-05-20 18:53] LABS: Basophils % (A) 0 %; Eosinophils % (A) 0 %; HCT 42.9 % (39.0-53.0); HGB 14.1 gm/dL (13.0-17.5); Lymphocytes # (A) 1.7 k/uL (1.0-4.8); Lymphocytes % (A) 16 %; MCHC 32.8 g/dL (31.0-37.0); MCV 97.4 fL (80.0-100.0); Mean Platelet Volume 9.8; Monocytes # (A) 0.7 k/uL (0-1.0); Monocytes % (A) 7 %; Neutrophils # (A) 7.8 k/uL (1.3-7.7); Neutrophils % (A) 75 %; Platelet Count 135 k/uL (150-450); RDW 13.5 % (11.5-15.5); WBC 10.5 k/uL (3.8-10.6)
[2018-05-20] MEDS ORDERED: ACETAMINOPHEN TAB 325 MG TAB PO PRN (18:58)
[2018-05-21] MEDS: SODIUM CHLORIDE 0.9% 1,000 ML IV SCH ×2 (00:13→09:20)
[2018-05-21] MEDS: HEPARIN SODIUM,PORCINE 5,000 UNIT/ML 1 ML VIAL SQ SCH ×3 (00:14→14:12)
--- NOTE | 2018-05-21 00:59 | P.HPIM ---
History of Present Illness H&P Date: 05/20/18 Chief Complaint: Nausea vomiting 47-year-old male with a known history of alcohol abuse presents to the emergency department for a chief complaint of nausea and vomiting 4 days. 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 The day after that he began to feel nauseous and has felt that way since. Patient states he vomits multiple times a day and is unsure of how many times. Patient denies any diarrhea or bloody stools. Patient admits to lower abdominal pain and cramping. Patient states he has not been able to keep down solids or liquids. Patient states he was admitted for similar symptoms last year and they were able to help his symptoms until he could tolerate solids. Patient states that he drinks daily but has not had any alcoholic beverages since 5 days ago. Patient states he does not feel as if he is withdrawing. Patient has no other complaints at this time including shortness of breath, chest pain, abdominal pain, nausea or vomiting, headache, or visual changes. CT of abdomen pelvis showed no acute process. Stable 4mm triangular-shaped benign density at the left lateral lung base. Review of Systems Constitutional: Patient denies any fever or chills . No generalized weakness or weight loss. Abdomen: Nausea vomiting and lower abdominal pain. Cardiovascular: Patient denies any chest pain or short of breath no palpitations. Respiratory: patient denied any cough is from production. No shortness of breath Neurologic: Patient denied any numbness or tingling headache. Musculoskeletal: Patient denies any complaints of joint swelling or deformity. Skin: Negative Psychiatric: Negative Endocrine: No heat or cold intolerance. No recent weight gain. Genitourinary: No dysuria or hematuria. All other 14 point ROS negative except the above Past Medical History Past Medical History: No Reported History Additional Past Medical History / Comment(s): hernia, alcoholism, History of Any Multi-Drug Resistant Organisms: None Reported Past Surgical History: Appendectomy, Hernia Repair Additional Past Surgical History / Comment(s): Appendix was last year Past Anesthesia/Blood Transfusion Reactions: No Reported Reaction Past Psychological History: No Psychological Hx Reported Smoking Status: Light tobacco smoker Past Alcohol Use History: Abuse, Daily, Heavy Additional Past Alcohol Use History / Comment(s): patient states drinks 3-4 "tall boys" of beer a day last drink being friday Past Drug Use History: None Reported - Past Family History Mother Family Medical History: No Reported History Father Family Medical History: No Reported History Medications and Allergies Home Medications Medication Instructions Recorded Confirmed Type No Known Home Medications 05/19/18 05/19/18 History Allergies Allergy/AdvReac Type Severity Reaction Status Date / Time cyclobenzaprine AdvReac AGITATION Verified 05/19/18 16:58 [From Flexeril] Physical Exam Vitals: Vital Signs Temp Pulse Pulse Resp BP BP Pulse Ox 05/20/18 06:28 98.4 F 51 L 16 139/86 100 05/19/18 23:00 99.6 F 53 L 16 152/86 100 05/19/18 22:08 99.3 F 55 L 16 116/73 98 05/19/18 20:41 100.6 F H 64 18 129/88 98 05/19/18 16:59 98 F 55 L 18 122/73 100 Intake and Output 05/19/18 05/20/18 05/20/18 22:59 06:59 14:59 Intake Total 50 Balance 50 Intake: Oral 50 Other: Voiding Method Toilet # Voids 1 Weight 61.235 kg PHYSICAL EXAMINATION: Patient is lying in the bed comfortably, no acute distress, awake alert and oriented.. HEENT: Normocephalic. Neck is supple. Pupils reactive. Nostrils clear. Oral cavity is moist. Ears reveal no drainage. Neck reveals no JVD, carotid bruits, or thyromegaly. CHEST EXAMINATION: Trachea is central. Symmetrical expansion. Lung castro clear to auscultation and percussion. CARDIAC: Normal S1, S2 with no gallops. No murmurs ABDOMEN: Soft. Bowel sounds normal. No organomegaly. No abdominal bruits. Extremities: reveal no edema. No clubbing or cyanosis Neurologically awake, alert, oriented x3 with well-coordinated movements. No focal deficits noted Skin: No rash or skin lesions. Psychiatric: Coperative. Nonsuicidal Musculoskeletal: No joint swelling or deformity. Normal range of motion. Results CBC & Chem 7: 05/20/18 16:11 05/19/18 18:46 Labs: Abnormal Lab Results - Last 24 Hours (Table) 05/19/18 05/19/18 Range/Units 18:46 20:40 WBC 12.2 H (3.8-10.6) k/uL Neutrophils # 9.8 H (1.3-7.7) k/uL Urine pH 8.5 H (5.0-8.0) Urine Protein 1+ H (Negative) Urine Ketones Trace H (Negative) Urine Bacteria Rare H (None) /hpf Thrombosis Risk Factor Assmnt - DVT/VTE Prophylaxis DVT/VTE Prophylaxis: Pharmacologic Prophylaxis ordered - Choose All That Apply Each Factor Represents 1 point: Age 41-60 years Other Risk Factors: No Other congenital or acquired thrombophilia - If yes, enter type in comment: No Thrombosis Risk Factor Assessment Total Risk Factor Score: 1 Thrombosis Risk Factor Assessment Level: Low Risk Assessment and Plan Assessment: Intractable nausea vomiting and abdominal pain possible alcoholic gastritis Alcohol abuse on daily basis DVT prophylaxis Plan: Patient will be continued on IV hydration and continue with symptomatic management for nausea and vomiting. Continue with Zofran and Zantac IV. Thiamine and multivitamins and follow up closely. Further recommendations based on the clinical course. Time with Patient: Greater than 30
[2018-05-21] MEDS: METOCLOPRAMIDE 5 MG/ML 2 ML VIAL IVP SCH ×3 (03:54→14:11)
[2018-05-21 06:33] VITALS: RESP 18
[2018-05-21] MEDS: FAMOTIDINE 20 MG/2 ML VIAL IV SCH (07:42)
[2018-05-21] MEDS ORDERED: THIAMINE 100 MG TAB PO SCH (12:00)
[2018-05-21] MEDS ORDERED: MULTIVITAMINS, THERA 1 EACH TAB PO SCH (12:00)
[2018-05-21 15:06] VITALS: BP 137/89; PULSE 51; TEMP 98.9
== END 2018-05-21 15:50 | disposition home or self-care (01) | DRG 392 ==
LOC: EC 16:46 → 4MS4W 21:11
PROVIDERS: ADMIT Internal Medicine; ATTEND Internal Medicine
DX: K29.20 Alcoholic gastritis without bleeding (principal); F10.20 Alcohol dependence, uncomplicated; F17.200 Nicotine dependence, unspecified, uncomplicated; Z88.8 Allergy status to other drugs, medicaments and biological substances
CPT/HCPCS: 36415; 74177; 80053; 80320; 81001; 82150; 83690; 83735; 85025; 96361; 96374; 96375; 99285

== ENCOUNTER 2018-05-22 17:03 | Emergency (ER) | payer OTHER ==
[2018-05-22] MEDS ORDERED: SODIUM CHLORIDE 0.9% 2,000 ML IV STA (17:50)
[2018-05-22] MEDS ORDERED: MORPHINE SULFATE 4 MG/ML SYRINGE IV STA (17:50)
[2018-05-22] MEDS ORDERED: ONDANSETRON 4 MG/2 ML VIAL IVP STA (17:50)
[2018-05-22 18:21] LABS: Basophils % (A) 0 %; Eosinophils % (A) 1 %; HCT 44.4 % (39.0-53.0); HGB 14.9 gm/dL (13.0-17.5); Lymphocytes # (A) 1.5 k/uL (1.0-4.8); Lymphocytes % (A) 16 %; MCH 31.9 pg (25.0-35.0); MCHC 33.5 g/dL (31.0-37.0); MCV 95.4 fL (80.0-100.0); Mean Platelet Volume 9.2; Monocytes # (A) 0.7 k/uL (0-1.0); Monocytes % (A) 7 %; Neutrophils # (A) 7.2 k/uL (1.3-7.7); Neutrophils % (A) 75 %; Platelet Count 154 k/uL (150-450); RBC 4.66 m/uL (4.30-5.90); RDW 13.2 % (11.5-15.5); WBC 9.6 k/uL (3.8-10.6)
[2018-05-22 18:37] LABS: ALT 145 U/L (21-72); AST 67 U/L (17-59); Albumin 4.6 g/dL (3.5-5.0); Alcohol <10 mg/dL; Alkaline Phosphatase 54 U/L (38-126); Anion Gap 11 mmol/L; Blood Urea Nitrogen 24 mg/dL (9-20); Calcium 9.9 mg/dL (8.4-10.2); Carbon Dioxide 21 mmol/L (22-30); Chloride 106 mmol/L (98-107); Glucose 89 mg/dL (74-99); Lipase 56 U/L (23-300); Potassium 3.3 mmol/L (3.5-5.1); Sodium 138 mmol/L (137-145); Total Bilirubin 1.5 mg/dL (0.2-1.3); Total Protein 7.2 g/dL (6.3-8.2)
--- NOTE | 2018-05-22 18:53 | ED ---
Abdominal Pain HPI - General Chief Complaint: Abdominal Pain Stated Complaint: NAUSEA, VOMITING Time Seen by Provider: 05/22/18 17:25 Source: patient, EMS Mode of arrival: EMS Limitations: no limitations - History of Present Illness Initial Comments: Patient is a 47-year-old male with a history of alcohol abuse presenting for abdominal pain. Patient states that he has been seen here multiple times including Friday and possibly some there Friday and he was admitted and discharged yesterday. He states that his workup was negative but he started having worsening pain today as well as dizziness and lightheadedness. The pain is in the right lower quadrant and feels a constant pinching sensation. His is associated with 1 episode of nausea and vomiting this morning but no diarrhea. Is also accompanied with chills but no fevers. - Related Data Previous Rx's Medication Instructions Recorded Multivitamins, Thera [Multivitamin 1 each PO DAILY@1200 #30 tab 05/21/18 (formulary)] Thiamine [Vitamin B-1] 100 mg PO DAILY@1200 #30 tab 05/21/18 Dicyclomine [Bentyl] 20 mg PO QID PRN #20 tablet 05/22/18 Ondansetron Odt [Zofran Odt] 4 mg PO Q8HR PRN #15 tab 05/22/18 Allergies Allergy/AdvReac Type Severity Reaction Status Date / Time cyclobenzaprine AdvReac AGITATION Verified 05/22/18 17:13 [From Flexeril] Review of Systems ROS Statement: Those systems with pertinent positive or pertinent negative responses have been documented in the HPI. Constitutional: Positive for chills, negative for fatigue and fever. HENT: Negative for congestion. Respiratory: Negative for chest tightness, shortness of breath and wheezing. Negative for cough Cardiovascular: Negative for chest pain and palpitations. Gastrointestinal: Positive for abdominal pain. Negative for abdominal distention and diarrhea, , positive fornausea and vomiting. Genitourinary: Negative for dysuria. Musculoskeletal: Negative for back pain, neck pain and neck stiffness. Skin: Negative for color change. Neurological: Positive for dizziness and lightheadedness, speech difficulty, weakness. Psychiatric/Behavioral: Negative for agitation and confusion. Negative for anxiety ROS Other: All systems not noted in ROS Statement are negative. Past Medical History Past Medical History: No Reported History Additional Past Medical History / Comment(s): hernia, alcoholism, History of Any Multi-Drug Resistant Organisms: None Reported Past Surgical History: Appendectomy, Hernia Repair Additional Past Surgical History / Comment(s): Appendix was last year Past Anesthesia/Blood Transfusion Reactions: No Reported Reaction Past Psychological History: No Psychological Hx Reported Smoking Status: Current every day smoker Past Alcohol Use History: Abuse, Daily, Heavy Past Drug Use History: None Reported - Past Family History Mother Family Medical History: No Reported History Father Family Medical History: No Reported History General Exam - General Exam Comments Initial Comments: Constitutional: Pt is oriented to person, place, and time. Pt appears well- developed and well-nourished. No distress. HENT: Head: Normocephalic and atraumatic. Eyes: EOM are normal. Neck: Normal range of motion. Neck supple. Cardiovascular: Normal rate, regular rhythm, S1 normal, S2 normal and normal heart sounds. Exam reveals no gallop and no friction rub. No murmur heard. Pulmonary/Chest: Effort normal and breath sounds normal. No tachypnea and no bradypnea. No respiratory distress. No wheezes or rales noted. Abdominal: Soft. Bowel sounds are normal. Pt exhibits no shifting dullness, no distension, no pulsatile liver, no fluid wave, no abdominal bruit and no ascites. There is no tenderness. There is no rigidity, no rebound, , no tenderness at McBurney's point and negative Thomas's sign, voluntary guarding present Musculoskeletal: Normal range of motion. Neurological: Pt is alert and oriented to person, place, and time. No cranial nerve deficit. Skin: Skin is warm and dry. No rash noted. Pt is not diaphoretic. No erythema. No pallor. Psychiatric: Pt has a normal mood and affect. Pt behavior is normal. Thought content normal. Limitations: no limitations Course Vital Signs 05/22/18 05/22/18 05/22/18 17:07 19:52 22:28 Temperature 98.0 F 98.3 F Pulse Rate 57 L 68 58 L Respiratory 18 18 16 Rate Blood Pressure 123/84 98/65 103/75 O2 Sat by Pulse 100 100 100 Oximetry Medical Decision Making - Medical Decision Making Laboratory studies show that there is no significant leukocytosis and electrolytes are relatively within normal limits. There is also no evidence of acute kidney injury and liver enzymes show that there was some mild transaminitis with ALC measuring 145 and AST 67. Total bilirubin was also mildly elevated at 1.5. However, there is no lactic acid and patient's vital signs were within normal limits. Because of this ultrasound was performed and showed no evidence of cholecystitis or cholelithiasis but did show sludge. Patient was given multiple analgesics and stated that the pain was significantly improved. The etiology of the symptoms are unclear but based on these findings, it was felt that there was no indication for inpatient treatment. Patient states that he does have good out patient follow up with PCP and he He would be able to get to see them on Friday.. Additionally, advance imaging such as CT was not performed because this it and performed within the last 3 days and showed no evidence of acute pathology. Patient was given a prescription for Bentyl as well and was agreeable to plan. - Lab Data Result diagrams: 05/22/18 17:49 05/22/18 17:49 Lab Results 05/22/18 05/22/18 05/22/18 Range/Units 17:49 17:49 17:49 WBC 9.6 (3.8-10.6) k/uL RBC 4.66 (4.30-5.90) m/uL Hgb 14.9 (13.0-17.5) gm/dL Hct 44.4 (39.0-53.0) % MCV 95.4 (80.0-100.0) fL MCH 31.9 (25.0-35.0) pg MCHC 33.5 (31.0-37.0) g/dL RDW 13.2 (11.5-15.5) % Plt Count 154 (150-450) k/uL Neutrophils % 75 % Lymphocytes % 16 % Monocytes % 7 % Eosinophils % 1 % Basophils % 0 % Neutrophils # 7.2 (1.3-7.7) k/uL Lymphocytes # 1.5 (1.0-4.8) k/uL Monocytes # 0.7 (0-1.0) k/uL Eosinophils # 0.0 (0-0.7) k/uL Basophils # 0.0 (0-0.2) k/uL Sodium 138 (137-145) mmol/L Potassium 3.3 L (3.5-5.1) mmol/L Chloride 106 (98-107) mmol/L Carbon Dioxide 21 L (22-30) mmol/L Anion Gap 11 mmol/L BUN 24 H (9-20) mg/dL Creatinine 1.00 (0.66-1.25) mg/dL Est GFR (CKD-EPI)AfAm >90 (>60 ml/min/1.73 sqM) Est GFR (CKD-EPI)NonAf 90 (>60 ml/min/1.73 sqM) Glucose 89 (74-99) mg/dL Plasma Lactic Acid Gordon 1.1 (0.7-2.0) mmol/L Calcium 9.9 (8.4-10.2) mg/dL Total Bilirubin 1.5 H (0.2-1.3) mg/dL AST 67 H (17-59) U/L ALT 145 H (21-72) U/L Alkaline Phosphatase 54 (38-126) U/L Troponin I (0.000-0.034) ng/mL Total Protein 7.2 (6.3-8.2) g/dL Albumin 4.6 (3.5-5.0) g/dL Lipase 56 (23-300) U/L Serum Alcohol <10 mg/dL 05/22/18 Range/Units 17:49 WBC (3.8-10.6) k/uL RBC (4.30-5.90) m/uL Hgb (13.0-17.5) gm/dL Hct (39.0-53.0) % MCV (80.0-100.0) fL MCH (25.0-35.0) pg MCHC (31.0-37.0) g/dL RDW (11.5-15.5) % Plt Count (150-450) k/uL Neutrophils % % Lymphocytes % % Monocytes % % Eosinophils % % Basophils % % Neutrophils # (1.3-7.7) k/uL Lymphocytes # (1.0-4.8) k/uL Monocytes # (0-1.0) k/uL Eosinophils # (0-0.7) k/uL Basophils # (0-0.2) k/uL Sodium (137-145) mmol/L Potassium (3.5-5.1) mmol/L Chloride (98-107) mmol/L Carbon Dioxide (22-30) mmol/L Anion Gap mmol/L BUN (9-20) mg/dL Creatinine (0.66-1.25) mg/dL Est GFR (CKD-EPI)AfAm (>60 ml/min/1.73 sqM) Est GFR (CKD-EPI)NonAf (>60 ml/min/1.73 sqM) Glucose (74-99) mg/dL Plasma Lactic Acid Gordon (0.7-2.0) mmol/L Calcium (8.4-10.2) mg/dL Total Bilirubin (0.2-1.3) mg/dL AST (17-59) U/L ALT (21-72) U/L Alkaline Phosphatase (38-126) U/L Troponin I <0.012 (0.000-0.034) ng/mL Total Protein (6.3-8.2) g/dL Albumin (3.5-5.0) g/dL Lipase (23-300) U/L Serum Alcohol mg/dL - EKG Data EKG Comments: EKG shows sinus bradycardia with a rate of 49 bpm, MD interval 122, QRS 72, QTC 417. There are nonspecific T-wave inversions in leads V4, V5, V6 no significant ST depressions or elevations. Disposition Clinical Impression: Abdominal pain, Transaminitis Disposition: HOME SELF-CARE Condition: Good Instructions: Abdominal Pain (ED) Prescriptions: Dicyclomine [Bentyl] 20 mg PO QID PRN #20 tablet PRN Reason: Pain Ondansetron Odt [Zofran Odt] 4 mg PO Q8HR PRN #15 tab PRN Reason: Nausea And Vomiting Is patient prescribed a controlled substance at d/c from ED?: No Referrals: Raul Bowen MD [Primary Care Provider] - 1-2 days Time of Disposition: 22:10
--- NOTE | 2018-05-22 19:12 | XR ---
EXAMINATION TYPE: XR abdomen acute w cxr DATE OF EXAM: 05/22/2018 COMPARISON: 05/17/2018 HISTORY: Nausea and vomiting TECHNIQUE: Chest x-ray with supine and upright abdomen FINDINGS: Heart and mediastinum are normal. Lungs are clear. Diaphragm is normal. Bony thorax is normal. There is mild thoracic dextroscoliosis. Bowel gas pattern is normal. There is no sign of intestinal obstruction or pneumoperitoneum. There ar e phleboliths in the pelvis. There are no pathologic calcifications over the kidneys. IMPRESSION: No active cardiopulmonary disease. Nonacute abdomen. Abdomen is unchanged.
--- NOTE | 2018-05-22 20:08 | US ---
EXAMINATION TYPE: US abdomen complete DATE OF EXAM: 05/22/2018 COMPARISON: CT 05/19/2018, US 03/26/2018 CLINICAL HISTORY: Abd Pain. Nausea/vomiting EXAM MEASUREMENTS: Liver Length: 12.6 cm Gallbladder Wall: 0.2 cm CBD: 0.4 cm Spleen: 6.6 cm Right Kidney: 9.1 x 3.4 x 5.0 cm Left Kidney: 10.3 x 5.1 x 5.4 cm Pancreas: Obscured by bowel gas, visualized portions appear wnl. Duct visualized measuring 0.2 cm Liver: wnl Gallbladder: Sludge visualized Evidence for sonographic Thomas's sign: No CBD: wnl Spleen: wnl as visualized, difficult visualization due to patient body habitus Right Kidney: No hydronephrosis or masses seen Left Kidney: No hydronephrosis or masses seen Upper IVC: wnl Abd Aorta: wnl IMPRESSION: No gallstones or dilated ducts. Echogenic bile. No adverse change compared to old exam.
[2018-05-22] MEDS ORDERED: DICYCLOMINE 10 MG/ML 2 ML AMP IM STA (20:35)
[2018-05-22 22:30] VITALS: BP 103/75; PULSE 58; RESP 16; TEMP 98.3
== END 2018-05-22 22:29 | disposition home or self-care (01) ==
LOC: EC 17:03
DX: R74.0 Nonspecific elevation of levels of transaminase and lactic acid dehydrogenase [LDH] (principal); R10.31 Right lower quadrant pain; R00.1 Bradycardia, unspecified; R79.89 Other specified abnormal findings of blood chemistry; R93.8 Abnormal findings on diagnostic imaging of other specified body structures; R42 Dizziness and giddiness; R11.2 Nausea with vomiting, unspecified; R68.83 Chills (without fever); F17.200 Nicotine dependence, unspecified, uncomplicated; Z88.8 Allergy status to other drugs, medicaments and biological substances; Z90.49 Acquired absence of other specified parts of digestive tract
CPT/HCPCS: 36415; 93005; 80053; 83605; 83690; 84484; 85025; 80320; 74022; 76700; 99285; 96374; 96375; 96361 ×4; 96372; J2270; J0500; J2405

== ENCOUNTER 2018-07-12 19:02 | Emergency (ER) | payer OTHER ==
[2018-07-12 19:06] VITALS: RESP 18
[2018-07-12] MEDS ORDERED: METOCLOPRAMIDE 5 MG/ML 2 ML VIAL IVP STA (19:16)
[2018-07-12] MEDS ORDERED: SODIUM CHLORIDE 0.9% 1,000 ML IV STA (19:16)
[2018-07-12] MEDS ORDERED: DICYCLOMINE 10 MG/ML 2 ML AMP IM STA (19:20)
[2018-07-12] MEDS ORDERED: FAMOTIDINE 20 MG/2 ML VIAL IV STA (19:20)
--- NOTE | 2018-07-12 19:22 | ED ---
General Adult HPI - General Source: patient, EMS, RN notes reviewed Mode of arrival: EMS Limitations: no limitations <Ajit Mendoza - Last Filed: 07/12/18 20:50> <Ji Neville - Last Filed: 07/12/18 23:19> - General Chief complaint: Nausea/Vomiting/Diarrhea Stated complaint: Vomiting/Nausea Time Seen by Provider: 07/12/18 19:13 - History of Present Illness Initial comments: Patient is a pleasant 47-year-old male presenting to the emergency Department with complaints of nausea vomiting and abdominal discomfort. Onset of symptoms was 2 days ago. Patient did have similar symptoms previously that he was told was associated with alcohol. Patient states he did drink alcohol on Friday however was not a lot of alcohol. Patient states there may have been an episode or 2 of loose stools. No fevers. Discomfort is in the epigastric region. (Ajit Mendoza) - Related Data Previous Rx's Medication Instructions Recorded Ondansetron Odt [Zofran Odt] 4 mg PO Q8HR PRN #15 tab 05/22/18 Pantoprazole Sodium [Protonix] 40 mg PO DAILY #30 tablet. 07/12/18 Allergies Allergy/AdvReac Type Severity Reaction Status Date / Time cyclobenzaprine AdvReac AGITATION Verified 07/12/18 19:07 [[facility] Review of Systems ROS Other: All systems not noted in ROS Statement are negative. Constitutional: Denies: fever Eyes: Denies: eye pain ENT: Denies: ear pain Respiratory: Denies: cough Cardiovascular: Denies: chest pain Endocrine: Denies: fatigue Gastrointestinal: Reports: abdominal pain, nausea, vomiting Genitourinary: Denies: dysuria Musculoskeletal: Denies: back pain Skin: Denies: rash Neurological: Denies: weakness <Ajit Mendoza - Last Filed: 07/12/18 20:50> ROS Other: All systems not noted in ROS Statement are negative. <Ji Neville - Last Filed: 07/12/18 23:19> ROS Statement: Those systems with pertinent positive or pertinent negative responses have been documented in the HPI. Past Medical History Past Medical History: No Reported History Additional Past Medical History / Comment(s): hernia, alcoholism, History of Any Multi-Drug Resistant Organisms: None Reported Past Surgical History: Appendectomy, Hernia Repair Additional Past Surgical History / Comment(s): Appendix was last year Past Anesthesia/Blood Transfusion Reactions: No Reported Reaction Past Psychological History: No Psychological Hx Reported Smoking Status: Current every day smoker Past Alcohol Use History: Abuse, Daily, Heavy Past Drug Use History: None Reported - Past Family History Mother Family Medical History: No Reported History Father Family Medical History: No Reported History <Ajit Mendoza - Last Filed: 07/12/18 20:50> General Exam Limitations: no limitations General appearance: alert, in no apparent distress Head exam: Present: atraumatic Eye exam: Present: normal appearance, PERRL ENT exam: Present: normal oropharynx Neck exam: Present: normal inspection Respiratory exam: Present: normal lung sounds bilaterally Cardiovascular Exam: Present: regular rate, normal rhythm Expanded Peripheral pulses: 2+: Dorsalis Pedis (R), Dorsalis Pedis (L) GI/Abdominal exam: Present: soft, tenderness (Mild to moderate tenderness mostly in the epigastric region), normal bowel sounds. Absent: distended, guarding, rebound, rigid, pulsatile mass Extremities exam: Present: normal inspection. Absent: pedal edema, calf tenderness Neurological exam: Present: alert Psychiatric exam: Present: normal affect, normal mood Skin exam: Present: normal color <Ajit Mendoza - Last Filed: 07/12/18 20:50> Course <Ajit Mendoza - Last Filed: 07/12/18 20:50> <Ji Neville - Last Filed: 07/12/18 23:19> Vital Signs 07/12/18 07/12/18 19:04 22:01 Temperature 98.5 F Pulse Rate 71 65 Respiratory 18 18 Rate Blood Pressure 117/85 130/80 O2 Sat by Pulse 97 98 Oximetry - Reevaluation(s) Reevaluation #1: 07/12/18 20:51 Patient reevaluated and updated. (Ajit Mendoza) Medical Decision Making - Lab Data Result diagrams: 07/12/18 19:31 07/12/18 19:31 - Radiology Data Radiology results: report reviewed (Computed tomography scan of the abdomen pelvis reveals no acute process.) <Ajit Mendoza - Last Filed: 07/12/18 20:50> - Lab Data Result diagrams: 07/12/18 19:31 07/12/18 19:31 <Ji Neville - Last Filed: 07/12/18 23:19> - Medical Decision Making Patient was sent out to me by previous shift physician. Briefly, patient is a 47-year-old male presents with chief complaint of epigastric abdominal pain nausea and vomiting. Patient states he's been having coffee-ground emesis. Denies any dark stools. Patient has history of this in the past several months ago where he received a CT and ultrasound. Patient has not follow-up with gastroenterology for upper endoscopy however he states that he was diagnosed with peptic ulcer. Patient received labs and CT imaging without any acute findings. Previous physician administered GI medications. Insertion of cyanosis of follow-up with patient. [id number] bedside ultrasound was performed showing no gallbladder stones or pericholecystic fluid. Patient did not have any sonographic Thomas sign. At this point there is low clinical suspicion of acute cholecystitis in light of nausea, vomiting in light of leukocytosis with epigastric abdominal pain. Clinical presentation more consistent with bleeding peptic ulcer versus gastritis. Patient given GI cocktail. he did be discharge with outpatient follow-up to primary care physician and gastroenterology. Patient is understandable agreeable to this plan. (Ji Neville) - Lab Data Lab Results 07/12/18 07/12/18 Range/Units 19:31 19:31 WBC 15.9 H (3.8-10.6) k/uL RBC 4.42 (4.30-5.90) m/uL Hgb 14.6 (13.0-17.5) gm/dL Hct 41.8 (39.0-53.0) % MCV 94.7 (80.0-100.0) fL MCH 33.1 (25.0-35.0) pg MCHC 35.0 (31.0-37.0) g/dL RDW 13.2 (11.5-15.5) % Plt Count 183 (150-450) k/uL Neutrophils % 86 % Lymphocytes % 6 % Monocytes % 5 % Eosinophils % 1 % Basophils % 0 % Neutrophils # 13.8 H (1.3-7.7) k/uL Lymphocytes # 1.0 (1.0-4.8) k/uL Monocytes # 0.9 (0-1.0) k/uL Eosinophils # 0.2 (0-0.7) k/uL Basophils # 0.0 (0-0.2) k/uL Sodium 139 (137-145) mmol/L Potassium 3.9 (3.5-5.1) mmol/L Chloride 101 (98-107) mmol/L Carbon Dioxide 25 (22-30) mmol/L Anion Gap 13 mmol/L BUN 24 H (9-20) mg/dL Creatinine 0.80 (0.66-1.25) mg/dL Est GFR (CKD-EPI)AfAm >90 (>60 ml/min/1.73 sqM) Est GFR (CKD-EPI)NonAf >90 (>60 ml/min/1.73 sqM) Glucose 113 H (74-99) mg/dL Calcium 9.7 (8.4-10.2) mg/dL Total Bilirubin 1.0 (0.2-1.3) mg/dL AST 27 (17-59) U/L ALT 28 (21-72) U/L Alkaline Phosphatase 50 (38-126) U/L Total Protein 7.5 (6.3-8.2) g/dL Albumin 4.6 (3.5-5.0) g/dL Amylase 41 (30-110) U/L Lipase 29 (23-300) U/L Disposition Is patient prescribed a controlled substance at d/c from ED?: No <Ajit Mendoza - Last Filed: 07/12/18 20:50> Is patient prescribed a controlled substance at d/c from ED?: No Time of Disposition: 23:19 <Ji Neville - Last Filed: 07/12/18 23:19> Clinical Impression: Abdominal pain, Acute vomiting Disposition: HOME SELF-CARE Condition: Stable Instructions: Acute Nausea and Vomiting (ED), Abdominal Pain (ED) Additional Instructions: Please follow-up with primary care physician in the next day or 2 for recheck. Also follow-up with [facility] neurologist or surgeon for scope. Return for increased pain, uncontrolled vomiting, worsening symptoms or other concerns. Prescriptions: Pantoprazole Sodium [Protonix] 40 mg PO DAILY #30 tablet.dr Referrals: Raul Bowen MD [Primary Care Provider] - 1-2 days Nawaf Briones MD [STAFF PHYSICIAN] - 1-2 days
[2018-07-12 19:42] LABS: Basophils % (A) 0 %; Eosinophils # (A) 0.2 k/uL (0-0.7); Eosinophils % (A) 1 %; HCT 41.8 % (39.0-53.0); HGB 14.6 gm/dL (13.0-17.5); Lymphocytes % (A) 6 %; MCH 33.1 pg (25.0-35.0); MCV 94.7 fL (80.0-100.0); Mean Platelet Volume 8.4; Monocytes # (A) 0.9 k/uL (0-1.0); Monocytes % (A) 5 %; Neutrophils # (A) 13.8 k/uL (1.3-7.7); Neutrophils % (A) 86 %; Platelet Count 183 k/uL (150-450); RBC 4.42 m/uL (4.30-5.90); RDW 13.2 % (11.5-15.5); WBC 15.9 k/uL (3.8-10.6)
[2018-07-12 19:52] LABS: ALT 28 U/L (21-72); AST 27 U/L (17-59); Albumin 4.6 g/dL (3.5-5.0); Alkaline Phosphatase 50 U/L (38-126); Amylase 41 U/L (30-110); Anion Gap 13 mmol/L; Blood Urea Nitrogen 24 mg/dL (9-20); Calcium 9.7 mg/dL (8.4-10.2); Carbon Dioxide 25 mmol/L (22-30); Chloride 101 mmol/L (98-107); Glucose 113 mg/dL (74-99); Lipase 29 U/L (23-300); Sodium 139 mmol/L (137-145); Total Protein 7.5 g/dL (6.3-8.2)
[2018-07-12 20:01] LABS: Potassium 3.9 mmol/L (3.5-5.1)
--- NOTE | 2018-07-12 20:35 | CT ---
EXAMINATION TYPE: CT abdomen pelvis w con DATE OF EXAM: 07/12/2018 COMPARISON: 05/19/2018 HISTORY: Generalized abdominal pain with nausea and vomiting x [address] DLP: 413.6 mGycm Automated exposure control for dose reduction was used. TECHNIQUE: Helical acquisition of images was performed from the lung bases through the pelvis. CONTRAST: Performed without Oral Contrast and with IV Contrast, patient injected with 100 mL of Isovue 300. FINDINGS: Lung bases are clear of infiltrate. There is no pleural effusion. Heart size is normal. Liver spleen pancreas gallbladder appear normal. Bile ducts are not dilated. There is transient are shaped 4 mm de nsity lateral left lung base. There is 3 mm subpleural density lateral left lower lobe. These are of doubtful significance and appear unchanged. Stomach appears normal. There is no adrenal mass. Kidneys show satisfactory contrast opacification. T here is no hydronephrosis. There is no retroperitoneal adenopathy. There is no mesenteric adenopathy or edema. Bladder distends smoothly. I see no pelvic mass. There is no inguinal hernia or adenopathy. I see no intestinal wall thickening. There are no dilated loops. There is no evidence of a thickened appendix. Appendix is not definitely seen. There is no sign of ascites or free air. I see no bony destructive process. The abdominal soft tissues are unremarkable. IMPRESSION: NEGATIVE CT SCAN OF THE ABDOMEN AND PELVIS. NO ADVERSE CHANGE COMPARED TO OLD EXAM.
[2018-07-12] MEDS ORDERED: MAG HYDROX/AL HYDROX/SIMETH 30 ML, HYOSCYAMINE ELIXIR 10 ML, CIMETIDINE HCL 300 MG, LID... PO STA ×4 (21:45)
[2018-07-12 23:02] VITALS: BP 149/89; PULSE 57; TEMP 98.6
== END 2018-07-12 22:55 | disposition home or self-care (01) ==
LOC: EC 19:02
DX: R10.13 Epigastric pain (principal); R11.2 Nausea with vomiting, unspecified; R19.7 Diarrhea, unspecified; D72.829 Elevated white blood cell count, unspecified; F17.200 Nicotine dependence, unspecified, uncomplicated; Z90.49 Acquired absence of other specified parts of digestive tract; Z88.8 Allergy status to other drugs, medicaments and biological substances
CPT/HCPCS: 99285; 96374; 96375; 96361; 96372; 36415; 80053; 82150; 83690; 85025; 74177; J0500; J2765; Q9967

== ENCOUNTER 2018-07-13 10:41 | Observation (INO) | payer OTHER ==
[2018-07-13] MEDS ORDERED: MORPHINE SULFATE 4 MG/ML SYRINGE IV STA (11:18)
[2018-07-13] MEDS ORDERED: SODIUM CHLORIDE 0.9% 1,000 ML IV STA (11:18)
[2018-07-13] MEDS ORDERED: METOCLOPRAMIDE 5 MG/ML 2 ML VIAL IVP STA (11:18)
[2018-07-13] MEDS ORDERED: FAMOTIDINE 20 MG/2 ML VIAL IV STA (11:19)
--- NOTE | 2018-07-13 11:21 | ED ---
General Adult HPI - General Chief complaint: Abdominal Pain Stated complaint: Nausea/Vomiting Time Seen by Provider: 07/13/18 11:14 Source: patient, RN notes reviewed Mode of arrival: ambulatory Limitations: no limitations - History of Present Illness Initial comments: Patient is a pleasant 47-year-old male presenting to the emergency department with nausea vomiting and epigastric discomfort. Patient was in the emergency department yesterday. Patient felt fine when he left in symptoms returned around 2:30 AM. Patient having similar symptoms again since that time. Patient states emesis is clear. No bloody emesis. No coffee ground emesis. No diarrhea recently. Discomfort is in the epigastric region. No fevers. - Related Data Previous Rx's Medication Instructions Recorded Ondansetron Odt [Zofran Odt] 4 mg PO Q8HR PRN #15 tab 05/22/18 Pantoprazole Sodium [Protonix] 40 mg PO DAILY #30 tablet. 07/12/18 Allergies Allergy/AdvReac Type Severity Reaction Status Date / Time cyclobenzaprine AdvReac AGITATION Verified 07/13/18 11:47 [From Flexeril] Review of Systems ROS Statement: Those systems with pertinent positive or pertinent negative responses have been documented in the HPI. ROS Other: All systems not noted in ROS Statement are negative. Constitutional: Denies: fever Eyes: Denies: eye pain ENT: Denies: ear pain Respiratory: Denies: cough Cardiovascular: Denies: chest pain Endocrine: Denies: fatigue Gastrointestinal: Reports: abdominal pain, nausea, vomiting Genitourinary: Denies: dysuria Musculoskeletal: Denies: back pain Skin: Denies: rash Neurological: Denies: weakness Past Medical History Past Medical History: No Reported History Additional Past Medical History / Comment(s): hernia, alcoholism, History of Any Multi-Drug Resistant Organisms: None Reported Past Surgical History: Appendectomy, Hernia Repair Additional Past Surgical History / Comment(s): Appendix was last year Past Anesthesia/Blood Transfusion Reactions: No Reported Reaction Past Psychological History: No Psychological Hx Reported Smoking Status: Current every day smoker Past Alcohol Use History: Abuse, Daily, Heavy Past Drug Use History: None Reported - Past Family History Mother Family Medical History: No Reported History Father Family Medical History: No Reported History General Exam Limitations: no limitations General appearance: alert, in no apparent distress Head exam: Present: atraumatic Eye exam: Present: normal appearance Neck exam: Present: normal inspection Respiratory exam: Present: normal lung sounds bilaterally Cardiovascular Exam: Present: regular rate, normal rhythm Expanded Peripheral pulses: 2+: Posterior Tibialis (R), Posterior Tibialis (L) GI/Abdominal exam: Present: soft, tenderness (Moderate tenderness in the epigastric region), normal bowel sounds. Absent: distended, guarding, rebound, rigid, pulsatile mass Extremities exam: Present: normal inspection. Absent: pedal edema, calf tenderness Neurological exam: Present: alert Psychiatric exam: Present: normal affect, normal mood Skin exam: Present: normal color Course Vital Signs 07/13/18 10:46 Temperature 98.2 F Pulse Rate 68 Respiratory 18 Rate Blood Pressure 129/85 EKG Findings - EKG Comments: EKG Findings:: Sinus bradycardia 54. PVCs present. MT 156. QRS 84. QT 462. QTC 438. Normal axis. Septal Q waves. No acute ST change. Medical Decision Making - Medical Decision Making Patient reevaluated and still having epigastric discomfort. Patient does not feel comfortable with discharge home. Dr. li has been paged, covering for Dr. Bowen. - Lab Data Result diagrams: 07/13/18 11:04 07/13/18 11:59 Lab Results 07/13/18 07/13/18 07/13/18 Range/Units 11:04 11:29 11:59 WBC 17.3 H (3.8-10.6) k/uL RBC 4.58 (4.30-5.90) m/uL Hgb 15.0 (13.0-17.5) gm/dL Hct 43.6 (39.0-53.0) % MCV 95.2 (80.0-100.0) fL MCH 32.7 (25.0-35.0) pg MCHC 34.4 (31.0-37.0) g/dL RDW 13.5 (11.5-15.5) % Plt Count 186 (150-450) k/uL Neutrophils % 84 % Lymphocytes % 9 % Monocytes % 5 % Eosinophils % 1 % Basophils % 0 % Neutrophils # 14.6 H (1.3-7.7) k/uL Lymphocytes # 1.6 (1.0-4.8) k/uL Monocytes # 0.9 (0-1.0) k/uL Eosinophils # 0.1 (0-0.7) k/uL Basophils # 0.0 (0-0.2) k/uL PT 11.9 (9.0-12.0) sec INR 1.3 H (<1.2) APTT 22.2 (22.0-30.0) sec Sodium (137-145) mmol/L Potassium (3.5-5.1) mmol/L Chloride (98-107) mmol/L Carbon Dioxide (22-30) mmol/L Anion Gap mmol/L BUN (9-20) mg/dL Creatinine (0.66-1.25) mg/dL Est GFR (CKD-EPI)AfAm (>60 ml/min/1.73 sqM) Est GFR (CKD-EPI)NonAf (>60 ml/min/1.73 sqM) Glucose (74-99) mg/dL Calcium (8.4-10.2) mg/dL Total Bilirubin (0.2-1.3) mg/dL AST (17-59) U/L ALT (21-72) U/L Alkaline Phosphatase (38-126) U/L Total Creatine Kinase (55-170) U/L CK-MB (CK-2) (0.0-2.4) ng/mL CK-MB (CK-2) Rel Index Troponin I (0.000-0.034) ng/mL Total Protein (6.3-8.2) g/dL Albumin (3.5-5.0) g/dL Amylase (30-110) U/L Lipase (23-300) U/L Urine Color Yellow Urine Appearance Clear (Clear) Urine pH 6.5 (5.0-8.0) Ur Specific [place] 1.035 (1.001-1.035) Urine Protein 1+ H (Negative) Urine Glucose (UA) Negative (Negative) Urine Ketones 1+ H (Negative) Urine Blood Small H (Negative) Urine Nitrite Negative (Negative) Urine Bilirubin Negative (Negative) Urine Urobilinogen <2.0 (<2.0) mg/dL Ur Leukocyte Esterase Negative (Negative) Urine RBC 11 H (0-5) /hpf Urine WBC 5 (0-5) /hpf Amorphous Sediment Rare H (None) /hpf Urine Mucus Rare H (None) /hpf 07/13/18 07/13/18 Range/Units 11:59 11:59 WBC (3.8-10.6) k/uL RBC (4.30-5.90) m/uL Hgb (13.0-17.5) gm/dL Hct (39.0-53.0) % MCV (80.0-100.0) fL MCH (25.0-35.0) pg MCHC (31.0-37.0) g/dL RDW (11.5-15.5) % Plt Count (150-450) k/uL Neutrophils % % Lymphocytes % % Monocytes % % Eosinophils % % Basophils % % Neutrophils # (1.3-7.7) k/uL Lymphocytes # (1.0-4.8) k/uL Monocytes # (0-1.0) k/uL Eosinophils # (0-0.7) k/uL Basophils # (0-0.2) k/uL PT (9.0-12.0) sec INR (<1.2) APTT (22.0-30.0) sec Sodium 139 (137-145) mmol/L Potassium 3.7 (3.5-5.1) mmol/L Chloride 104 (98-107) mmol/L Carbon Dioxide 26 (22-30) mmol/L Anion Gap 9 mmol/L BUN 19 (9-20) mg/dL Creatinine 0.91 (0.66-1.25) mg/dL Est GFR (CKD-EPI)AfAm >90 (>60 ml/min/1.73 sqM) Est GFR (CKD-EPI)NonAf >90 (>60 ml/min/1.73 sqM) Glucose 108 H (74-99) mg/dL Calcium 9.2 (8.4-10.2) mg/dL Total Bilirubin 0.9 (0.2-1.3) mg/dL AST 23 (17-59) U/L ALT 30 (21-72) U/L Alkaline Phosphatase 54 (38-126) U/L Total Creatine Kinase 368 H (55-170) U/L CK-MB (CK-2) 1.3 (0.0-2.4) ng/mL CK-MB (CK-2) Rel Index 0.4 Troponin I <0.012 (0.000-0.034) ng/mL Total Protein 6.6 (6.3-8.2) g/dL Albumin 4.0 (3.5-5.0) g/dL Amylase 32 (30-110) U/L Lipase 43 (23-300) U/L Urine Color Urine Appearance (Clear) Urine pH (5.0-8.0) Ur Specific [place] (1.001-1.035) Urine Protein (Negative) Urine Glucose (UA) (Negative) Urine Ketones (Negative) Urine Blood (Negative) Urine Nitrite (Negative) Urine Bilirubin (Negative) Urine Urobilinogen (<2.0) mg/dL Ur Leukocyte Esterase (Negative) Urine RBC (0-5) /hpf Urine WBC (0-5) /hpf Amorphous Sediment (None) /hpf Urine Mucus (None) /hpf - Radiology Data Radiology results: image reviewed (Abdominal x-ray shows no acute process) Disposition Clinical Impression: Abdominal pain Disposition: ADMITTED IP TO THIS HOSP Is patient prescribed a controlled substance at d/c from ED?: No Referrals: Raul Bowen MD [Primary Care Provider] - 1-2 days Decision Time: 13:05
[2018-07-13 11:36] LABS: Basophils % (A) 0 %; Eosinophils # (A) 0.1 k/uL (0-0.7); Eosinophils % (A) 1 %; HCT 43.6 % (39.0-53.0); Lymphocytes # (A) 1.6 k/uL (1.0-4.8); Lymphocytes % (A) 9 %; MCH 32.7 pg (25.0-35.0); MCHC 34.4 g/dL (31.0-37.0); MCV 95.2 fL (80.0-100.0); Mean Platelet Volume 9.5; Monocytes # (A) 0.9 k/uL (0-1.0); Monocytes % (A) 5 %; Neutrophils # (A) 14.6 k/uL (1.3-7.7); Neutrophils % (A) 84 %; Platelet Count 186 k/uL (150-450); RBC 4.58 m/uL (4.30-5.90); RDW 13.5 % (11.5-15.5); WBC 17.3 k/uL (3.8-10.6)
[2018-07-13 12:02] LABS: Amorphous Sediment,Urine Rare /hpf; Appearance,Urine Clear (Clear); Bilirubin,Urine Negative (Negative); Blood,Urine Small (Negative); Color,Urine Yellow; Glucose,Urine (UA) Negative (Negative); Ketones,Urine 1+ (Negative); Leukocyte Esterase,Urine Negative (Negative); Mucus,Urine Rare /hpf; Nitrite,Urine Negative (Negative); PH, Urine 6.5 (5.0-8.0); Protein,Urine 1+ (Negative); RBC,Urine 11 /hpf (0-5); Specific Gravity,Urine 1.035 (1.001-1.035); Urobilinogen,Urine <2.0 mg/dL (<2.0); WBC,Urine 5 /hpf (0-5)
[2018-07-13 12:20] LABS: ALT 30 U/L (21-72); AST 23 U/L (17-59); Alkaline Phosphatase 54 U/L (38-126); Amylase 32 U/L (30-110); Anion Gap 9 mmol/L; Blood Urea Nitrogen 19 mg/dL (9-20); Calcium 9.2 mg/dL (8.4-10.2); Carbon Dioxide 26 mmol/L (22-30); Chloride 104 mmol/L (98-107); Glucose 108 mg/dL (74-99); Lipase 43 U/L (23-300); Potassium 3.7 mmol/L (3.5-5.1); Sodium 139 mmol/L (137-145); Total Bilirubin 0.9 mg/dL (0.2-1.3); Total Protein 6.6 g/dL (6.3-8.2)
[2018-07-13 12:26] LABS: INR 1.3 (<1.2); Partial Thromboplastin Time 22.2 sec (22.0-30.0); Prothrombin Time 11.9 sec (9.0-12.0)
--- NOTE | 2018-07-13 12:40 | XR ---
EXAMINATION TYPE: XR KUB DATE OF EXAM: 07/13/2018 CLINICAL HISTORY: Abdominal pain and vomiting TECHNIQUE: Upright view of the abdomen was obtained. COMPARISON: None. FINDINGS: Scattered gas is seen in nondilated small bowel loops. Few prominent but nondilated loops of small bowel are seen within the left mid abdomen and lower abdomen. Gas and fecal material is seen in non-distended colon. There is no visceromegaly, pneumoperitoneum, or abnormal calcification esau reciated. The lung bases are clear and the osseous structures are intact. IMPRESSION: Nonobstructive bowel gas pattern.
[2018-07-13 12:45] LABS: Creatine Kinase 368 U/L (55-170)
[2018-07-13 12:57] LABS: Creatine Kinase MB 1.3 ng/mL (0.0-2.4); Troponin I <0.012 ng/mL (0.000-0.034)
[2018-07-13] MEDS ORDERED: ONDANSETRON 4 MG/2 ML VIAL IVP PRN (13:05)
[2018-07-13] MEDS ORDERED: MORPHINE SULFATE 4 MG/ML SYRINGE IV PRN (13:05)
[2018-07-13] MEDS ORDERED: NALOXONE 0.4 MG/ML 1 ML VIAL IV PRN (13:05)
[2018-07-13] MEDS ORDERED: PANTOPRAZOLE 40 MG/10 ML VIAL IV SCH (13:15)
[2018-07-13] MEDS: SODIUM CHLORIDE 0.9% 1,000 ML IV SCH ×2 (14:23→15:33)
--- NOTE | 2018-07-13 22:56 | HP ---
HISTORY AND PHYSICAL DATE OF ADMISSION: 07/13/2018 DATE OF SERVICE: 07/13/2018 PRESENTING COMPLAINT: Nausea, vomiting, epigastric pain. HISTORY OF PRESENTING COMPLAINT: This is a pleasant 47-year-old patient who follows with Dr. Bowen. The patient has been drinking a significant amount of alcohol for a long time. Since May patient has cut back drinking; a few drinks a day, up to now 2 a day. Patient does not eat too well. Four days ago patient started having severe nausea, vomiting and cramping in the abdomen and epigastric tenderness. Continued to do the same. Did come to the ER, was discharged, came back with more pain, feeling weak, tired, exhausted. No fever or chills. Last bowel movement was 2 days ago. Patient feels tired, exhausted and hence decided to come in. REVIEW OF SYSTEMS: CONSTITUTIONAL: Weak and tired. HEENT: None. RESPIRATORY: None. CARDIOVASCULAR: None. GASTROINTESTINAL: As above. GENITOURINARY: None. MUSCULOSKELETAL: None. DERMATOLOGICAL: None. HEMATOLOGICAL: None. LYMPHATICS: None. PSYCHIATRY: Anxious. NEUROLOGICAL: None. PAST MEDICAL HISTORY: 1. GERD. 2. Diverticulitis. 3. Ileitis. 4. Gastritis. 5. Sinus problem. PAST SURGICAL HISTORY: 1. Appendectomy. 2. Hernia repair. 3. Left inguinal hernia repair. SOCIAL HISTORY: Lives with friends. Not employed. Was drinking 3-4 tall boys of beer a day and much more heavily before May this year. Does chew tobacco. Denies use of recreational drugs. FAMILY HISTORY: Reviewed; noncontributory to presentation. HOME MEDICATIONS: 1. Protonix 40 mg a day. 2. Zofran 4 mg q.8 p.r.n. ALLERGIES: FLEXERIL. PHYSICAL EXAMINATION: VITAL SIGNS ON PRESENTATION: Temperature 98.2, pulse 68, respiration 18, blood pressure down to 99/62, pulse ox 98% on room air. GENERAL APPEARANCE: Thin build. Lying in bed. Tired-appearing. EYES: Pupils equal. Conjunctivae normal. HEENT: External appearance of nose and ears normal. Oral cavity dry mucous membrane. NECK: JVD not raised. Mass not palpable. RESPIRATORY: Effort normal. LUNGS: Fair air entry. CARDIOVASCULAR: First and second sounds normal. No edema. ABDOMEN: Soft. Epigastric tenderness. No guarding or rigidity. Liver and spleen not palpable. LYMPHATIC: No lymph node palpable in neck or axillae. PSYCHIATRY: Alert and oriented x3. Mood and affect slightly anxious-appearing. NEUROLOGICAL: Pupils equal. Cranial nerves grossly intact. Power and sensation grossly intact. INVESTIGATIONS: White count 17.3, hemoglobin 15, potassium 3.7. BUN and creatinine are normal. UA positive for ketones. Abdominal x-ray: non-obstructive gas pattern. ASSESSMENT: 1. Acute persistent nausea and vomiting, likely from severe gastritis in a patient who has been drinking alcohol for quite some time, now trying to cut back; still drinking a few drinks a day. 2. Clinical dehydration. 3. Leukocytosis, probably from volume contraction. 4. Ketonuria from poor oral intake. PLAN: Patient will be put on lactated Ringer's 150 mL/hour. Will add some liquid Tums and PPI. The patient may need an EGD down the road. Patient advised against alcohol and chewing tobacco. Currently on clear liquids. We will see how the patient does. MMODL / IJN: [id number] /
[2018-07-13] MEDS: LACTATED RINGERS 1,000 ML IV SCH (23:18)
[2018-07-13] MEDS: PANTOPRAZOLE 40 MG TABLET PO SCH (23:21)
[2018-07-13] MEDS: CALCIUM CARBONATE LIQUID 500 MG/5 ML CUP PO SCH (23:21)
[2018-07-14] MEDS: LACTATED RINGERS 1,000 ML IV SCH ×3 (06:13→20:25)
[2018-07-14] MEDS: ENOXAPARIN 40 MG/0.4 ML SYRINGE SQ SCH (08:34)
[2018-07-14] MEDS: CALCIUM CARBONATE LIQUID 500 MG/5 ML CUP PO SCH ×3 (08:34→17:07)
[2018-07-14] MEDS: PANTOPRAZOLE 40 MG TABLET PO SCH ×2 (08:34→17:07)
[2018-07-14 09:54] LABS: Basophils % (A) 0 %; Eosinophils % (A) 0 %; HCT 40.6 % (39.0-53.0); HGB 13.7 gm/dL (13.0-17.5); Lymphocytes # (A) 1.5 k/uL (1.0-4.8); Lymphocytes % (A) 15 %; MCH 32.3 pg (25.0-35.0); MCHC 33.6 g/dL (31.0-37.0); MCV 96.1 fL (80.0-100.0); Mean Platelet Volume 9.3; Monocytes # (A) 0.7 k/uL (0-1.0); Monocytes % (A) 7 %; Neutrophils # (A) 7.3 k/uL (1.3-7.7); Neutrophils % (A) 75 %; Platelet Count 159 k/uL (150-450); RBC 4.23 m/uL (4.30-5.90); RDW 12.8 % (11.5-15.5); WBC 9.7 k/uL (3.8-10.6)
[2018-07-14 10:06] LABS: ALT 23 U/L (21-72); AST 18 U/L (17-59); Albumin 3.9 g/dL (3.5-5.0); Alkaline Phosphatase 52 U/L (38-126); Amylase <30 U/L (30-110); Anion Gap 12 mmol/L; Blood Urea Nitrogen 13 mg/dL (9-20); Carbon Dioxide 23 mmol/L (22-30); Chloride 102 mmol/L (98-107); Glucose 89 mg/dL (74-99); Lipase 43 U/L (23-300); Potassium 3.4 mmol/L (3.5-5.1); Sodium 137 mmol/L (137-145); Total Bilirubin 0.8 mg/dL (0.2-1.3); Total Protein 6.4 g/dL (6.3-8.2)
--- NOTE | 2018-07-14 12:28 | P.CONS ---
History of Present Illness - Reason for Consult Consult date: 07/14/18 Epigastric pain Requesting physician: Sheldon Hernandez - Chief Complaint Epigastric pain - History of Present Illness 47-year-old male who drinks beer on a daily basis presents with intractable epigastric pain nausea vomiting abdominal cramps 2 days. Denies hematemesis hematochezia or melena. Admission white count 17.3 presently 9.7. Hemoglobin 15 presently 13.7. INR 1.3. BUN 19. Creatinine 0.9. LFTs within normal limits. Lipase 43. No history of GI bleed. EGD several years ago does not remember results. No history of colonoscopy. Abdominal x-rays nonobstructive bowel gas pattern. Review of Systems Constitutional: Denies fever, chills, sweats, weight gain, or loss. HEENT: Negative for migraines, blurred vision or loss, earaches, drainage, tinnitus, oral mucosal lesions, dysphagia, or odynophagia. Cardiac: Negative for chest pain, arrhythmias, or palpitation. Respiratory: Negative for shortness of breath, hemoptysis, cough, or sputum production. Gastrointestinal: See HPI for pertinent findings. Genitourinary: Negative for hematuria, urgency, frequency, polyuria, dysuria, or penile discharge. Musculoskeletal: Negative for muscle aches, swelling, arthritis, and arthralgias. Neurologic: Negative for stroke or TIA. Endocrine: Negative for thyroid problems. Skin: Negative for rash or itching. Psychiatric: Negative history for depression and anxiety Past Medical History Past Medical History: GERD/Reflux Additional Past Medical History / Comment(s): Diverticulitis, ileitis, gastritis , sinus problems at times. History of Any Multi-Drug Resistant Organisms: None Reported Past Surgical History: Appendectomy, Hernia Repair Additional Past Surgical History / Comment(s): L inguinal hernia repair, EGD. Past Anesthesia/Blood Transfusion Reactions: No Reported Reaction Smoking Status: Former smoker - Past Family History Mother Family Medical History: No Reported History Additional Family Medical History / Comment(s): Mother is healthy. Father History Unknown: Yes Family Medical History: No Reported History Additional Family Medical History / Comment(s): Pt states he does not speak to his father so father's medical hx is unknown. Medications and Allergies Home Medications Medication Instructions Recorded Confirmed Type Ondansetron Odt [Zofran Odt] 4 mg PO Q8HR PRN #15 tab 05/22/18 07/13/18 Rx Pantoprazole Sodium [Protonix] 40 mg PO DAILY #30 tablet. 07/12/18 07/13/18 Rx Allergies Allergy/AdvReac Type Severity Reaction Status Date / Time cyclobenzaprine AdvReac AGITATION Verified 07/13/18 11:47 [From Flexeril] Physical Exam Vitals: Vital Signs Temp Pulse Pulse Resp BP BP Pulse Ox 07/14/18 12:03 99.1 F 57 L 14 134/76 96 07/14/18 05:00 98.5 F 59 L 16 136/91 100 07/13/18 21:00 98.7 F 68 16 117/70 97 07/13/18 15:21 98.7 F 52 L 15 115/78 99 07/13/18 15:08 98.2 F 61 18 99/62 98 07/13/18 15:02 61 18 99/62 98 07/13/18 14:33 61 18 99/62 98 Intake and Output 07/13/18 07/14/18 07/14/18 22:59 06:59 14:59 Intake Total 1690 900 Balance 1690 900 Intake: Amount of Fluid Infused ( 1100 ml) Intake, IV Titration 900 Amount Lactated Ringers 1,000 ml 900 @ 150 mls/hr IV .Q6H40M [facility] Rx#:[id number] Oral 590 Other: Voiding Method Toilet Toilet Toilet # Voids 2 General appearance: The patient is alert, oriented, in no acute distress. HET: Head is normocephalic and atraumatic. Pupils are equal and reactive. Oropharynx is clear without lesions. Neck: Supple without lymphadenopathy. Trachea midline. Heart: S1 S2. Regular rate and rhythm. Lungs: No crackles or wheezes are heard. Abdomen: Soft, mild midepigastric tenderness, nondistended with bowel sounds. No peritoneal signs. No palpable organomegaly or masses. Extremities: Normal skin color and turgor. No cyanosis, rash, ulceration, clubbing, or edema. Radial and pedal pulses are 2/4 bilaterally. Neurological: No focal deficits. Strength and sensation are grossly intact. Results CBC & Chem 7: 07/14/18 09:00 07/14/18 09:00 Labs: Abnormal Lab Results - Last 24 Hours (Table) 07/13/18 07/13/18 07/14/18 Range/Units 11:59 11:59 09:00 RBC 4.23 L (4.30-5.90) m/uL INR 1.3 H (<1.2) Potassium (3.5-5.1) mmol/L Total Creatine Kinase 368 H (55-170) U/L Amylase (30-110) U/L 07/14/18 Range/Units 09:00 RBC (4.30-5.90) m/uL INR (<1.2) Potassium 3.4 L (3.5-5.1) mmol/L Total Creatine Kinase (55-170) U/L Amylase <30 L (30-110) U/L Abdominal x-ray: report reviewed (Dr. Fitzgerald) Assessment and Plan (1) Epigastric abdominal pain Narrative/Plan: 47-year-old male with daily alcohol intake presents with acute afebrile epigastric pain nonbloody nausea vomiting 2 days possible alcohol gastritis esophagitis possible nonbleeding peptic ulcer disease within the differential. Presently without emesis abdominal pain slightly improved. Current Visit: Yes Status: Acute Code(s): R10.13 - EPIGASTRIC PAIN SNOMED Code(s): 46793576 Plan: 1. Alcohol abstinence strongly advised. Protonix 40 mg IV twice daily. We'll start clear liquids and observe. EGD will be contingent on his clinical course. We'll follow closely with you. Thank you for this kind referral and the opportunity to participate in the care of your patient. This consultation was discussed with Dr. Fitzgerald. The impression and plan of care have been directed as dictated.
--- NOTE | 2018-07-14 23:14 | PN ---
PROGRESS NOTE DATE OF SERVICE: 07/14/2018 PRESENTING COMPLAINT: Nausea and vomiting. INTERVAL HISTORY: This patient admitted with what was felt to be alcoholic gastritis, esophagitis, nausea, vomiting is better. Some epigastric discomfort. Seen by Gastroenterology. Patient on a clear liquid diet. The patient's daughter is present. REVIEW OF SYSTEMS: Done for constitutional, cardiovascular, GI, pulmonary and relevant findings as above. CURRENT MEDICATIONS: Reviewed that include Tums, IV fluids, Protonix. PHYSICAL EXAMINATION: VITAL SIGNS: Temperature 99.1, pulse 57, respiration 14, blood pressure 130/76, pulse ox 96 percent on room air. GENERAL APPEARANCE: Sitting up, more awake. EYES: Pupils equal. Conjunctivae normal. HEENT: External appearance of nose and ears normal. Oral cavity normal. NECK JVD not raised. Mass not palpable. RESPIRATORY: Effort normal. LUNGS fair entry. CARDIOVASCULAR: 1st and 2nd sounds normal. No edema. ABDOMEN: Mild epigastric tenderness. No guarding or rigidity. Liver and spleen not palpable. PSYCHIATRY: Alert and oriented x3. Mood and affect less anxious-appearing. INVESTIGATIONS: White count 9.7, hemoglobin 13.7, potassium 3.4. BUN and creatinine is normal. ASSESSMENT: 1. Acute persistent nausea and vomiting, likely from severe gastritis and esophagitis in a patient drinking alcohol for quite a while with some clinical response. Tolerating clear liquids. 2. Clinical dehydration. 3. Leukocytosis likely from volume contraction, dehydration. 4. Ketonuria from poor oral intake. 5. Chronic alcohol usage. PLAN: Continue current medication and treatment plan. The patient is on clear liquids. Follow up with GI. Care was discussed with the patient. MMODL / IJN: [id number] /
[2018-07-15] MEDS: LACTATED RINGERS 1,000 ML IV SCH ×3 (04:53→17:15)
[2018-07-15] MEDS: PANTOPRAZOLE 40 MG TABLET PO SCH ×2 (08:01→17:16)
[2018-07-15] MEDS: CALCIUM CARBONATE LIQUID 500 MG/5 ML CUP PO SCH ×3 (08:01→17:16)
[2018-07-15] MEDS: ENOXAPARIN 40 MG/0.4 ML SYRINGE SQ SCH (08:01)
--- NOTE | 2018-07-15 11:00 | P.PN ---
Subjective Progress Note Date: 07/15/18 Principal diagnosis: Abdominal pain 47-year-old male admitted with epigastric abdominal pain nonbloody nausea vomiting with a history of daily alcohol intake. No further emesis. No bleeding. Afebrile. Still reports moderate abdominal pain across the midabdomen. White count yesterday 9.7. Hemoglobin 13.7. Tolerating clears. Objective - Vital Signs Vital signs: Vital Signs Temp 98.7 F 07/15/18 05:00 Pulse 68 07/15/18 05:00 Resp 18 07/15/18 05:00 BP 130/76 07/15/18 05:00 Pulse Ox 99 07/15/18 05:00 Intake & Output 07/14/18 07/15/18 07/15/18 18:59 06:59 18:59 Intake Total 1650 Balance 1650 Intake: Intake, IV Titration 1650 Amount Lactated Ringers 1,000 ml 1650 @ 150 mls/hr IV .Q6H40M [facility] Rx#:[id number] Other: Voiding Method Toilet Toilet Toilet # Voids 1 - Exam General appearance: The patient is alert, oriented, in no acute distress. HET: Head is normocephalic and atraumatic. Pupils are equal and reactive. Oropharynx is clear without lesions. Neck: Supple without lymphadenopathy. Trachea midline. Heart: S1 S2. Regular rate and rhythm. Lungs: No crackles or wheezes are heard. Abdomen: Soft, tenderness midepigastric midabdomen, nondistended with bowel sounds. No peritoneal signs. No palpable organomegaly or masses. Extremities: Normal skin color and turgor. No cyanosis, rash, ulceration, clubbing, or edema. Radial and pedal pulses are 2/4 bilaterally. Neurological: No focal deficits. Strength and sensation are grossly intact. - Labs CBC & Chem 7: 07/14/18 09:00 07/14/18 09:00 Assessment and Plan (1) Epigastric abdominal pain Narrative/Plan: 47-year-old male with daily alcohol intake presents with acute afebrile epigastric pain nonbloody nausea vomiting 2 days possible alcohol gastritis esophagitis possible nonbleeding peptic ulcer disease within the differential. Presently without emesis abdominal pain slightly improved. Current Visit: Yes Status: Acute Code(s): R10.13 - EPIGASTRIC PAIN SNOMED Code(s): 03093489 Plan: 1. CT abdomen and pelvis. Continue Protonix 40 mg IV twice daily. Light diet as tolerated. EGD will be contingent on his clinical course. We'll follow closely with you. Thank you for this kind referral and the opportunity to participate in the care of your patient. This consultation was discussed with Dr. Fitzgerald. The impression and plan of care have been directed as dictated.
[2018-07-15] MEDS: IOPAMIDOL-300 CONTRAST 30 ML VIAL (ORAL USE) PO PRN ×2 (11:25→12:26)
[2018-07-15 12:32] LABS: Basophils % (A) 0 %; Eosinophils % (A) 0 %; HCT 43.2 % (39.0-53.0); HGB 15.1 gm/dL (13.0-17.5); Lymphocytes # (A) 1.5 k/uL (1.0-4.8); Lymphocytes % (A) 18 %; MCH 33.2 pg (25.0-35.0); MCHC 35.1 g/dL (31.0-37.0); MCV 94.6 fL (80.0-100.0); Monocytes # (A) 0.6 k/uL (0-1.0); Monocytes % (A) 7 %; Neutrophils # (A) 6.1 k/uL (1.3-7.7); Neutrophils % (A) 73 %; Platelet Count 178 k/uL (150-450); RBC 4.56 m/uL (4.30-5.90); RDW 12.5 % (11.5-15.5); WBC 8.3 k/uL (3.8-10.6)
[2018-07-15 12:44] LABS: ALT 25 U/L (21-72); AST 22 U/L (17-59); Albumin 4.2 g/dL (3.5-5.0); Alkaline Phosphatase 55 U/L (38-126); Anion Gap 14 mmol/L; Blood Urea Nitrogen 13 mg/dL (9-20); Calcium 9.6 mg/dL (8.4-10.2); Carbon Dioxide 23 mmol/L (22-30); Chloride 99 mmol/L (98-107); Glucose 78 mg/dL (74-99); Potassium 3.5 mmol/L (3.5-5.1); Sodium 136 mmol/L (137-145); Total Bilirubin 1.4 mg/dL (0.2-1.3)
--- NOTE | 2018-07-15 13:52 | CT ---
EXAMINATION TYPE: CT abdomen pelvis w con DATE OF EXAM: 07/15/2018 COMPARISON: 07/12/2018 HISTORY: Generalized abdominal pain with cramping. CT DLP: 661 mGycm Automated exposure control for dose reduction was used. TECHNIQUE: Helical acquisition of images was performed from the lung bases through the pelvis. CONTRAST: Performed with Oral Contrast and with IV Contrast, patient injected with 100 mL of Isovue M300. FINDINGS: LUNG BASES: Nodular left basilar atelectasis is seen with no soft tissue density on soft tissue algor ithm. LIVER/GB: Hepatic parenchyma is diffusely hypoattenuated in comparison to that of the spleen, most co mmonly seen in hepatic steatosis. This finding limits evaluation for hepatic masses. No gross evidenc e of hepatic mass is seen. No intrahepatic biliary ductal dilatation. No cholelithiasis PANCREAS: No ductal dilatation. Pancreas enhances homogeneously. SPLEEN: No significant abnormality is seen. No splenomegaly. ADRENALS: No significant abnormality is seen. No nodularity or thickening. KIDNEYS: Kidneys enhance and excrete homogeneously. FREE AIR: No free air is visualized. ADENOPATHY: No greater than 1 cm short axis lymph node is seen within the abdomen or pelvis. REPRODUCTIVE ORGANS: No significant abnormality is seen URINARY BLADDER: No significant abnormality is seen. OSSEOUS STRUCTURES: Possible bone island is unchanged from the prior of 07/12/2018 within the left fe mur. Smaller ill-defined right iliac lesion on image 53 is also unchanged. Appendix is not definitely seen. No dilated large or small bowel to suggest obstruction. BOWEL: There is mild thickening of the sigmoid colon seen in series 3 image 65 and 66 that is long s egment. No surrounding inflammatory fat stranding is seen. No focal fluid collection to suggest absce ss. IMPRESSION: MILD LONG SEGMENT THICKENING OF THE SIGMOID COLON. FINDINGS MAY RELATE TO INCOMPLETE DISTENTION OR UN COMPLICATED ACUTE COLITIS.
--- NOTE | 2018-07-15 19:37 | PN ---
PROGRESS NOTE DATE OF SERVICE: 07/15/18. PRESENTING COMPLAINT: Nausea, vomiting. INTERVAL HISTORY: Patient presented what appeared to be severe alcoholic gastritis, esophagitis. Nausea, vomiting greatly improved. Did actually tolerate the light diet today. Abdominal pain is much improved, been up to the bathroom. GI did order a CT scan. REVIEW OF SYSTEMS: Done for constitutional, cardiovascular, GI, pulmonary; relevant findings as above. CURRENT MEDICATIONS: Reviewed that include lactated Ringer's, Protonix, liquid Tums. PHYSICAL EXAMINATION: Temperature 99, pulse 54, respiratory 20, blood pressure 149/98, pulse 100 percent on room air. GENERAL APPEARANCE: Sitting up, looking much better. EYES: Pupils equal. Conjunctivae normal. HEENT: External appearance of nose and ears normal. Oral cavity normal. NECK: JVD not raised. Mass not palpable. RESPIRATORY: Effort, lungs are clear. CARDIOVASCULAR: First and second sounds, no edema. ABDOMEN: Mild epigastric tenderness. No guarding or rigidity, soft. Liver and spleen not palpable. PSYCHIATRY: Alert and oriented x3. Mood and affect less anxious-appearing. INVESTIGATIONS: White count 8.3, hemoglobin 15.1, potassium 3.5. CT scan of the abdomen nonspecific. ASSESSMENT: 1. Acute persistent nausea and vomiting, likely from severe gastritis with esophagitis, likely alcohol-induced with good clinical response. The patient tolerating a soft diet. 2. Clinical dehydration, improved. 3. Leukocytosis likely from volume contraction, improved. 4. Ketonuria from poor oral intake. 5. Chronic alcohol use. PLAN: Care was discussed with the patient. The patient's diet has already been advanced and remains to do well, can be discharged tomorrow. MMODL / IJN: [id number] /
[2018-07-16] MEDS: PANTOPRAZOLE 40 MG TABLET PO SCH (08:29)
[2018-07-16] MEDS: CALCIUM CARBONATE LIQUID 500 MG/5 ML CUP PO SCH ×2 (08:29→13:42)
[2018-07-16] MEDS: ENOXAPARIN 40 MG/0.4 ML SYRINGE SQ SCH (08:30)
--- NOTE | 2018-07-16 09:46 | P.PN ---
Subjective Progress Note Date: 07/16/18 Principal diagnosis: Abdominal pain 47-year-old male admitted with epigastric abdominal pain nonbloody nausea vomiting with a history of daily alcohol intake. No further emesis. No bleeding. Afebrile. Still reports abdominal pain across the midabdomen. CT A/ P no acute process. White count yesterday 8.3. Hemoglobin 15.1. Tolerating advanced diet. Objective - Vital Signs Vital signs: Vital Signs Temp 98.2 F 07/16/18 07:10 Pulse 65 07/16/18 07:10 Resp 20 07/16/18 07:10 BP 95/63 07/16/18 07:10 Pulse Ox 99 07/16/18 07:10 Intake & Output 07/15/18 07/16/18 07/16/18 18:59 06:59 18:59 Intake Total 1200 Balance 1200 Intake: Intake, IV Titration 1200 Amount Lactated Ringers 1,000 ml 1200 @ 150 mls/hr IV .Q6H40M [facility] Rx#:[id number] Other: Voiding Method Toilet Toilet Toilet # Voids 1 - Exam General appearance: The patient is alert, oriented, in no acute distress. HET: Head is normocephalic and atraumatic. Pupils are equal and reactive. Oropharynx is clear without lesions. Neck: Supple without lymphadenopathy. Trachea midline. Heart: S1 S2. Regular rate and rhythm. Lungs: No crackles or wheezes are heard. Abdomen: Soft, mild tenderness midepigastric midabdomen, nondistended with bowel sounds. No peritoneal signs. No palpable organomegaly or masses. Extremities: Normal skin color and turgor. No cyanosis, rash, ulceration, clubbing, or edema. Radial and pedal pulses are 2/4 bilaterally. Neurological: No focal deficits. Strength and sensation are grossly intact. - Labs CBC & Chem 7: 07/15/18 11:33 07/15/18 11:33 Labs: Abnormal Lab Results - Last 24 Hours (Table) 07/15/18 Range/Units 11:33 Sodium 136 L (137-145) mmol/L Total Bilirubin 1.4 H (0.2-1.3) mg/dL Assessment and Plan (1) Epigastric abdominal pain Narrative/Plan: 47-year-old male with daily alcohol intake presents with acute afebrile epigastric pain nonbloody nausea vomiting 2 days possible alcohol gastritis esophagitis possible nonbleeding peptic ulcer disease within the differential. Presently without emesis abdominal pain slightly improved. Current Visit: Yes Status: Acute Code(s): R10.13 - EPIGASTRIC PAIN SNOMED Code(s): 08883921 Plan: 1. Hemoglobin stable. No bleeding. No emesis. CT reviewed. Agreeable for discharge. Alcohol abstinence. Advised Protonix 40 mg daily on discharge. Return to office in 2-3 weeks for reevaluation. Assessment and plan a care discussed with Dr. Fitzgerald
[2018-07-16 14:37] VITALS: BP 109/70; PULSE 63; RESP 18; TEMP 98
--- NOTE | 2018-07-20 22:42 | DS ---
DISCHARGE SUMMARY DATE OF ADMISSION: 07/13/2018 DATE OF DISCHARGE: 07/16/2018 FINAL DIAGNOSES: 1. Persistent nausea and vomiting, probably from severe gastritis and esophagitis, alcohol-induced. 2. Clinical dehydration on admission. 3. Leukocytosis, likely from volume contraction on presentation. 4. Ketonuria from starvation. 5. Chronic alcohol use. HOSPITAL COURSE: This patient, who drinks quite a bit of alcohol and does not eat too well, presented with persistent nausea and vomiting, not able to keep anything down. CT scan of the abdomen and pelvis was done. Patient was seen by Dr. Patricia Fitzgerald from GI. Patient was managed conservatively and given PPIs. Patient started tolerating a diet. Patient was counseled extensively about complete cessation of alcohol. PHYSICAL EXAMINATION: Temperature 98, pulse 63, respiration 18, blood pressure 109/70, pulse ox 99% on room air. ABDOMEN: Soft, nontender. LABS: White count 8.3. AST and ALT normal. DISCHARGE MEDICATIONS AND RECOMMENDATIONS: 1. Zofran 4 mg q.8 p.r.n. 2. Protonix 40 mg b.i.d. 3. Diet soft, bland. Advance as tolerated. 4. No alcohol. 5. Liquid Tums [id number] p.r.n. 6. Follow up with Dr. Dipti Fitzgerald on 08/24/2018. 7. Follow up with Dr. Raul Bowen on 07/22/2018. MMODL / IJN: [id number] /
== END 2018-07-16 16:50 | disposition home or self-care (01) ==
LOC: EC 10:41 → 3OBS 13:05 → 5MS5E 14:50
PROVIDERS: ADMIT Hospitalist; ATTEND Hospitalist
DX: R11.2 Nausea with vomiting, unspecified (principal); K29.20 Alcoholic gastritis without bleeding; K21.0 Gastro-esophageal reflux disease with esophagitis; E86.0 Dehydration; D72.829 Elevated white blood cell count, unspecified; T73.0XXA Starvation, initial encounter; F10.20 Alcohol dependence, uncomplicated; F17.200 Nicotine dependence, unspecified, uncomplicated; Z79.899 Other long term (current) drug therapy; Z88.8 Allergy status to other drugs, medicaments and biological substances
CPT/HCPCS: 99285; 96361 ×4; 96374; 96375 ×5; 96376; 96372 ×3; 36415; 93005 ×2; 80053 ×3; 82150 ×2; 82550; 82553; 83690 ×2; 83735; 84484; 85025 ×3; 85610; 85730; 81001; 74018; 74177; G0378 ×4; J2270; J2765; J2405; J1650 ×3; C9113; Q9967

== ENCOUNTER 2019-10-10 21:38 | Emergency (ER) | payer OTHER ==
[2019-10-10 21:48] VITALS: RESP 18; TEMP 97.7
[2019-10-10 22:17] LABS: Basophils % (A) 0 %; Eosinophils # (A) 0.1 k/uL (0-0.7); Eosinophils % (A) 1 %; HGB 13.2 gm/dL (13.0-17.5); Lymphocytes # (A) 2.1 k/uL (1.0-4.8); Lymphocytes % (A) 27 %; MCH 32.4 pg (25.0-35.0); MCHC 33.1 g/dL (31.0-37.0); Monocytes # (A) 0.3 k/uL (0-1.0); Monocytes % (A) 4 %; Neutrophils # (A) 5.2 k/uL (1.3-7.7); Neutrophils % (A) 65 %; Platelet Count 170 k/uL (150-450); RBC 4.08 m/uL (4.30-5.90); RDW 12.7 % (11.5-15.5)
--- NOTE | 2019-10-10 22:22 | XR ---
EXAMINATION TYPE: XR chest 2V DATE OF EXAM: 10/10/2019 COMPARISON: 05/22/2018 and 12/29/2016 HISTORY: Chest pain TECHNIQUE: FINDINGS: Heart and mediastinum are normal. Lungs are clear. Diaphragm is normal. Bony thorax appears intact.. IMPRESSION: Normal chest. No change.
[2019-10-10 22:25] LABS: ALT 20 U/L (4-49); AST 31 U/L (17-59); African American GFR (CKD) >90 (>60 ml/min/1.73 sqM); Albumin 4.5 g/dL (3.5-5.0); Alkaline Phosphatase 55 U/L (38-126); Anion Gap 10 mmol/L; Blood Urea Nitrogen 13 mg/dL (9-20); Calcium 8.9 mg/dL (8.4-10.2); Carbon Dioxide 23 mmol/L (22-30); Chloride 104 mmol/L (98-107); Glucose 95 mg/dL (74-99); Magnesium 2.2 mg/dL (1.6-2.3); Non-African American GFR(CKD) >90 (>60 ml/min/1.73 sqM); Potassium 3.8 mmol/L (3.5-5.1); Sodium 137 mmol/L (137-145); Total Bilirubin 0.4 mg/dL (0.2-1.3); Total Protein 7.4 g/dL (6.3-8.2)
[2019-10-10 22:28] LABS: Partial Thromboplastin Time 22.6 sec (22.0-30.0); Prothrombin Time 10.5 sec (9.0-12.0)
[2019-10-10 22:34] VITALS: BP 107/82; PULSE 62
--- NOTE | 2019-10-10 22:46 | ED ---
General Adult HPI - General Chief complaint: Chest Pain Stated complaint: Abn EKG Time Seen by Provider: 10/10/19 21:48 Source: patient, family Mode of arrival: ambulatory Limitations: no limitations - History of Present Illness Initial comments: 41-year-old male patient presents to the emergency department today for evaluation of chest pain. Patient states he had pain to his mid upper chest that started an hour or 2 prior to arrival. Patient denies any associated symptoms including shortness of breath, nausea, vomiting, dizziness, weakness. Patient does admit to drinking several beers and liquor today. Denies any history of chest pain. Denies any history of hypertension, hyperlipidemia, or diabetes. He does report a history of smoking. He is unsure if there is a family history of cardiac disease. Patient does admit to drinking on a daily basis. Patient denies any recent rash, fever, chills, abdominal pain, nausea, vomiting, diarrhea, constipation, back pain, numbness, tingling, hematuria, dysuria, urinary urgency, urinary frequency, headache, visual changes, or any other complaints. Patient did have EMS come to the house. They did and EKG and patient reportedly had bradycardia in the 40s. He did not want to be transported via EMS and came in by private vehicle. - Related Data Previous Rx's Medication Instructions Recorded Ondansetron Odt [Zofran ODT] 4 mg PO Q8HR PRN #15 tab 05/22/18 Pantoprazole Sodium [Protonix] 40 mg PO BID #60 tablet. 07/16/18 Allergies Allergy/AdvReac Type Severity Reaction Status Date / Time cyclobenzaprine AdvReac AGITATION Verified 10/10/19 21:47 [From Flexeril] Review of Systems ROS Statement: Those systems with pertinent positive or pertinent negative responses have been documented in the HPI. ROS Other: All systems not noted in ROS Statement are negative. Past Medical History Past Medical History: GERD/Reflux Additional Past Medical History / Comment(s): Diverticulitis, ileitis, gastritis, sinus problems at times. History of Any Multi-Drug Resistant Organisms: None Reported Past Surgical History: Appendectomy, Hernia Repair Additional Past Surgical History / Comment(s): L inguinal hernia repair, EGD. Past Anesthesia/Blood Transfusion Reactions: No Reported Reaction Past Psychological History: No Psychological Hx Reported Smoking Status: Light tobacco smoker Past Alcohol Use History: Abuse, Daily, Heavy Past Drug Use History: Opiates, Prescription Drug Abuse - Past Family History Mother Family Medical History: No Reported History Additional Family Medical History / Comment(s): Mother is healthy. Father History Unknown: Yes Family Medical History: No Reported History Additional Family Medical History / Comment(s): Pt states he does not speak to his father so father's medical hx is unknown. General Exam Limitations: no limitations General appearance: alert, in no apparent distress, other (This is a well-developed, well-nourished adult male patient in no acute distress. Vital signs upon presentation are temperature 97.7F, pulse 85, respirations 18, blood pressure 116/79, pulse ox 97% on room air.) Eye exam: Present: normal appearance, PERRL, EOMI. Absent: scleral icterus, conjunctival injection, periorbital swelling ENT exam: Present: normal exam, normal oropharynx, mucous membranes moist Respiratory exam: Present: normal lung sounds bilaterally. Absent: respiratory distress, wheezes, rales, rhonchi, stridor Cardiovascular Exam: Present: regular rate, normal rhythm, normal heart sounds. Absent: systolic murmur, diastolic murmur, rubs, gallop, clicks Neurological exam: Present: alert, oriented X3, CN II-XII intact Psychiatric exam: Present: normal affect, normal mood Skin exam: Present: warm, dry, intact, normal color. Absent: rash Course Vital Signs 10/10/19 10/10/19 10/10/19 21:43 22:13 22:33 Temperature 97.7 F Pulse Rate 85 62 Respiratory 18 18 18 Rate Blood Pressure 116/79 107/82 O2 Sat by Pulse 97 100 Oximetry EKG Findings - EKG Comments: EKG Findings:: EKG obtained at 2157 shows normal sinus rhythm with a ventricular rate of 71, NC interval 176, QRS duration 80, QT 366, QTc 397. No evidence of ST elevation or depression Medical Decision Making - Medical Decision Making 49-year-old male patient who is an alcoholic presents to the emergency department today for evaluation of an episode of upper chest pain. Symptoms have resolved by the time he arrived to the emergency department. He had no associated symptoms with this. EKG shows sinus rhythm with changes that are chronic from EKG in July 2018. Labs reviewed and are unremarkable. Troponin negative. I did discuss findings and results with the patient. We discharged him up this primary care physician for recheck in 1-2 days. He is instructed to discuss possible referral to cardiology. Return parameters discussed in detail. He verbalizes understanding and agrees with this plan. Daughter is taking him home and assuming responsibility for him until sober. - Lab Data Result diagrams: 10/10/19 22:07 10/10/19 22:07 Lab Results 10/10/19 10/10/19 10/10/19 Range/Units 22:07 22:07 22:07 WBC 8.0 (3.8-10.6) k/uL RBC 4.08 L (4.30-5.90) m/uL Hgb 13.2 (13.0-17.5) gm/dL Hct 40.0 (39.0-53.0) % MCV 98.0 (80.0-100.0) fL MCH 32.4 (25.0-35.0) pg MCHC 33.1 (31.0-37.0) g/dL RDW 12.7 (11.5-15.5) % Plt Count 170 (150-450) k/uL Neutrophils % 65 % Lymphocytes % 27 % Monocytes % 4 % Eosinophils % 1 % Basophils % 0 % Neutrophils # 5.2 (1.3-7.7) k/uL Lymphocytes # 2.1 (1.0-4.8) k/uL Monocytes # 0.3 (0-1.0) k/uL Eosinophils # 0.1 (0-0.7) k/uL Basophils # 0.0 (0-0.2) k/uL PT 10.5 (9.0-12.0) sec INR 1.0 (<1.2) APTT 22.6 (22.0-30.0) sec Sodium 137 (137-145) mmol/L Potassium 3.8 (3.5-5.1) mmol/L Chloride 104 (98-107) mmol/L Carbon Dioxide 23 (22-30) mmol/L Anion Gap 10 mmol/L BUN 13 (9-20) mg/dL Creatinine 0.79 (0.66-1.25) mg/dL Est GFR (CKD-EPI)AfAm >90 (>60 ml/min/1.73 sqM) Est GFR (CKD-EPI)NonAf >90 (>60 ml/min/1.73 sqM) Glucose 95 (74-99) mg/dL Calcium 8.9 (8.4-10.2) mg/dL Magnesium 2.2 (1.6-2.3) mg/dL Total Bilirubin 0.4 (0.2-1.3) mg/dL AST 31 (17-59) U/L ALT 20 (4-49) U/L Alkaline Phosphatase 55 (38-126) U/L Troponin I (0.000-0.034) ng/mL Total Protein 7.4 (6.3-8.2) g/dL Albumin 4.5 (3.5-5.0) g/dL 10/10/19 Range/Units 22:07 WBC (3.8-10.6) k/uL RBC (4.30-5.90) m/uL Hgb (13.0-17.5) gm/dL Hct (39.0-53.0) % MCV (80.0-100.0) fL MCH (25.0-35.0) pg MCHC (31.0-37.0) g/dL RDW (11.5-15.5) % Plt Count (150-450) k/uL Neutrophils % % Lymphocytes % % Monocytes % % Eosinophils % % Basophils % % Neutrophils # (1.3-7.7) k/uL Lymphocytes # (1.0-4.8) k/uL Monocytes # (0-1.0) k/uL Eosinophils # (0-0.7) k/uL Basophils # (0-0.2) k/uL PT (9.0-12.0) sec INR (<1.2) APTT (22.0-30.0) sec Sodium (137-145) mmol/L Potassium (3.5-5.1) mmol/L Chloride (98-107) mmol/L Carbon Dioxide (22-30) mmol/L Anion Gap mmol/L BUN (9-20) mg/dL Creatinine (0.66-1.25) mg/dL Est GFR (CKD-EPI)AfAm (>60 ml/min/1.73 sqM) Est GFR (CKD-EPI)NonAf (>60 ml/min/1.73 sqM) Glucose (74-99) mg/dL Calcium (8.4-10.2) mg/dL Magnesium (1.6-2.3) mg/dL Total Bilirubin (0.2-1.3) mg/dL AST (17-59) U/L ALT (4-49) U/L Alkaline Phosphatase (38-126) U/L Troponin I <0.012 (0.000-0.034) ng/mL Total Protein (6.3-8.2) g/dL Albumin (3.5-5.0) g/dL - Radiology Data Radiology results: report reviewed, image reviewed Two-view x-ray of the chest is obtained. Report was reviewed in its entirety. Impression by Dr. Jacobs shows normal chest. No change. Disposition Clinical Impression: Chest pain Disposition: HOME SELF-CARE Condition: Good Instructions (If sedation given, give patient instructions): Chest Pain (ED) Additional Instructions: Follow up with your primary care physician. Discuss possible referral to cardiology. Return to the emergency department immediately for any new, worsening, or concerning symptoms. Is patient prescribed a controlled substance at d/c from ED?: No Referrals: [facility] [NON-STAFF] - 1-2 days Time of Disposition: 23:14
== END 2019-10-10 23:54 | disposition home or self-care (01) ==
LOC: EC 21:38
DX: R07.9 Chest pain, unspecified (principal); R94.31 Abnormal electrocardiogram [ECG] [EKG]; F17.200 Nicotine dependence, unspecified, uncomplicated; Z88.8 Allergy status to other drugs, medicaments and biological substances
CPT/HCPCS: 36415; 71046; 80053; 83735; 84484; 85025; 85610; 85730; 93005; 99285

== ENCOUNTER 2021-05-03 13:14 | Emergency (ER) | payer OTHER ==
[2021-05-03 13:18] VITALS: BP 144/103; PULSE 95; RESP 17; TEMP 98.4
[2021-05-03] MEDS ORDERED: KETOROLAC 15 MG/ML 1 ML VIAL IM STA (13:33)
[2021-05-03] MEDS ORDERED: methylPREDNISolone SOD SUCCI 125 MG/2 ML VIAL IM STA (13:33)
--- NOTE | 2021-05-03 14:08 | CT ---
EXAMINATION TYPE: CT lumbar spine wo con DATE OF EXAM: 05/03/2021 COMPARISON: None HISTORY: Pain in low back CT DLP: 508.7 mGycm CONTRAST: None TECHNIQUE: CT of the lumbar spine is performed on a spiral scan at 3 mm thick sections. Reconstructed images are performed in the coronal and sagittal planes. FINDINGS: T12-L1: No focal disc herniation or significant disc bulge is evident. No spinal canal stenosis or neural foraminal stenosis is present. L1-L2: No focal disc herniation or significant disc bulge is evident. No spinal canal stenosis or n eural foraminal stenosis is present L2-L3: No focal disc herniation or significant disc bulge is evident. No spinal canal stenosis or n eural foraminal stenosis is present L3-L4: Broad-based disc bulge and has moderate anterior thecal sac flattening. No AP spinal canal kvng nosis or neural foraminal stenosis is present. L4-L5: No focal disc herniation or significant disc bulge is evident. No spinal canal stenosis or n eural foraminal stenosis is present L5-S1: Normal disc bulge with anterior thecal sac contact. No AP spinal canal stenosis is present. Ne ural foramen are patent. Vertebral alignment appears normal. No suspicious acute changes are evident. Vertebral body heights a re preserved. IMPRESSION: 1. Mild disc bulging at L3-4 with mild anterior thecal sac flattening. 2. Minimal disc bulge L5-S1 with anterior thecal sac contact. 3. No acute changes identified.
[2021-05-03] MEDS ORDERED: ACET/COD 300 MG/30 MG STARTER PACK 6 TAB BTL PO STA (14:46)
--- NOTE | 2021-05-03 14:52 | ED ---
General Adult HPI - General Chief complaint: Back Pain/Injury Stated complaint: Back pain Time Seen by Provider: 05/03/21 13:24 Source: patient, RN notes reviewed Mode of arrival: ambulatory Limitations: no limitations - History of Present Illness Initial comments: 50-year-old male sent to the emergency room for chief, and of back pain. Patient reports he was getting a truck ready for the winter. He was lifting a plow department on the truck when he strained his back. States that it has been consistently painful but worsened after he woke up this morning. Patient denies bladder or bowel changes, saddle anesthesia, weakness of the legs, or fevers. PPatient has no other complaints at this time including shortness of breath, chest pain, abdominal pain, nausea or vomiting, headache, or visual changes. - Related Data Previous Rx's Medication Instructions Recorded Ondansetron Odt [Zofran ODT] 4 mg PO Q8HR PRN #15 tab 05/22/18 Pantoprazole Sodium [Protonix] 40 mg PO BID #60 tablet. 07/16/18 predniSONE 50 mg PO DAILY #5 tablet 05/03/21 Allergies Allergy/AdvReac Type Severity Reaction Status Date / Time cyclobenzaprine AdvReac AGITATION Verified 05/03/21 13:18 [From Flexeril] Review of Systems ROS Statement: Those systems with pertinent positive or pertinent negative responses have been documented in the HPI. ROS Other: All systems not noted in ROS Statement are negative. Past Medical History Past Medical History: GERD/Reflux Additional Past Medical History / Comment(s): Diverticulitis, ileitis, gastriti s, sinus problems at times. History of Any Multi-Drug Resistant Organisms: None Reported Past Surgical History: Appendectomy, Hernia Repair Additional Past Surgical History / Comment(s): L inguinal hernia repair, EGD. Past Anesthesia/Blood Transfusion Reactions: No Reported Reaction Past Psychological History: No Psychological Hx Reported Smoking Status: Never smoker Past Alcohol Use History: Abuse, Daily, Heavy Past Drug Use History: Opiates, Prescription Drug Abuse - Past Family History Mother Family Medical History: No Reported History Additional Family Medical History / Comment(s): Mother is healthy. Father History Unknown: Yes Family Medical History: No Reported History Additional Family Medical History / Comment(s): Pt states he does not speak to his father so father's medical hx is unknown. General Exam Limitations: no limitations General appearance: alert, in no apparent distress Head exam: Present: atraumatic, normocephalic, normal inspection Eye exam: Present: normal appearance, PERRL, EOMI. Absent: scleral icterus, conjunctival injection, periorbital swelling ENT exam: Present: normal exam, mucous membranes moist Neck exam: Present: normal inspection. Absent: tenderness, meningismus, lymphadenopathy Respiratory exam: Present: normal lung sounds bilaterally. Absent: respiratory distress, wheezes, rales, rhonchi, stridor Cardiovascular Exam: Present: regular rate, normal rhythm, normal heart sounds. Absent: systolic murmur, diastolic murmur, rubs, gallop, clicks GI/Abdominal exam: Present: soft, normal bowel sounds. Absent: distended, tenderness, guarding, rebound, rigid Extremities exam: Present: normal capillary refill, other (Strength 5 out of 5 bilaterally) Back exam: Present: vertebral tenderness. Absent: paraspinal tenderness Course Vital Signs 05/03/21 13:15 Temperature 98.4 F Pulse Rate 95 Respiratory 17 Rate Blood Pressure 144/103 O2 Sat by Pulse 96 Oximetry Medical Decision Making - Medical Decision Making Patient presents for low back pain after an injury. Musculoskeletal in nature. Worsens with movement such as standing up straight. Reproducible to palpation. Neurovascular status intact in lower extremities. No red flag symptoms. CT was obtained which showed mild disc bulging at L3-L4 and L5-S1. Patient was given Toradol and Solu-Medrol. Did have some improvement in symptoms. Patient will be referred to orthopedics. Sent home with Tylenol 3 and steroids. He will return here for any worsening symptoms. Disposition Clinical Impression: Mechanical back pain, Bulging disc Disposition: HOME SELF-CARE Condition: Good Instructions (If sedation given, give patient instructions): Acute Low Back Pain (ED) Additional Instructions: Take Motrin for pain. If pain is severe take tylenol [address] or operate machinery while taking this. Take steroid as directed. Return to the emergency room for any worsening symptoms. Prescriptions: predniSONE 50 mg PO DAILY #5 tablet Is patient prescribed a controlled substance at d/c from ED?: No Referrals: Rob Chaidez DO [Doctor of Osteopathic Medicine] - 1-2 days Time of Disposition: 14:50
== END 2021-05-03 15:04 | disposition home or self-care (01) ==
LOC: EC 13:14
DX: M51.26 Other intervertebral disc displacement, lumbar region (principal); K21.9 Gastro-esophageal reflux disease without esophagitis; F11.90 Opioid use, unspecified, uncomplicated; Z87.19 Personal history of other diseases of the digestive system; Z90.49 Acquired absence of other specified parts of digestive tract
CPT/HCPCS: 72131; 96372 ×2; 99283; J2930; J1885

== ENCOUNTER 2022-01-12 12:36 | Observation (INO) | payer OTHER ==
[2022-01-12] MEDS ORDERED: SODIUM CHLORIDE 0.9% 1,000 ML IV STA ×2 (13:24)
[2022-01-12] MEDS ORDERED: PANTOPRAZOLE 40 MG/10 ML VIAL IVP STA (13:24)
[2022-01-12] MEDS ORDERED: MORPHINE SULFATE 4 MG/ML SYRINGE IV STA (13:24)
[2022-01-12] MEDS ORDERED: diphenhydrAMINE 50 MG/ML 1 ML VIAL IVP STA (13:24)
[2022-01-12] MEDS ORDERED: ONDANSETRON 4 MG/2 ML VIAL IVP STA (13:24)
[2022-01-12 13:50] LABS: Basophils # (A) 0.1 k/uL (0-0.2); Basophils % (A) 1 %; Eosinophils # (A) 0.1 k/uL (0-0.7); Eosinophils % (A) 1 %; HCT 48.7 % (39.0-53.0); Lymphocytes # (A) 1.2 k/uL (1.0-4.8); Lymphocytes % (A) 11 %; MCH 32.5 pg (25.0-35.0); MCHC 32.8 g/dL (31.0-37.0); MCV 99.1 fL (80.0-100.0); Mean Platelet Volume 9.4; Monocytes # (A) 0.6 k/uL (0-1.0); Monocytes % (A) 6 %; Neutrophils % (A) 81 %; Platelet Count 169 k/uL (150-450); RBC 4.91 m/uL (4.30-5.90); RDW 12.3 % (11.5-15.5); WBC 11.1 k/uL (3.8-10.6)
[2022-01-12 14:00] LABS: ALT 17 U/L (4-49); AST 24 U/L (17-59); African American GFR (CKD) >90 (>60 ml/min/1.73 sqM); Albumin 4.7 g/dL (3.5-5.0); Alkaline Phosphatase 49 U/L (38-126); Amorphous Sediment,Urine Rare /hpf; Amylase 52 U/L (30-110); Anion Gap 10 mmol/L; Appearance,Urine Cloudy (Clear); Bacteria,Urine Rare /hpf; Bilirubin,Urine Negative (Negative); Blood Urea Nitrogen 21 mg/dL (9-20); Blood,Urine Negative (Negative); Calcium 9.5 mg/dL (8.4-10.2); Carbon Dioxide 26 mmol/L (22-30); Chloride 102 mmol/L (98-107); Color,Urine Yellow; Glucose 97 mg/dL (74-99); Glucose,Urine (UA) Negative (Negative); INR 1.1 (<1.2); Ketones,Urine 2+ (Negative); Leukocyte Esterase,Urine Negative (Negative); Lipase 61 U/L (23-300); Mucus,Urine Rare /hpf; Nitrite,Urine Negative (Negative); Non-African American GFR(CKD) 80 (>60 ml/min/1.73 sqM); PH, Urine 7.5 (5.0-8.0); Partial Thromboplastin Time 22.6 sec (22.0-30.0); Potassium 4.1 mmol/L (3.5-5.1); Protein,Urine 1+ (Negative); Prothrombin Time 11.9 sec (9.0-12.0); RBC,Urine 5 /hpf (0-5); Sodium 138 mmol/L (137-145); Specific Gravity,Urine 1.031 (1.001-1.035); Squamous Epithelial Cell,Urine <1 /hpf (0-4); Total Bilirubin 1.5 mg/dL (0.2-1.3)
--- NOTE | 2022-01-12 14:16 | XR ---
EXAMINATION TYPE: XR chest 2V DATE OF EXAM: 01/12/2022 1:57 PM COMPARISON:Chest radiographs from 10/10/2019 TECHNIQUE: XR chest 2V Frontal and lateral views of the chest. CLINICAL INDICATION:Male, 51 years old with history of nausea/vomiting; FINDINGS: Lungs/Pleura: There is no evidence of pleural effusion, focal consolidation, or pneumothorax. Pulmonary vascularity: Unremarkable. Heart/mediastinum: Cardiomediastinal silhouette is unremarkable. Musculoskeletal: No acute osseous pathology. IMPRESSION: No acute cardiopulmonary disease/process.
--- NOTE | 2022-01-12 15:03 | ED ---
General Adult HPI - General Source: patient, RN notes reviewed, old records reviewed Mode of arrival: ambulatory Limitations: no limitations <John Tinsley - Last Filed: 01/12/22 15:05> <Milena Joseph - Last Filed: 01/12/22 16:08> - General Chief complaint: Nausea/Vomiting/Diarrhea Stated complaint: revisit - nausea, vomiting Time Seen by Provider: 01/12/22 13:09 - History of Present Illness Initial comments: Patient is a 51-year-old male with past medical history remarkable for intermittent daily alcohol use, gastritis who presents emergency Department complaining of diarrhea, nausea, vomiting. I evaluated the patient yesterday. Workup was unremarkable. He is tolerating oral intake at the time. Was discharged home. He states he was feeling better when at home, however overnight was unable to tolerate a piece toes. Has been having multiple episodes of nonbilious nonbloody emesis as well as dry heaving since then. Still having epigastric and mid abdominal pain. Denies any current diarrhea. Denies any urinary complaints. Repeat presents, as he is having intractable nausea and vomiting as well as recurrent abdominal pain. Does endorse some chest wall discomfort, which she believes is secondary to leaning over the toilet that is when it started. States it is palpable and reproducible when you press sternum. Yesterday EKG and troponin were unremarkable. Presents for reevaluation. (John Tinsley) - Related Data Home Medications Medication Instructions Recorded Confirmed No Known Home Medications 01/11/22 01/12/22 Allergies Allergy/AdvReac Type Severity Reaction Status Date / Time cyclobenzaprine AdvReac AGITATION Verified 01/12/22 14:16 [From Flexeril] Review of Systems ROS Other: All systems not noted in ROS Statement are negative. <John Tinsley - Last Filed: 01/12/22 15:05> ROS Other: All systems not noted in ROS Statement are negative. <Milena Joseph - Last Filed: 01/12/22 16:08> ROS Statement: Those systems with pertinent positive or pertinent negative responses have been documented in the HPI. Review of Systems: CONST: Denies fever EYES: Denies blurry vision ENT: Denies nasal congestion C/V: Denies Chest pain RESP: Denies shortness of breath GI: Endorses abdominal pain : Denies dysuria SKIN: Denies rash. MSK: Denies joint pain. NEURO: Denies headache (John Tinsley) Past Medical History Past Medical History: GERD/Reflux Additional Past Medical History / Comment(s): Diverticulitis, ileitis, gastritis, sinus problems at times. History of Any Multi-Drug Resistant Organisms: None Reported Past Surgical History: Appendectomy, Hernia Repair Additional Past Surgical History / Comment(s): L inguinal hernia repair, EGD. Past Anesthesia/Blood Transfusion Reactions: No Reported Reaction Past Psychological History: No Psychological Hx Reported Smoking Status: Heavy tobacco smoker Past Alcohol Use History: Abuse, Daily, Heavy Past Drug Use History: Opiates, Prescription Drug Abuse - Past Family History Mother Family Medical History: No Reported History Additional Family Medical History / Comment(s): Mother is healthy. Father History Unknown: Yes Family Medical History: No Reported History Additional Family Medical History / Comment(s): Pt states he does not speak to his father so father's medical hx is unknown. <John Tinsley - Last Filed: 01/12/22 15:05> General Exam Limitations: no limitations <John Tinsley - Last Filed: 01/12/22 15:05> - General Exam Comments Initial Comments: General: Appears in no acute distress. HEAD: Normal with no signs of head trauma. EYES: PERRLA, EOMI, conjunctiva normal, no discharge. ENT: Hearing grossly intact, normal oropharynx. Oral mucous membrane appears dry. RESPIRATORY: Clear breath sounds bilaterally. No wheezes, rales, or rhonchi. C/V: Regular rate and rhythm. S1 and S2 auscultated, no edema, peripheral pulses 2+ and intact throughout ABD: Soft, nondistended. Mildly tender to palpation in the epigastric region. No guarding. No peritoneal signs. No rebound tenderness. No CVA tenderness to percussion. EXT: Normal range of motion, no obvious deformity SKIN: No rashes or lesions observed on exposed skin. NEURO: Alert and oriented x 4. Cranial nerves II-XII intact. No focal sensory or strength deficits. (John Tinsley) Course Vital Signs 01/12/22 12:59 Temperature 98.2 F Pulse Rate 63 Respiratory 18 Rate Blood Pressure 151/79 O2 Sat by Pulse 100 Oximetry Medical Decision Making - Lab Data Result diagrams: 01/12/22 13:38 01/12/22 13:38 - EKG Data -: EKG Interpreted by Me <John Tinsley - Last Filed: 01/12/22 15:05> - Lab Data Result diagrams: 01/12/22 13:38 01/12/22 13:38 <Milena Joseph - Last Filed: 01/12/22 16:08> - Medical Decision Making Based on the patient's presentation and physical exam, I'm concerned for acute intra-abdominal process for this patient. We'll repeat abdominal laboratory studies. Screening EKG will be repeated. Patient will receive a CT abdomen and pelvis today as he is really presenting. He was in agreement this plan. He will receive IV fluids as well as GI cocktail. Patient was in agreement this plan. EKG shows no signs of acute ischemia. Laboratory studies were remarkable for mild leukocytosis of 11. Urinalysis is unremarkable except for 2+ ketones. Remainder the labs are unremarkable. Chest x-ray was obtained and revealed no acute cardiopulmonary process. At this time of examination. Patient will likely be admitted. Disposition is pending results of CT imaging. Patient was signed out to Dr. Joseph in stable condition. (John Tinsley) Patient care was signed out to me pending CT results. CT results of no acute findings however given the persistence of patient's symptoms she did feel was a ppropriate to place patient in observation for continuous antiemetics and fluids. Patient was agreeable. Patient care was discussed with [facility] who accepts the patient. (Milena Joseph) - Lab Data Lab Results 01/12/22 01/12/22 01/12/22 Range/Units 13:38 13:38 13:38 WBC 11.1 H (3.8-10.6) k/uL RBC 4.91 (4.30-5.90) m/uL Hgb 16.0 (13.0-17.5) gm/dL Hct 48.7 (39.0-53.0) % MCV 99.1 (80.0-100.0) fL MCH 32.5 (25.0-35.0) pg MCHC 32.8 (31.0-37.0) g/dL RDW 12.3 (11.5-15.5) % Plt Count 169 (150-450) k/uL MPV 9.4 Neutrophils % 81 % Lymphocytes % 11 % Monocytes % 6 % Eosinophils % 1 % Basophils % 1 % Neutrophils # 9.0 H (1.3-7.7) k/uL Lymphocytes # 1.2 (1.0-4.8) k/uL Monocytes # 0.6 (0-1.0) k/uL Eosinophils # 0.1 (0-0.7) k/uL Basophils # 0.1 (0-0.2) k/uL PT (9.0-12.0) sec INR (<1.2) APTT (22.0-30.0) sec Sodium 138 (137-145) mmol/L Potassium 4.1 (3.5-5.1) mmol/L Chloride 102 (98-107) mmol/L Carbon Dioxide 26 (22-30) mmol/L Anion Gap 10 mmol/L BUN 21 H (9-20) mg/dL Creatinine 1.08 (0.66-1.25) mg/dL Est GFR (CKD-EPI)AfAm >90 (>60 ml/min/1.73 sqM) Est GFR (CKD-EPI)NonAf 80 (>60 ml/min/1.73 sqM) Glucose 97 (74-99) mg/dL Plasma Lactic Acid Gordon (0.7-2.0) mmol/L Calcium 9.5 (8.4-10.2) mg/dL Total Bilirubin 1.5 H (0.2-1.3) mg/dL AST 24 (17-59) U/L ALT 17 (4-49) U/L Alkaline Phosphatase 49 (38-126) U/L Total Protein 8.0 (6.3-8.2) g/dL Albumin 4.7 (3.5-5.0) g/dL Amylase 52 (30-110) U/L Lipase 61 (23-300) U/L Urine Color Yellow Urine Appearance Cloudy (Clear) Urine pH 7.5 (5.0-8.0) Ur Specific [place] 1.031 (1.001-1.035) Urine Protein 1+ H (Negative) Urine Glucose (UA) Negative (Negative) Urine Ketones 2+ H (Negative) Urine Blood Negative (Negative) Urine Nitrite Negative (Negative) Urine Bilirubin Negative (Negative) Urine Urobilinogen 2.0 (<2.0) mg/dL Ur Leukocyte Esterase Negative (Negative) Urine RBC 5 (0-5) /hpf Ur Squamous Epith Cells <1 (0-4) /hpf Amorphous Sediment Rare H (None) /hpf Urine Bacteria Rare H (None) /hpf Urine Mucus Rare H (None) /hpf 01/12/22 01/12/22 Range/Units 13:38 13:38 WBC (3.8-10.6) k/uL RBC (4.30-5.90) m/uL Hgb (13.0-17.5) gm/dL Hct (39.0-53.0) % MCV (80.0-100.0) fL MCH (25.0-35.0) pg MCHC (31.0-37.0) g/dL RDW (11.5-15.5) % Plt Count (150-450) k/uL MPV Neutrophils % % Lymphocytes % % Monocytes % % Eosinophils % % Basophils % % Neutrophils # (1.3-7.7) k/uL Lymphocytes # (1.0-4.8) k/uL Monocytes # (0-1.0) k/uL Eosinophils # (0-0.7) k/uL Basophils # (0-0.2) k/uL PT 11.9 (9.0-12.0) sec INR 1.1 (<1.2) APTT 22.6 (22.0-30.0) sec Sodium (137-145) mmol/L Potassium (3.5-5.1) mmol/L Chloride (98-107) mmol/L Carbon Dioxide (22-30) mmol/L Anion Gap mmol/L BUN (9-20) mg/dL Creatinine (0.66-1.25) mg/dL Est GFR (CKD-EPI)AfAm (>60 ml/min/1.73 sqM) Est GFR (CKD-EPI)NonAf (>60 ml/min/1.73 sqM) Glucose (74-99) mg/dL Plasma Lactic Acid Gordon 1.1 (0.7-2.0) mmol/L Calcium (8.4-10.2) mg/dL Total Bilirubin (0.2-1.3) mg/dL AST (17-59) U/L ALT (4-49) U/L Alkaline Phosphatase (38-126) U/L Total Protein (6.3-8.2) g/dL Albumin (3.5-5.0) g/dL Amylase (30-110) U/L Lipase (23-300) U/L Urine Color Urine Appearance (Clear) Urine pH (5.0-8.0) Ur Specific [place] (1.001-1.035) Urine Protein (Negative) Urine Glucose (UA) (Negative) Urine Ketones (Negative) Urine Blood (Negative) Urine Nitrite (Negative) Urine Bilirubin (Negative) Urine Urobilinogen (<2.0) mg/dL Ur Leukocyte Esterase (Negative) Urine RBC (0-5) /hpf Ur Squamous Epith Cells (0-4) /hpf Amorphous Sediment (None) /hpf Urine Bacteria (None) /hpf Urine Mucus (None) /hpf - EKG Data EKG Comments: 12-lead Electrocardiogram Interpretation Note EKG was reviewed and interpreted by myself. 12-lead ECG performed at 1500 is interpreted by me as revealing normal sinus rhythm at a rate of 50 beats per minute. [place] is normal. MO interval is 161 ms, QRS duration 74 ms, QTc is 445 ms. There are chronic T wave inversions in the lateral precordial leads which were seen yesterday as well as prior EKGs before yesterday.. There were no acute ST or T wave abnormalities to suggest myocardial ischemia or injury. R wave progression across the precordium was satisfactory. By my interpretation this EKG is non-diagnostic for acute ischemia. EKG shows chronic T wave in versions in lateral precordial leads. (John Tinsley) Disposition <John Tinsley - Last Filed: 01/12/22 15:05> <Milena Joseph - Last Filed: 01/12/22 16:08> Clinical Impression: Abdominal pain, Intractable nausea and vomiting Disposition: ADMITTED IP TO THIS HOSP Condition: Stable Referrals: None,Stated [Primary Care Provider] - 1-2 days
--- NOTE | 2022-01-12 15:06 | CT ---
EXAMINATION TYPE: CT abdomen pelvis w con DATE OF EXAM: 01/12/2022 COMPARISON: 07/15/2018 HISTORY: abdominal pain, weight loss, vomiting, nausea CT DLP: 557.8 mGycm Automated exposure control for dose reduction was used. CONTRAST: Performed with IV Contrast, patient injected with 100 mL of Isovue 300. Images obtained from the diaphragm to the floor of the pelvis with IV contrast. Lung bases are clear. There is no pleural effusion. Heart size is normal. There is no pericardial eff usion. Liver spleen and stomach pancreas and gallbladder appear normal. The bile ducts are nondilated. There is no adrenal mass. Kidneys show satisfactory contrast opacification. There is no hydronephrosi s. Delayed images show normal renal excretion. There is no retroperitoneal adenopathy. Ureters are no t dilated. The bladder distends smoothly. There is no inguinal hernia. No free fluid in the pelvis. There is no mesenteric edema. No ascites or free air. No sign of a bowel obstruction. Appendix not se en. No sign of thickened appendix. The lumbar vertebrae have normal alignment. No compression fracture. Posterior elements are intact. B antonette pelvis is intact. Hip joints appear intact. Sacroiliac joints are normal. IMPRESSION: Negative CT scan abdomen and pelvis. No adverse change compared to old exam.
[2022-01-12] MEDS ORDERED: NALOXONE 0.4 MG/ML 1 ML VIAL IV PRN ×2 (16:01→17:06)
[2022-01-12] MEDS ORDERED: ONDANSETRON 4 MG/2 ML VIAL IVP PRN (17:06)
[2022-01-12] MEDS ORDERED: MORPHINE SULFATE 4 MG/ML SYRINGE IVP PRN (17:06)
[2022-01-12] MEDS ORDERED: HYDROcodone/APAP 5-325MG 1 EACH TAB PO PRN (17:06)
[2022-01-12] MEDS ORDERED: LORazepam 2 MG/ML INJ IV PRN (17:06)
[2022-01-12] MEDS ORDERED: LOPERAMIDE 2 MG CAP PO PRN (17:06)
[2022-01-12] MEDS ORDERED: PROMETHAZINE 25 MG TAB PO PRN (17:06)
--- NOTE | 2022-01-12 17:16 | P.HPIM ---
History of Present Illness Chief Complaint: Intractable nausea and vomiting Patient is a 51-year-old male with past medical history remarkable for intermittent daily alcohol use, gastritis who presents emergency Department complaining of diarrhea, nausea, vomiting. Patient was evaluated yesterday in the emergency room. Workup was unremarkable. He is tolerating oral intake at the time. Was discharged home. He states he was feeling better when at home, however overnight was unable to tolerate a piece toes. Has been having multiple episodes of nonbilious nonbloody emesis as well as dry heaving since then. Still having epigastric and mid abdominal pain was described as 7 out of 10. Denies any current diarrhea. Denies any urinary complaints. Repeat presents, as he is having intractable nausea and vomiting as well as recurrent abdominal pain. Patient denies any chest pain or shortness of breath. Review of Systems All 14 review of systems evaluated and all negative except for above. Past Medical History Past Medical History: GERD/Reflux Additional Past Medical History / Comment(s): Diverticulitis, ileitis, gastritis, sinus problems at times. History of Any Multi-Drug Resistant Organisms: None Reported Past Surgical History: Appendectomy, Hernia Repair Additional Past Surgical History / Comment(s): L inguinal hernia repair, EGD. Past Anesthesia/Blood Transfusion Reactions: No Reported Reaction Past Psychological History: No Psychological Hx Reported Smoking Status: Heavy tobacco smoker Past Alcohol Use History: Abuse, Daily, Heavy Past Drug Use History: Opiates, Prescription Drug Abuse - Past Family History Mother Family Medical History: No Reported History Additional Family Medical History / Comment(s): Mother is healthy. Father History Unknown: Yes Family Medical History: No Reported History Additional Family Medical History / Comment(s): Pt states he does not speak to his father so father's medical hx is unknown. Medications and Allergies Home Medications Medication Instructions Recorded Confirmed Type No Known Home Medications 01/11/22 01/12/22 History Allergies Allergy/AdvReac Type Severity Reaction Status Date / Time cyclobenzaprine AdvReac AGITATION Verified 01/12/22 14:16 [From Flexeril] Physical Exam Vitals: Vital Signs Temp Pulse Resp BP Pulse Ox 01/12/22 16:01 88 18 144/77 98 01/12/22 12:59 98.2 F 63 18 151/79 100 Intake and Output 01/12/22 01/12/22 01/12/22 06:59 14:59 22:59 Other: Weight 65.317 kg General: non toxic, no distress, appears older than his stated age. Derm: warm, dry Head: atraumatic, normocephalic, symmetric Eyes: EOMI, no lid lag, anicteric sclera Mouth: no lip lesion, mucus membranes moist Cardiovascular: S1S2 reg, no murmur, positive posterior tibial pulse bilateral, Lungs: CTA bilateral, no rhonchi, no rales , no accessory muscle use Abdominal: soft, epigastrium to deep palpation, no guarding, no appreciable organomegaly Ext: no gross muscle atrophy, no edema, no contractures Neuro: CN II-XI grossly intact, no focal neuro deficits Psych: Alert, oriented, appropriate affect Results CBC & Chem 7: 01/12/22 13:38 01/12/22 13:38 Labs: Abnormal Lab Results - Last 24 Hours (Table) 01/12/22 01/12/22 01/12/22 Range/Units 13:38 13:38 13:38 WBC 11.1 H (3.8-10.6) k/uL Neutrophils # 9.0 H (1.3-7.7) k/uL BUN 21 H (9-20) mg/dL Total Bilirubin 1.5 H (0.2-1.3) mg/dL Urine Protein 1+ H (Negative) Urine Ketones 2+ H (Negative) Amorphous Sediment Rare H (None) /hpf Urine Bacteria Rare H (None) /hpf Urine Mucus Rare H (None) /hpf Assessment and Plan Assessment: Assessment and plan: #Intractable nausea vomiting secondary to alcoholic gastritis -Possible mild alcohol related pancreatitis -Patient denies any hematemesis or coffee-ground emesis -Clear Liquid diet -IV Protonix 40 mg twice daily -When necessary antiemetics -IV fluids #Alcohol abuse -Last drink was over a week ago -Patient denied any history of withdrawal -Patient was counseled regarding a consultation #Tobacco abuse -Patient chewing tobacco #DVT prophylaxis SCDs and ambulate the patient #Full code
[2022-01-12] MEDS: PANTOPRAZOLE 40 MG/10 ML VIAL IVP SCH (19:08)
[2022-01-12] MEDS ORDERED: MELATONIN 3 MG TABLET PO PRN (21:00)
[2022-01-13 07:19] VITALS: RESP 15
[2022-01-13] MEDS: PANTOPRAZOLE 40 MG/10 ML VIAL IVP SCH (08:02)
[2022-01-13] MEDS: NICOTINE 14MG/24HR PATCH TRANSDERM SCH ×2 (08:02→08:05)
[2022-01-13 11:45] LABS: African American GFR (CKD) 101.4 (60.0-200.0); Albumin 3.9 g/dL (3.8-4.9); Albumin/Globulin Ratio 1.98 (1.60-3.17); Anion Gap 9.1 mmol/L (10.00-18.00); BUN/Creat Ratio 14.61 Ratio (12.00-20.00); Blood Urea Nitrogen 14.6 mg/dL (9.0-27.0); Calcium 8.8 mg/dL (8.7-10.3); Carbon Dioxide 23.2 mmol/L (20.0-27.5); Non-African American GFR(CKD) 87.5 (60.0-200.0); Potassium 3.9 mmol/L (3.5-5.5); Total Bilirubin 0.9 mg/dL (0.30-1.20); Total Protein 5.8 g/dL (6.2-8.2)
[2022-01-13 12:38] LABS: Basophils # (A) 0.07 X 10*3/uL (0.00-0.10); Basophils % (A) 0.9 %; Eosinophils # (A) 0.09 X 10*3/uL (0.04-0.35); Eosinophils % (A) 1.2 %; HGB 13.5 g/dL (13.0-17.0); Immature Grans, Automated 0.1 %; Lymphocytes # (A) 1.87 X 10*3/uL (0.90-5.00); Lymphocytes % (A) 24.5 %; MCH 32.5 pg (27.0-32.0); MCHC 32.9 g/dL (32.0-37.0); MCV 98.8 fL (80.0-97.0); Mean Platelet Volume 11.7 fL (9.5-12.2); Monocytes # (A) 0.67 X 10*3/uL (0.20-1.00); Monocytes % (A) 8.8 %; NRBC Per 100 WBC 0 /100 WBCS (0.0-0.0); Neutrophils # (A) 4.92 X 10*3/uL (1.80-7.70); Neutrophils % (A) 64.5 %; Platelet Count 141 X 10*3/uL (140-440); RBC 4.15 X 10*6/uL (4.40-5.60); RDW 12.9 % (11.5-14.5); WBC 7.63 X 10*3/uL (4.50-10.00)
[2022-01-13 13:40] LABS: T4, Free (Free Thyroxine) 1.62 ng/dL (0.78-2.19)
[2022-01-13 14:01] VITALS: BP 96/65; PULSE 72; TEMP 98.6
--- NOTE | 2022-01-13 17:28 | P.DS ---
Providers Date of admission: 01/12/22 16:01 Attending physician: Ruthie Gore MD Primary care physician: Stated None Hospital Course: History of Present Illness Chief Complaint: Intractable nausea and vomiting Patient is a 51-year-old male with past medical history remarkable for intermittent daily alcohol use, gastritis who presents emergency Department complaining of diarrhea, nausea, vomiting. Patient was evaluated yesterday in the emergency room. Workup was unremarkable. He is tolerating oral intake at the time. Was discharged home. He states he was feeling better when at home, however overnight was unable to tolerate a piece toes. Has been having multiple episodes of nonbilious nonbloody emesis as well as dry heaving since then. Still having epigastric and mid abdominal pain was described as 7 out of 10. Denies any current diarrhea. Denies any urinary complaints. Repeat presents, as he is having intractable nausea and vomiting as well as recurrent abdominal pain. Patient denies any chest pain or shortness of breath. Physical examination on discharge: General: non toxic, no distress, appears older than his stated age. Derm: warm, dry Head: atraumatic, normocephalic, symmetric Eyes: EOMI, no lid lag, anicteric sclera Mouth: no lip lesion, mucus membranes moist Cardiovascular: S1S2 reg, no murmur, positive posterior tibial pulse bilateral, Lungs: CTA bilateral, no rhonchi, no rales , no accessory muscle use Abdominal: soft, epigastrium to deep palpation, no guarding, no appreciable organomegaly Ext: no gross muscle atrophy, no edema, no contractures Neuro: CN II-XI grossly intact, no focal neuro deficits Psych: Alert, oriented, appropriate affect Hospital course in detail the problems: #Intractable nausea vomiting secondary to alcoholic gastritis -Possible mild alcohol related pancreatitis -Symptoms resolved -Patient is feeling better today -Patient denies any hematemesis or coffee-ground emesis -That was advanced to regular diet today and if still elevated -Discharge the patient home on Protonix 40 mg daily and when necessary as needed Zofran -Patient is being discharged home for a stable condition. #Alcohol abuse -Last drink was over a week ago -Patient denied any history of withdrawal -Patient was counseled regarding a consultation #Tobacco abuse -Patient chewing tobacco Patient Condition at Discharge: Stable Plan - Discharge Summary New Discharge Prescriptions: New Ondansetron [Zofran ODT] 4 mg PO Q8HR PRN #12 tab PRN Reason: Nausea And Vomiting Pantoprazole [Protonix] 40 mg PO DAILY 30 Days #30 tab Discharge Medication List Ondansetron [Zofran ODT] 4 mg PO Q8HR PRN #12 tab 01/13/22 [Rx] Pantoprazole [Protonix] 40 mg PO DAILY 30 Days #30 tab 01/13/22 [Rx] Follow up Appointment(s)/Referral(s): None,Stated [Primary Care Provider] - 1-2 days Discharge Disposition: HOME SELF-CARE
== END 2022-01-13 20:00 | disposition home or self-care (01) ==
LOC: EC 12:36 → 6NMEDSUR 16:01
PROVIDERS: ADMIT Hospitalist; ATTEND Hospitalist
DX: K29.20 Alcoholic gastritis without bleeding (principal); F10.10 Alcohol abuse, uncomplicated; K21.9 Gastro-esophageal reflux disease without esophagitis; K57.90 Diverticulosis of intestine, part unspecified, without perforation or abscess without bleeding; F17.220 Nicotine dependence, chewing tobacco, uncomplicated; Z88.8 Allergy status to other drugs, medicaments and biological substances; Z90.49 Acquired absence of other specified parts of digestive tract; Z98.890 Other specified postprocedural states
CPT/HCPCS: 96376 ×2; 96361 ×3; 96374; 96375; 99285; 36415; 93005; 84439; 80053 ×2; 84443; 82150; 83605; 83690 ×2; 84484; 85025 ×2; 85610; 85730; 81001; 71046; 74177; G0378 ×2; J2270; J1200; J2405; C9113 ×2; Q9967

== ENCOUNTER 2023-06-13 17:01 | Emergency (ER) | payer OTHER ==
[2023-06-13 17:58] VITALS: TEMP 98.1
[2023-06-13] MEDS ORDERED: SODIUM CHLORIDE 0.9% 1,000 ML IV STA ×2 (20:13)
[2023-06-13] MEDS ORDERED: SODIUM CHLORIDE 0.9% 500 ML 500 ML IV STA (20:13)
--- NOTE | 2023-06-13 20:30 | ED ---
Nausea/Vomiting/Diarrhea HPI - General Chief complaint: Nausea/Vomiting/Diarrhea Stated complaint: VOMITING Time Seen by Provider: 06/13/23 18:41 Source: patient, RN notes reviewed, old records reviewed Mode of arrival: ambulatory Limitations: no limitations - History of Present Illness Initial comments: This is a 52-year-old male to the emergency department for evaluation today. Patient is well-known to this emergency prior for evaluation nausea vomiting nausea vomiting weakness occasional abdominal pain. Multiple hospital admissions in the past for similar. Patient continues to state that he does not feel well but unable to provide any history. Patient at this time actually denies current abdominal pain. No travel show sick contacts no fevers. MD complaint: nausea, vomiting, abdominal pain -: hour(s) Associated Abdominal Pain: Yes Location: diffuse Radiation: none Quality: constant Improves with: none - Related Data Previous Rx's Medication Instructions Recorded Pantoprazole [Protonix] 40 mg PO DAILY #60 tab 06/16/23 Thiamine [Vitamin B-1] 100 mg PO DAILY #60 tab 06/16/23 Allergies Allergy/AdvReac Type Severity Reaction Status Date / Time cyclobenzaprine AdvReac AGITATION Verified 06/15/23 16:18 [From Flexeril] Review of Systems ROS Statement: Those systems with pertinent positive or pertinent negative responses have been documented in the HPI. ROS Other: All systems not noted in ROS Statement are negative. Past Medical History Past Medical History: GERD/Reflux Additional Past Medical History / Comment(s): Diverticulitis, ileitis, gastritis, sinus problems at times. History of Any Multi-Drug Resistant Organisms: None Reported Past Surgical History: Appendectomy, Hernia Repair Additional Past Surgical History / Comment(s): L inguinal hernia repair, EGD. Past Anesthesia/Blood Transfusion Reactions: No Reported Reaction Past Psychological History: No Psychological Hx Reported Smoking Status: Former smoker Past Alcohol Use History: Abuse, Daily, Heavy Past Drug Use History: Opiates, Prescription Drug Abuse - Past Family History Mother Family Medical History: No Reported History Additional Family Medical History / Comment(s): Mother is healthy. Father History Unknown: Yes Family Medical History: No Reported History Additional Family Medical History / Comment(s): Pt states he does not speak to his father so father's medical hx is unknown. General Exam Limitations: no limitations General appearance: alert, in no apparent distress, anxious Head exam: Present: atraumatic, normocephalic, normal inspection Eye exam: Present: normal appearance, PERRL, EOMI. Absent: scleral icterus, conjunctival injection, periorbital swelling ENT exam: Present: normal exam, mucous membranes moist Neck exam: Present: normal inspection. Absent: tenderness, meningismus, lymphadenopathy Respiratory exam: Present: normal lung sounds bilaterally. Absent: respiratory distress, wheezes, rales, rhonchi, stridor Cardiovascular Exam: Present: regular rate, normal rhythm, normal heart sounds. Absent: systolic murmur, diastolic murmur, rubs, gallop, clicks GI/Abdominal exam: Present: soft, normal bowel sounds. Absent: distended, tenderness, guarding, rebound, rigid Extremities exam: Present: normal inspection, full ROM, normal capillary refill. Absent: tenderness, pedal edema, joint swelling, calf tenderness Back exam: Present: normal inspection Neurological exam: Present: alert, oriented X3, CN II-XII intact Psychiatric exam: Present: normal affect, normal mood Skin exam: Present: warm, dry, intact, normal color. Absent: rash Course Vital Signs 06/13/23 06/13/23 06/13/23 17:55 23:25 23:50 Temperature 98.1 F Pulse Rate 68 61 56 L Respiratory 18 16 20 Rate Blood Pressure 126/88 99/73 100/73 O2 Sat by Pulse 99 97 98 Oximetry - Reevaluation(s) Reevaluation #1: 06/13/23 23:25 Medical records reviewed Reevaluation #2: 06/13/23 23:25 Patient symptoms are improving Reevaluation #3: 06/13/23 23:26 Patient informed of results and questions are answered Reevaluation #4: 06/13/23 23:26 Was pt. sent in by a medical professional or institution (, PA, AEROSPACE ENGINEER OFFICER [employer]ENT, urgent care, hospital, or [facility]...) When possible be specific @ -no Did you speak to anyone other than the patient for history (EMS, parent, family, police, friend...)? What history was obtained from this source @ -no Did you review nursing and triage notes (agree or disagree)? Why? @ -agree Are old charts reviewed (outside hosp., previous admission, EMS record, old EKG, old radiological studies, urgent care reports/EKG's, [facility] records)? Report findings @ -yes Differential Diagnosis (chest pain, altered mental status, abdominal pain women, abdominal pain men, vaginal bleeding, weakness, fever, dyspnea, syncope, headache, dizziness, GI bleed, back pain, seizure, CVA, palpatations, mental health, musculoskeletal)? @ -prior EKG interpreted by me (3pts min.). @ -yes X-rays interpreted by me (1pt min.). @ -no CT interpreted by me (1pt min.). @ -no U/S interpreted by me (1pt. min.). @ -no What testing was considered but not performed or refused? (CT, X-rays, U/S, labs)? Why? @ -none What meds were considered but not given or refused? Why? @ -none Did you discuss the management of the patient with other professionals (professionals i.e. , PA, AEROSPACE ENGINEER OFFICER [employer], lab, RT, psych nurse, manager social, construction flagger, teacher, loan review officer, case technician)? Give summary @ -no Was smoking cessation discussed for >3mins.? @ -no Was critical care preformed (if so, how long)? @ -no Were there social determinants of health that impacted care today? How? (Homelessness, low income, unemployed, alcoholism, drug addiction, transportation, low edu. Level, literacy, decrease access to med. care, long term, rehab)? @ -none Was there de-escalation of care discussed even if they declined (Discuss DNR or withdrawal of care, Hospice)? DNR status @ -no What co-morbidities impacted this encounter? (DM, HTN, Smoking, COPD, CAD, Cancer, CVA, ARF, Chemo, Hep., AIDS, mental health diagnosis, sleep apnea, morbid obesity)? @ -none Was patient admitted / discharged? Hospital course, mention meds given and route, prescriptions, significant lab abnormalities, going to OR and other pertinent info. @ - 52 male to the emergency department for evaluation of abdominal pain nausea vomiting weakness not feeling well. Patient will be discharged home as he is currently feeling well Discharge Undiagnosed new problem with uncertain prognosis? @ -no Drug Therapy requiring intensive monitoring for toxicity (Heparin, Nitro, Insulin, Cardizem)? @ -no Were any procedures done? @ -no Diagnosis/symptom? @ -Abdominal pain nausea vomiting weakness dehydration Acute, or Chronic, or Acute on Chronic? @ -Acute Uncomplicated (without systemic symptoms) or Complicated (systemic symptoms)? @ -Complicated Side effects of treatment? @ -no Exacerbation, Progression, or Severe Exacerbation? @ -exacerbation Poses a threat to life or bodily function? How? (Chest pain, USA, [place], pneumonia, PE, COPD, DKA, ARF, appy, cholecystitis, CVA, Diverticulitis, Homicidal, Suicidal, threat to staff... and all critical care pts) @ -no Reevaluation #5: 06/13/23 23:26 Differential Abdominal Pain Men: Appendicitis, cholecystitis, diverticulosis, ischemic bowel, pancreatitis, hepatitis, UTI, gastroenteritis, AAA, incarcerated hernia, bowel obstruction, constipation, inflammatory bowel, hepatitis, peptic ulcer disease, splenic infarction, perforated viscus, testicular torsion, this is not meant to be an all-inclusive list Medical Decision Making - Medical Decision Making 52 male to the emergency department for evaluation of abdominal pain nausea vomiting weakness not feeling well. Patient will be discharged home as he is currently feeling well - Lab Data Result diagrams: 06/13/23 20:19 06/13/23 20:19 Lab Results 06/13/23 06/13/23 06/13/23 Range/Units 20:19 20:19 20:19 WBC 14.5 H (3.8-10.6) k/uL RBC 4.27 L (4.30-5.90) m/uL Hgb 14.4 (13.0-17.5) gm/dL Hct 43.9 (39.0-53.0) % MCV 102.8 H (80.0-100.0) fL MCH 33.7 (25.0-35.0) pg MCHC 32.8 (31.0-37.0) g/dL RDW 12.8 (11.5-15.5) % Plt Count 202 (150-450) k/uL MPV 10.1 Neutrophils % 85 % Lymphocytes % 7 % Monocytes % 6 % Eosinophils % 1 % Basophils % 0 % Neutrophils # 12.3 H (1.3-7.7) k/uL Lymphocytes # 1.0 (1.0-4.8) k/uL Monocytes # 0.9 (0-1.0) k/uL Eosinophils # 0.2 (0-0.7) k/uL Basophils # 0.0 (0-0.2) k/uL Macrocytosis Slight PT 12.1 H (9.0-12.0) sec INR 1.2 H (<1.2) APTT 21.6 L (22.0-30.0) sec Sodium 141 (137-145) mmol/L Potassium 3.9 (3.5-5.1) mmol/L Chloride 107 (98-107) mmol/L Carbon Dioxide 24 (22-30) mmol/L Anion Gap 10 mmol/L BUN 22 H (9-20) mg/dL Creatinine 1.01 (0.66-1.25) mg/dL Est GFR (CKD-EPI)AfAm >90 (>60 ml/min/1.73 sqM) Est GFR (CKD-EPI)NonAf 86 (>60 ml/min/1.73 sqM) Glucose 110 H (74-99) mg/dL Plasma Lactic Acid Gordon (0.7-2.0) mmol/L Calcium 10.4 H (8.4-10.2) mg/dL Phosphorus 3.7 (2.5-4.5) mg/dL Magnesium 2.5 H (1.6-2.3) mg/dL Total Bilirubin 0.9 (0.2-1.3) mg/dL AST 27 (17-59) U/L ALT 20 (4-49) U/L Alkaline Phosphatase 55 (38-126) U/L Troponin I (0.000-0.034) ng/mL NT-Pro-B Natriuret Pep 392 pg/mL Total Protein 8.1 (6.3-8.2) g/dL Albumin 5.0 (3.5-5.0) g/dL TSH 0.626 (0.465-4.680) mIU/L Urine Color Urine Appearance (Clear) Urine pH (5.0-8.0) Ur Specific [place] (1.001-1.035) Urine Protein (Negative) Urine Glucose (UA) (Negative) Urine Ketones (Negative) Urine Blood (Negative) Urine Nitrite (Negative) Urine Bilirubin (Negative) Urine Urobilinogen (<2.0) mg/dL Ur Leukocyte Esterase (Negative) Urine RBC (0-5) /hpf Urine WBC (0-5) /hpf Ur Squamous Epith Cells (0-4) /hpf Amorphous Sediment (None) /hpf Hyaline Casts (0-2) /lpf Urine Mucus (None) /hpf Serum Alcohol <10 mg/dL 06/13/23 06/13/23 06/13/23 Range/Units 20:19 20:19 20:19 WBC (3.8-10.6) k/uL RBC (4.30-5.90) m/uL Hgb (13.0-17.5) gm/dL Hct (39.0-53.0) % MCV (80.0-100.0) fL MCH (25.0-35.0) pg MCHC (31.0-37.0) g/dL RDW (11.5-15.5) % Plt Count (150-450) k/uL MPV Neutrophils % % Lymphocytes % % Monocytes % % Eosinophils % % Basophils % % Neutrophils # (1.3-7.7) k/uL Lymphocytes # (1.0-4.8) k/uL Monocytes # (0-1.0) k/uL Eosinophils # (0-0.7) k/uL Basophils # (0-0.2) k/uL Macrocytosis PT (9.0-12.0) sec INR (<1.2) APTT (22.0-30.0) sec Sodium (137-145) mmol/L Potassium (3.5-5.1) mmol/L Chloride (98-107) mmol/L Carbon Dioxide (22-30) mmol/L Anion Gap mmol/L BUN (9-20) mg/dL Creatinine (0.66-1.25) mg/dL Est GFR (CKD-EPI)AfAm (>60 ml/min/1.73 sqM) Est GFR (CKD-EPI)NonAf (>60 ml/min/1.73 sqM) Glucose (74-99) mg/dL Plasma Lactic Acid Gordon 1.4 (0.7-2.0) mmol/L Calcium (8.4-10.2) mg/dL Phosphorus (2.5-4.5) mg/dL Magnesium (1.6-2.3) mg/dL Total Bilirubin (0.2-1.3) mg/dL AST (17-59) U/L ALT (4-49) U/L Alkaline Phosphatase (38-126) U/L Troponin I <0.012 (0.000-0.034) ng/mL NT-Pro-B Natriuret Pep pg/mL Total Protein (6.3-8.2) g/dL Albumin (3.5-5.0) g/dL TSH (0.465-4.680) mIU/L Urine Color Yellow Urine Appearance Clear (Clear) Urine pH 6.0 (5.0-8.0) Ur Specific [place] 1.031 (1.001-1.035) Urine Protein 1+ H (Negative) Urine Glucose (UA) Negative (Negative) Urine Ketones 1+ H (Negative) Urine Blood Small H (Negative) Urine Nitrite Negative (Negative) Urine Bilirubin Negative (Negative) Urine Urobilinogen <2.0 (<2.0) mg/dL Ur Leukocyte Esterase Negative (Negative) Urine RBC 4 (0-5) /hpf Urine WBC 3 (0-5) /hpf Ur Squamous Epith Cells <1 (0-4) /hpf Amorphous Sediment Rare H (None) /hpf Hyaline Casts 3 H (0-2) /lpf Urine Mucus Few H (None) /hpf Serum Alcohol mg/dL - EKG Data -: EKG Interpreted by Me (EKG is sinus bradycardia 44 [place] 160 QRS 82 QTC 428) Disposition Clinical Impression: Abdominal pain, Leukocytosis, Dehydration, Gastroenteritis, Weakness Disposition: HOME SELF-CARE Condition: Fair Instructions (If sedation given, give patient instructions): Acute Nausea and Vomiting (ED), Acute Diarrhea (ED), Abdominal Pain (ED) Is patient prescribed a controlled substance at d/c from ED?: No Referrals: None,Stated [Primary Care Provider] - 1-2 days Time of Disposition: 22:30
[2023-06-13 20:42] LABS: Basophils % (A) 0 %; Eosinophils # (A) 0.2 k/uL (0-0.7); Eosinophils % (A) 1 %; HCT 43.9 % (39.0-53.0); HGB 14.4 gm/dL (13.0-17.5); Lymphocytes % (A) 7 %; MCH 33.7 pg (25.0-35.0); MCHC 32.8 g/dL (31.0-37.0); MCV 102.8 fL (80.0-100.0); Macrocytosis Slight; Mean Platelet Volume 10.1; Monocytes # (A) 0.9 k/uL (0-1.0); Monocytes % (A) 6 %; Neutrophils # (A) 12.3 k/uL (1.3-7.7); Neutrophils % (A) 85 %; Platelet Count 202 k/uL (150-450); RBC 4.27 m/uL (4.30-5.90); RDW 12.8 % (11.5-15.5); WBC 14.5 k/uL (3.8-10.6)
[2023-06-13 20:58] LABS: ALT 20 U/L (4-49); AST 27 U/L (17-59); African American GFR (CKD) >90 (>60 ml/min/1.73 sqM); Alcohol <10 mg/dL; Alkaline Phosphatase 55 U/L (38-126); Anion Gap 10 mmol/L; Blood Urea Nitrogen 22 mg/dL (9-20); Calcium 10.4 mg/dL (8.4-10.2); Carbon Dioxide 24 mmol/L (22-30); Chloride 107 mmol/L (98-107); Glucose 110 mg/dL (74-99); Magnesium 2.5 mg/dL (1.6-2.3); Non-African American GFR(CKD) 86 (>60 ml/min/1.73 sqM); Phosphorus 3.7 mg/dL (2.5-4.5); Potassium 3.9 mmol/L (3.5-5.1); Sodium 141 mmol/L (137-145); Total Bilirubin 0.9 mg/dL (0.2-1.3); Total Protein 8.1 g/dL (6.3-8.2)
[2023-06-13 21:00] LABS: INR 1.2 (<1.2); Prothrombin Time 12.1 sec (9.0-12.0)
[2023-06-13 21:05] LABS: NT-Pro-B-Type Natriuretic Pept 392 pg/mL
[2023-06-13 21:10] LABS: Partial Thromboplastin Time 21.6 sec (22.0-30.0)
[2023-06-13] MEDS ORDERED: MORPHINE SULFATE 4 MG/ML SYRINGE IVP STA (22:33)
[2023-06-13] MEDS ORDERED: LORazepam 2 MG/ML INJ IV STA (22:33)
[2023-06-13] MEDS ORDERED: PROCHLORPERAZINE INJ 10 MG/2 ML VIAL IVP STA (22:33)
[2023-06-13 22:48] LABS: Amorphous Sediment,Urine Rare /hpf; Appearance,Urine Clear (Clear); Bilirubin,Urine Negative (Negative); Blood,Urine Small (Negative); Color,Urine Yellow; Glucose,Urine (UA) Negative (Negative); Hyaline Casts,Urine 3 /lpf (0-2); Ketones,Urine 1+ (Negative); Leukocyte Esterase,Urine Negative (Negative); Mucus,Urine Few /hpf; Nitrite,Urine Negative (Negative); Protein,Urine 1+ (Negative); RBC,Urine 4 /hpf (0-5); Specific Gravity,Urine 1.031 (1.001-1.035); Squamous Epithelial Cell,Urine <1 /hpf (0-4); Urobilinogen,Urine <2.0 mg/dL (<2.0); WBC,Urine 3 /hpf (0-5)
[2023-06-13] MEDS ORDERED: SODIUM CHLORIDE 0.9% 500 ML 500 ML IV ONE (23:23)
[2023-06-13 23:51] VITALS: BP 100/73; PULSE 56; RESP 20
== END 2023-06-13 23:51 | disposition home or self-care (01) ==
LOC: EC 17:01
DX: D72.829 Elevated white blood cell count, unspecified (principal); E86.0 Dehydration; K52.9 Noninfective gastroenteritis and colitis, unspecified; R53.1 Weakness; R00.1 Bradycardia, unspecified; F11.90 Opioid use, unspecified, uncomplicated; Z87.891 Personal history of nicotine dependence; Z88.8 Allergy status to other drugs, medicaments and biological substances; Z90.49 Acquired absence of other specified parts of digestive tract
CPT/HCPCS: 36415; 93005; 83880; 80053; 83605; 83735; 84100; 84443; 84484; 85025; 85610; 85730; 81001; 99284; 96374; 96375 ×2; 96361; G0480; J2060; J2270; J0780; 80320

== ENCOUNTER 2023-06-15 10:52 | Observation (INO) | payer OTHER ==
[2023-06-15] MEDS ORDERED: DICYCLOMINE 10 MG/ML 2 ML AMP IM STA (11:20)
[2023-06-15] MEDS ORDERED: SODIUM CHLORIDE 0.9% 1,000 ML IV STA (11:20)
[2023-06-15] MEDS ORDERED: SODIUM CHLORIDE 0.9% 500 ML 500 ML IV STA (11:20)
[2023-06-15] MEDS ORDERED: ONDANSETRON 4 MG/2 ML VIAL IVP STA (11:20)
[2023-06-15] MEDS ORDERED: FAMOTIDINE 20 MG/2 ML VIAL IV STA (11:20)
--- NOTE | 2023-06-15 11:24 | ED ---
General Adult HPI - General Chief complaint: Nausea/Vomiting/Diarrhea Stated complaint: Nausea and vomiting Time Seen by Provider: 06/15/23 10:55 Source: patient, EMS, RN notes reviewed Mode of arrival: EMS Limitations: no limitations - History of Present Illness Initial comments: Patient is a pleasant 52-year-old male presenting to the emergency department with concerns for nausea vomiting diarrhea. Onset of symptoms was around 3 days ago. Patient does have history of similar symptoms previously. Patient denies any abdominal pain and states there is a little bit of discomfort. Patient states he stopped drinking alcohol over a week ago. Patient is having more than 4 episodes a day each of vomiting and diarrhea. - Related Data Previous Rx's Medication Instructions Recorded Ondansetron [Zofran ODT] 4 mg PO Q8HR PRN #12 tab 01/13/22 Pantoprazole [Protonix] 40 mg PO DAILY 30 Days #30 tab 01/13/22 Allergies Allergy/AdvReac Type Severity Reaction Status Date / Time cyclobenzaprine AdvReac AGITATION Verified 06/15/23 11:04 [From Flexeril] Review of Systems ROS Statement: Those systems with pertinent positive or pertinent negative responses have been documented in the HPI. ROS Other: All systems not noted in ROS Statement are negative. Constitutional: Denies: fever Eyes: Denies: eye pain ENT: Denies: ear pain Respiratory: Denies: cough Cardiovascular: Denies: chest pain Endocrine: Denies: fatigue Gastrointestinal: Reports: as per HPI, nausea, vomiting, diarrhea Genitourinary: Denies: dysuria Musculoskeletal: Denies: back pain Past Medical History Past Medical History: GERD/Reflux Additional Past Medical History / Comment(s): Diverticulitis, ileitis, gastritis, sinus problems at times. History of Any Multi-Drug Resistant Organisms: None Reported Past Surgical History: Appendectomy, Hernia Repair Additional Past Surgical History / Comment(s): L inguinal hernia repair, EGD. Past Anesthesia/Blood Transfusion Reactions: No Reported Reaction Past Psychological History: No Psychological Hx Reported Smoking Status: Former smoker Past Alcohol Use History: Abuse, Daily, Heavy Past Drug Use History: Opiates, Prescription Drug Abuse - Past Family History Mother Family Medical History: No Reported History Additional Family Medical History / Comment(s): Mother is healthy. Father History Unknown: Yes Family Medical History: No Reported History Additional Family Medical History / Comment(s): Pt states he does not speak to his father so father's medical hx is unknown. General Exam Limitations: no limitations General appearance: alert, in no apparent distress Head exam: Present: normocephalic Eye exam: Present: normal appearance ENT exam: Present: mucous membranes dry Neck exam: Present: normal inspection Respiratory exam: Present: normal lung sounds bilaterally Cardiovascular Exam: Present: normal rhythm, bradycardia, normal heart sounds GI/Abdominal exam: Present: soft, normal bowel sounds. Absent: distended, tenderness, guarding, rebound, rigid, pulsatile mass Extremities exam: Present: normal inspection Neurological exam: Present: alert Psychiatric exam: Present: normal affect, normal mood Skin exam: Present: normal color Course Vital Signs 06/15/23 06/15/23 06/15/23 10:54 12:30 13:21 Temperature 97.6 F 97.6 F 98.2 F Pulse Rate 45 L 42 L 56 L Respiratory 18 18 18 Rate Blood Pressure 164/104 164/94 168/104 O2 Sat by Pulse 99 98 100 Oximetry - Reevaluation(s) Reevaluation #1: 06/15/23 11:22 Critical care shows sinus bradycardia with a rate of 50. Patient placed on monitor secondary to bradycardia and to observe for dysrhythmia EKG Findings - EKG Results: EKG: interpreted by [facility] (Previous EKG reviewed dated 01/12/22), sinus rhythm, normal axis, normal QRS EKG shows: bradycardia Medical Decision Making - Medical Decision Making Was pt. sent in by a medical professional or institution (, PA, CRIMINAL JUSTICE LAWYER, urgent care, hospital, or long term...) When possible be specific @ -No Did you speak to anyone other than the patient for history (EMS, parent, family, police, friend...)? What history was obtained from this source @ -No Did you review nursing and triage notes (agree or disagree)? Why? @ -I reviewed and agree with nursing and triage notes Were old charts reviewed (outside hosp., previous admission, EMS record, old EKG, old radiological studies, urgent care reports/EKG's, long term records)? Report findings @ -Labs from previous visit reviewed Differential Diagnosis (chest pain, altered mental status, abdominal pain women, abdominal pain men, vaginal bleeding, weakness, fever, dyspnea, syncope, headache, dizziness, GI bleed, back pain, seizure, CVA, palpatations, mental health, musculoskeletal)? @ -Differential Abdominal Pain Men: Appendicitis, cholecystitis, diverticulosis, ischemic bowel, pancreatitis, hepatitis, UTI, gastroenteritis, AAA, incarcerated hernia, bowel obstruction, constipation, inflammatory bowel, hepatitis, peptic ulcer disease, splenic infarction, perforated viscus, testicular torsion, this is not meant to be an all-inclusive list EKG interpreted by me (3pts min.). @ -As above X-rays interpreted by me (1pt min.). @ -Abdominal x-ray shows unremarkable abdomen CT interpreted by me (1pt min.). @ -None done U/S interpreted by me (1pt. min.). @ -None done What testing was considered but not performed or refused? (CT, X-rays, U/S, labs)? Why? @ -None What meds were considered but not given or refused? Why? @ -None Did you discuss the management of the patient with other professionals (professionals i.e. , PA, CRIMINAL JUSTICE LAWYER, lab, RT, psych nurse, social services technician, insolvency consultant, teacher, food safety officer, upper caser)? Give summary @ -Case was discussed with Dr. Tomlinson who will keep patient fractured patient. No consults at this time. Was smoking cessation discussed for >3mins.? @ -No Was critical care preformed (if so, how long)? @ -No Were there social determinants of health that impacted care today? How? (Homelessness, low income, unemployed, alcoholism, drug addiction, transportation, low edu. Level, literacy, decrease access to med. care, senior living, rehab)? @ -No Was there de-escalation of care discussed even if they declined (Discuss DNR or withdrawal of care, Hospice)? DNR status @ -No What co-morbidities impacted this encounter? (DM, HTN, Smoking, COPD, CAD, Cancer, CVA, ARF, Chemo, Hep., AIDS, mental health diagnosis, sleep apnea, morbid obesity)? @ -None Was patient admitted / discharged? Hospital course, mention meds given and route, prescriptions, significant lab abnormalities, going to OR and other pertinent info. @ -Patient reevaluated and still having symptoms. Patient is updated on results. Patient will be held for fluids and symptomatic treatment. Heart monitor will be continued to monitor for bradycardia Undiagnosed new problem with uncertain prognosis? @ -No Drug Therapy requiring intensive monitoring for toxicity (Heparin, Nitro, Insulin, Cardizem)? @ -No Were any procedures done? @ -No Diagnosis/symptom? @ -Vomiting, bradycardia Acute, or Chronic, or Acute on Chronic? @ -Acute, acute Uncomplicated (without systemic symptoms) or Complicated (systemic symptoms)? @ -default Side effects of treatment? @ -No Exacerbation, Progression, or Severe Exacerbation? @ -No Poses a threat to life or bodily function? How? (Chest pain, [place], [place], pneumonia, PE, COPD, DKA, ARF, appy, cholecystitis, CVA, Diverticulitis, Homicidal, Suicidal, threat to staff... and all critical care pts) @ -No - Lab Data Result diagrams: 06/15/23 11:00 06/15/23 11:00 Lab Results 06/15/23 06/15/23 06/15/23 Range/Units 11:00 11:00 11:00 WBC 9.7 (3.8-10.6) k/uL RBC 4.36 (4.30-5.90) m/uL Hgb 14.8 (13.0-17.5) gm/dL Hct 44.5 (39.0-53.0) % MCV 102.1 H (80.0-100.0) fL MCH 33.9 (25.0-35.0) pg MCHC 33.2 (31.0-37.0) g/dL RDW 12.5 (11.5-15.5) % Plt Count 142 L (150-450) k/uL MPV 10.3 Neutrophils % 79 % Lymphocytes % 12 % Monocytes % 7 % Eosinophils % 1 % Basophils % 0 % Neutrophils # 7.7 (1.3-7.7) k/uL Lymphocytes # 1.2 (1.0-4.8) k/uL Monocytes # 0.6 (0-1.0) k/uL Eosinophils # 0.1 (0-0.7) k/uL Basophils # 0.0 (0-0.2) k/uL PT 11.7 (9.0-12.0) sec INR 1.1 (<1.2) APTT 22.4 (22.0-30.0) sec Sodium 138 (137-145) mmol/L Potassium 3.9 (3.5-5.1) mmol/L Chloride 110 H (98-107) mmol/L Carbon Dioxide 17 L (22-30) mmol/L Anion Gap 11 mmol/L BUN 18 (9-20) mg/dL Creatinine 0.94 (0.66-1.25) mg/dL Est GFR (CKD-EPI)AfAm >90 (>60 ml/min/1.73 sqM) Est GFR (CKD-EPI)NonAf >90 (>60 ml/min/1.73 sqM) Glucose 93 (74-99) mg/dL Calcium 9.3 (8.4-10.2) mg/dL Total Bilirubin 1.5 H (0.2-1.3) mg/dL AST 47 (17-59) U/L ALT 29 (4-49) U/L Alkaline Phosphatase 66 (38-126) U/L Troponin I (0.000-0.034) ng/mL Total Protein 7.4 (6.3-8.2) g/dL Albumin 4.2 (3.5-5.0) g/dL Amylase 41 (30-110) U/L Lipase 63 (23-300) U/L 06/15/23 Range/Units 11:00 WBC (3.8-10.6) k/uL RBC (4.30-5.90) m/uL Hgb (13.0-17.5) gm/dL Hct (39.0-53.0) % MCV (80.0-100.0) fL MCH (25.0-35.0) pg MCHC (31.0-37.0) g/dL RDW (11.5-15.5) % Plt Count (150-450) k/uL MPV Neutrophils % % Lymphocytes % % Monocytes % % Eosinophils % % Basophils % % Neutrophils # (1.3-7.7) k/uL Lymphocytes # (1.0-4.8) k/uL Monocytes # (0-1.0) k/uL Eosinophils # (0-0.7) k/uL Basophils # (0-0.2) k/uL PT (9.0-12.0) sec INR (<1.2) APTT (22.0-30.0) sec Sodium (137-145) mmol/L Potassium (3.5-5.1) mmol/L Chloride (98-107) mmol/L Carbon Dioxide (22-30) mmol/L Anion Gap mmol/L BUN (9-20) mg/dL Creatinine (0.66-1.25) mg/dL Est GFR (CKD-EPI)AfAm (>60 ml/min/1.73 sqM) Est GFR (CKD-EPI)NonAf (>60 ml/min/1.73 sqM) Glucose (74-99) mg/dL Calcium (8.4-10.2) mg/dL Total Bilirubin (0.2-1.3) mg/dL AST (17-59) U/L ALT (4-49) U/L Alkaline Phosphatase (38-126) U/L Troponin I <0.012 (0.000-0.034) ng/mL Total Protein (6.3-8.2) g/dL Albumin (3.5-5.0) g/dL Amylase (30-110) U/L Lipase (23-300) U/L Disposition Clinical Impression: Vomiting, Bradycardia Disposition: ADMITTED IP TO THIS HOSP Is patient prescribed a controlled substance at d/c from ED?: No Referrals: None,Stated [Primary Care Provider] - 1-2 days Time of Disposition: 13:55
--- NOTE | 2023-06-15 11:36 | XR ---
EXAMINATION TYPE: XR KUB DATE OF EXAM: 06/15/2023 COMPARISON: 07/13/2018 INDICATION: Abdominal pain and vomiting nausea TECHNIQUE: Single view abdomen upright view FINDINGS: There is a normal bowel gas pattern. No free air is evident. No mass effect is evident. Psoas margins are normal. No organomegaly is present. IMPRESSION: 1. Unremarkable Abdomen
[2023-06-15 11:44] LABS: Basophils % (A) 0 %; Eosinophils # (A) 0.1 k/uL (0-0.7); Eosinophils % (A) 1 %; HCT 44.5 % (39.0-53.0); HGB 14.8 gm/dL (13.0-17.5); Lymphocytes # (A) 1.2 k/uL (1.0-4.8); Lymphocytes % (A) 12 %; MCH 33.9 pg (25.0-35.0); MCHC 33.2 g/dL (31.0-37.0); MCV 102.1 fL (80.0-100.0); Mean Platelet Volume 10.3; Monocytes # (A) 0.6 k/uL (0-1.0); Monocytes % (A) 7 %; Neutrophils # (A) 7.7 k/uL (1.3-7.7); Neutrophils % (A) 79 %; Platelet Count 142 k/uL (150-450); RBC 4.36 m/uL (4.30-5.90); RDW 12.5 % (11.5-15.5); WBC 9.7 k/uL (3.8-10.6)
[2023-06-15 11:58] LABS: INR 1.1 (<1.2); Partial Thromboplastin Time 22.4 sec (22.0-30.0); Prothrombin Time 11.7 sec (9.0-12.0)
[2023-06-15 12:12] LABS: ALT 29 U/L (4-49); AST 47 U/L (17-59); African American GFR (CKD) >90 (>60 ml/min/1.73 sqM); Albumin 4.2 g/dL (3.5-5.0); Alkaline Phosphatase 66 U/L (38-126); Amylase 41 U/L (30-110); Anion Gap 11 mmol/L; Blood Urea Nitrogen 18 mg/dL (9-20); Calcium 9.3 mg/dL (8.4-10.2); Carbon Dioxide 17 mmol/L (22-30); Chloride 110 mmol/L (98-107); Glucose 93 mg/dL (74-99); Lipase 63 U/L (23-300); Non-African American GFR(CKD) >90 (>60 ml/min/1.73 sqM); Potassium 3.9 mmol/L (3.5-5.1); Sodium 138 mmol/L (137-145); Total Bilirubin 1.5 mg/dL (0.2-1.3); Total Protein 7.4 g/dL (6.3-8.2)
[2023-06-15] MEDS ORDERED: METOCLOPRAMIDE 5 MG/ML 2 ML VIAL IVP STA (13:03)
[2023-06-15] MEDS ORDERED: diphenhydrAMINE 50 MG/ML 1 ML VIAL IVP STA (13:03)
[2023-06-15] MEDS ORDERED: ACETAMINOPHEN TAB 325 MG TAB PO PRN (13:55)
[2023-06-15] MEDS ORDERED: NALOXONE 0.4 MG/ML 1 ML VIAL IV PRN (13:55)
[2023-06-15] MEDS ORDERED: ONDANSETRON 4 MG/2 ML VIAL IVP PRN (13:55)
[2023-06-15] MEDS: PANTOPRAZOLE 40 MG/10 ML VIAL IV SCH (14:14)
[2023-06-15] MEDS: SODIUM CHLORIDE 0.9% 1,000 ML IV SCH (14:15)
--- NOTE | 2023-06-15 15:36 | P.HPIM ---
History of Present Illness H&P Date: 06/15/23 Patient is a 52 male with history of alcohol dependence and alcohol dependence, gastritis presenting with nausea and vomiting, abdominal pain. He claims that he last drank alcohol and stay normally drinks 12 beers every day. He started developing abdominal pain 2 days ago associated with nausea, vomiting, and diarrhea. He presented to the ED 2 days ago however was not admitted at that time. His abdominal pain and nausea and vomiting continued, he then presented again today with similar complaints. Was also found to be bradycardic. Denies any significant chest pain, shortness of breath, palpitations, lightheadedness. He does not take any medications at home. He does not have a primary care doctor. He chews tobacco, denies any illicit drug use. In the ED, temperature was 97.6, pulse 45, respiratory rate 18, blood pressure 164/104, saturating well on room air. WBC was 7, platelet 142, hemoglobin 14.8, bicarb 17, creatinine 0.94, negative troponin. EKG shows sinus bradycardia. KUB shows unremarkable abdomen. Patient admitted for observation for bradycardia. Currently on telemetry. Further workup pending. Pertinent positives and negatives as discussed in HPI, a complete review of systems was performed and all other systems are negative. Patient seen and examined at bedside. Vital signs reviewed General: nontoxic, no distress, appears at stated age Derm: warm, dry Head: atraumatic, normocephalic, symmetric Eyes: EOMI, no lid lag, anicteric sclera, pupils equal round reactive to light ENT: Nose and ears atraumatic Neck: No thyromegaly, supple Mouth: no lip lesion, mucus membranes moist Cardiovascular: S1S2 reg, no murmur, no edema Lungs: clear to auscultation bilateral, no rhonchi, no rales, no wheeze, no accessory muscle use Abdominal: soft, nontender to palpation, no guarding, no appreciable organomegaly Ext: no gross muscle atrophy, muscle strength muscle strength 5 out of 5 in all 4 extremities, no contractures Neuro: CN II-XII grossly intact Psych: Alert, oriented, appropriate affect Assessment/Plan: Sinus bradycardia, asymptomatic Nausea vomiting Abdominal pain Alcohol dependence Gastritis -TSH pending -Continue telemetry -EKG shows sinus bradycardia -No concerns for acute abdomen -Continue IV Zofran, oral Tylenol, IV fluids -Continue IV pantoprazole The patient is admitted with an anticipated less than 2 midnight stay as observation status for evaluation of intractable N/V and bradycardia. Surrogate decision-maker: Mother CODE STATUS: Full code DVT prophylaxis: Lovenox Anticipated discharge date: Tomorrow Anticipated discharge place: Home A total of 55 minutes was spent on the care of this complex patient more than 50% of the time was spent in counseling and care coordination. Past Medical History Past Medical History: GERD/Reflux Additional Past Medical History / Comment(s): Diverticulitis, ileitis, gastritis, sinus problems at times. History of Any Multi-Drug Resistant Organisms: None Reported Past Surgical History: Appendectomy, Hernia Repair Additional Past Surgical History / Comment(s): L inguinal hernia repair, EGD. Past Anesthesia/Blood Transfusion Reactions: No Reported Reaction Past Psychological History: No Psychological Hx Reported Smoking Status: Former smoker Past Alcohol Use History: Abuse, Daily, Heavy Past Drug Use History: Opiates, Prescription Drug Abuse - Past Family History Mother Family Medical History: No Reported History Additional Family Medical History / Comment(s): Mother is healthy. Father History Unknown: Yes Family Medical History: No Reported History Additional Family Medical History / Comment(s): Pt states he does not speak to his father so father's medical hx is unknown. Medications and Allergies Home Medications Medication Instructions Recorded Confirmed Type Ondansetron [Zofran ODT] 4 mg PO Q8HR PRN #12 tab 01/13/22 Rx Pantoprazole [Protonix] 40 mg PO DAILY 30 Days #30 tab 01/13/22 Rx Allergies Allergy/AdvReac Type Severity Reaction Status Date / Time cyclobenzaprine AdvReac AGITATION Verified 06/15/23 11:04 [From Flexeril] Physical Exam Vitals: Vital Signs Temp Pulse Resp BP Pulse Ox 06/15/23 13:21 98.2 F 56 L 18 168/104 100 06/15/23 12:30 97.6 F 42 L 18 164/94 98 06/15/23 10:54 97.6 F 45 L 18 164/104 99 Intake and Output 06/15/23 06/15/23 06/15/23 06:59 14:59 22:59 Other: Weight 59.874 kg Results CBC & Chem 7: 06/15/23 11:00 06/15/23 11:00 Labs: Abnormal Lab Results - Last 24 Hours (Table) 06/15/23 06/15/23 Range/Units 11:00 11:00 MCV 102.1 H (80.0-100.0) fL Plt Count 142 L (150-450) k/uL Chloride 110 H (98-107) mmol/L Carbon Dioxide 17 L (22-30) mmol/L Total Bilirubin 1.5 H (0.2-1.3) mg/dL
[2023-06-15 18:53] VITALS: RESP 18
[2023-06-15] MEDS: MORPHINE SULFATE 4 MG/ML SYRINGE IVP PRN (21:05)
[2023-06-16] MEDS: MORPHINE SULFATE 4 MG/ML SYRINGE IVP PRN ×2 (00:57→04:47)
[2023-06-16] MEDS: SODIUM CHLORIDE 0.9% 1,000 ML IV SCH (04:47)
[2023-06-16 07:30] LABS: Basophils % (A) 0 %; Eosinophils # (A) 0.1 k/uL (0-0.7); Eosinophils % (A) 1 %; HCT 39.8 % (39.0-53.0); HGB 13.3 gm/dL (13.0-17.5); Lymphocytes # (A) 1.8 k/uL (1.0-4.8); Lymphocytes % (A) 28 %; MCH 34.3 pg (25.0-35.0); MCHC 33.4 g/dL (31.0-37.0); MCV 102.9 fL (80.0-100.0); Macrocytosis Slight; Monocytes # (A) 0.5 k/uL (0-1.0); Monocytes % (A) 8 %; Neutrophils # (A) 3.8 k/uL (1.3-7.7); Neutrophils % (A) 60 %; Platelet Count 112 k/uL (150-450); RBC 3.87 m/uL (4.30-5.90); RDW 12.3 % (11.5-15.5); WBC 6.4 k/uL (3.8-10.6)
[2023-06-16 07:54] LABS: ALT 25 U/L (4-49); AST 32 U/L (17-59); African American GFR (CKD) >90 (>60 ml/min/1.73 sqM); Albumin 3.5 g/dL (3.5-5.0); Alkaline Phosphatase 43 U/L (38-126); Anion Gap 7 mmol/L; Blood Urea Nitrogen 15 mg/dL (9-20); Calcium 8.7 mg/dL (8.4-10.2); Carbon Dioxide 18 mmol/L (22-30); Chloride 110 mmol/L (98-107); Glucose 88 mg/dL (74-99); Non-African American GFR(CKD) 90 (>60 ml/min/1.73 sqM); Potassium 3.9 mmol/L (3.5-5.1); Sodium 135 mmol/L (137-145); Total Bilirubin 1.5 mg/dL (0.2-1.3)
[2023-06-16 08:52] VITALS: TEMP 98.3
[2023-06-16] MEDS ORDERED: THIAMINE 100 MG TAB PO SCH (09:00)
[2023-06-16] MEDS ORDERED: ENOXAPARIN 40 MG/0.4 ML SYRINGE SQ SCH (09:00)
[2023-06-16] MEDS: PANTOPRAZOLE 40 MG/10 ML VIAL IV SCH (09:02)
[2023-06-16 10:55] VITALS: BMI 19.5
--- NOTE | 2023-06-16 11:35 | P.DS ---
Providers Date of admission: 06/15/23 13:55 Expected date of discharge: 06/16/23 Attending physician: Gee Cabrera MD Primary care physician: Stated None Hospital Course: Discharge Diagnosis: Sinus bradycardia, asymptomatic Nausea and vomiting Abdominal pain Alcohol dependence Gastritis Non-anion gap metabolic acidosis Hospital Course: 52 male with history of alcohol dependence, gastritis presenting with nausea and vomiting, abdominal pain. In the ED, temperature was 97.6, pulse 45, respiratory rate 18, blood pressure 164/104, saturating well on room air. WBC was 7, platelet 142, hemoglobin 14.8, bicarb 17, creatinine 0.94, negative troponin. EKG shows sinus bradycardia. KUB shows unremarkable abdomen. Patient admitted for observation for bradycardia. Patient continues to remain bradycardic, asymptomatic. TSH within normal limits. Abdominal pain improving, nausea improved. Patient to see PCP as well as cardiology outpatient. Patient seen and examined at bedside. Vital signs reviewed and stable. General: nontoxic, no distress, appears at stated age Derm: warm, dry Head: atraumatic, normocephalic, symmetric Eyes: EOMI, no lid lag, anicteric sclera Mouth: no lip lesion, mucus membranes moist Cardiovascular: S1S2 reg, no murmur Lungs: CTA bilateral, no rhonchi, no rales , no accessory muscle use Abdominal: soft, nontender to palpation, no guarding, no appreciable organomegaly Ext: no gross muscle atrophy, no edema, no contractures Neuro: CN II-XI grossly intact, no focal neuro deficits Psych: Alert, oriented, appropriate affect A total of 33 minutes of time were spent preparing this complex discharge summary. Patient was discharged on 06/16/23 at 11:25. Patient Condition at Discharge: Stable Plan - Discharge Summary Discharge Rx Participant: Yes New Discharge Prescriptions: New Pantoprazole [Protonix] 40 mg PO DAILY #60 tab Thiamine [Vitamin B-1] 100 mg PO DAILY #60 tab Discharge Medication List Pantoprazole [Protonix] 40 mg PO DAILY #60 tab 06/16/23 [Rx] Thiamine [Vitamin B-1] 100 mg PO DAILY #60 tab 06/16/23 [Rx] Follow up Appointment(s)/Referral(s): Anthony Tobar MD [STAFF PHYSICIAN] - 1 Week None,Stated [Primary Care Provider] - 1-2 days Patient Instructions/Handouts: Gastritis (DC), Bradycardia (DC) Activity/Diet/Wound Care/Special Instructions: Please see a PCP and also cardiology. Discharge Disposition: HOME SELF-CARE
[2023-06-16 12:15] VITALS: BP 115/78; PULSE 50
== END 2023-06-16 19:08 | disposition home or self-care (01) ==
LOC: EC 10:52 → 3SCARD 13:55
PROVIDERS: ADMIT Student in an Organized Health Care Education/Training Program; ATTEND Student in an Organized Health Care Education/Training Program
DX: K29.70 Gastritis, unspecified, without bleeding (principal); R00.1 Bradycardia, unspecified; E87.20 Acidosis, unspecified; F10.20 Alcohol dependence, uncomplicated; K21.9 Gastro-esophageal reflux disease without esophagitis; Z87.891 Personal history of nicotine dependence; Z79.899 Other long term (current) drug therapy
CPT/HCPCS: 99285; 36415; 93005; 80053 ×2; 84443; 82150; 83690; 83735; 84484; 85025 ×2; 85610; 85730; 74018; G0378 ×2; J2270 ×2; J1200; J0500; J2765; J2405; J1650; J3490; C9113 ×2

== ENCOUNTER 2024-02-05 09:02 | Emergency (ER) | payer OTHER ==
[2024-02-05 09:24] VITALS: TEMP 98.4
--- NOTE | 2024-02-05 09:24 | ED ---
General Adult HPI - General Chief complaint: Nausea/Vomiting/Diarrhea Stated complaint: Vomitting Time Seen by Provider: 02/05/24 09:10 Source: patient, RN notes reviewed, old records reviewed Mode of arrival: ambulatory Limitations: no limitations - History of Present Illness Initial comments: This is a 53-year-old male who presents to the emergency department stating that he had a couple beers and then had dinner on Friday night and after that he has been vomiting ever since. Patient states he had difficulty even tolerating water. Patient denies any abdominal pain. Patient denies chest pain difficulty breathing shortness of breath. Patient has any fever or chills. Patient denies any diarrhea. Patient denies a headache patient has numbness weakness. - Related Data Home Medications Medication Instructions Recorded Confirmed Multivitamins, Thera [Multivitamin 1 tab PO DAILY 02/05/24 02/05/24 (formulary)] Allergies Allergy/AdvReac Type Severity Reaction Status Date / Time cyclobenzaprine AdvReac AGITATION Verified 02/05/24 09:57 [From Flexeril] Review of Systems ROS Statement: Those systems with pertinent positive or pertinent negative responses have been documented in the HPI. ROS Other: All systems not noted in ROS Statement are negative. Past Medical History Past Medical History: GERD/Reflux Additional Past Medical History / Comment(s): Diverticulitis, ileitis, gastritis, sinus problems at times. History of Any Multi-Drug Resistant Organisms: None Reported Past Surgical History: Appendectomy, Hernia Repair Additional Past Surgical History / Comment(s): L inguinal hernia repair, EGD. Past Anesthesia/Blood Transfusion Reactions: No Reported Reaction Past Psychological History: No Psychological Hx Reported Smoking Status: Former smoker Past Alcohol Use History: Abuse, Daily, Heavy Past Drug Use History: Opiates, Prescription Drug Abuse - Past Family History Mother Family Medical History: No Reported History Additional Family Medical History / Comment(s): Mother is healthy. Father History Unknown: Yes Family Medical History: No Reported History Additional Family Medical History / Comment(s): Pt states he does not speak to his father so father's medical hx is unknown. General Exam - General Exam Comments Initial Comments: GENERAL: Patient is well-developed and well-nourished. Patient is nontoxic and well- hydrated and is in mild distress. ENT: Neck is soft and supple. No significant lymphadenopathy is noted. Oropharynx is clear. Moist mucous membranes. Neck has full range of motion without eliciting any pain. EYES: The sclera were anicteric and conjunctiva were pink and moist. Extraocular movements were intact and pupils were equal round and reactive to light. Eyelids were unremarkable. PULMONARY: Unlabored respirations. Good breath sounds bilaterally. No audible rales rhonchi or wheezing was noted. CARDIOVASCULAR: There is a regular rate and rhythm without any murmurs gallops or rubs. ABDOMEN: Soft and nontender with normal bowel sounds. SKIN: Skin is clear with no lesions or rashes and otherwise unremarkable. NEUROLOGIC: Patient is alert and oriented x3. Cranial nerves II through XII are grossly intact. Motor and sensory are also intact. Normal speech, volume and content. Symmetrical smile. MUSCULOSKELETAL: Normal extremities with adequate strength and full range of motion. LYMPHATICS: No significant lymphadenopathy is noted PSYCHIATRIC: Normal psychiatric evaluation. Limitations: no limitations Course Vital Signs 02/05/24 09:10 Temperature 98.4 F Pulse Rate 65 Respiratory 16 Rate Blood Pressure 104/78 O2 Sat by Pulse 98 Oximetry Medical Decision Making - Medical Decision Making EKG is interpreted by myself. EKG shows a sinus bradycardia at 53 bpm parables 133 QRS is 87 QT interval 431 QTc is 414. Patient's EKG shows no ST segment ovation or depression. Patient has T wave inversions in leads V4, V5 and V6. Was pt. sent in by a medical professional or institution ([facility], [employer], urgent care, hospital, or group home...) When possible be specific @ -No Did you speak to anyone other than the patient for history (EMS, parent, family, police, friend...)? What history was obtained from this source @ -No Did you review nursing and triage notes (agree or disagree)? Why? @ -I reviewed and agree with nursing and triage notes Were old charts reviewed (outside hosp., previous admission, EMS record, old EKG, old radiological studies, urgent care reports/EKG's, group home records)? Report findings @ -No old charts were reviewed Differential Diagnosis (chest pain, altered mental status, abdominal pain women, abdominal pain men, vaginal bleeding, weakness, fever, dyspnea, syncope, headache, dizziness, GI bleed, back pain, seizure, CVA, palpatations, mental health, musculoskeletal)? @ -Differential abdominal cramping men: Appendicitis, cholecystitis, diverticulosis, ischemic bowel, pancreatitis, hepatitis, UTI, gastroenteritis, AAA, incarcerated hernia, bowel obstruction, constipation, inflammatory bowel, hepatitis, peptic ulcer disease, splenic infarction, perforated viscus, testicular torsion, this is not meant to be an all-inclusive list EKG interpreted by me (3pts min.). @ -As above X-rays interpreted by me (1pt min.). @ -None done CT interpreted by me (1pt min.). @ -None done U/S interpreted by me (1pt. min.). @ -None done What testing was considered but not performed or refused? (CT, X-rays, U/S, labs)? Why? @ -None What meds were considered but not given or refused? Why? @ -None Did you discuss the management of the patient with other professionals (professionals i.e. , PA, GREETING CARD WRITER, lab, RT, psych nurse, social work administrator, supervisor color paste mixing, teacher, surface to air weapons officer, hospice case manager)? Give summary @ -No Was smoking cessation discussed for >3mins.? @ -No Was critical care preformed (if so, how long)? @ -No Were there social determinants of health that impacted care today? How? (Homelessness, low income, unemployed, alcoholism, drug addiction, transportation, low edu. Level, literacy, decrease access to med. care, long-term, rehab)? @ -No Was there de-escalation of care discussed even if they declined (Discuss DNR or withdrawal of care, Hospice)? DNR status @ -No What co-morbidities impacted this encounter? (DM, HTN, Smoking, COPD, CAD, Cancer, CVA, ARF, Chemo, Hep., AIDS, mental health diagnosis, sleep apnea, morbid obesity)? @ -None Was patient admitted / discharged? Hospital course, mention meds given and route, prescriptions, significant lab abnormalities, going to OR and other pertinent info. @ -Patient received a liter and half of fluid and Zofran. I went back and reevaluated the patient he was feeling considerably better. Patient will be sent home with some Zofran. Undiagnosed new problem with uncertain prognosis? @ -No Drug Therapy requiring intensive monitoring for toxicity (Heparin, Nitro, Insulin, Cardizem)? @ -No Were any procedures done? @ -No Diagnosis/symptom? @ -Acute vomiting Acute, or Chronic, or Acute on Chronic? @ -Acute Uncomplicated (without systemic symptoms) or Complicated (systemic symptoms)? @ -Complicated Side effects of treatment? @ -No Exacerbation, Progression, or Severe Exacerbation? @ -No Poses a threat to life or bodily function? How? (Chest pain, [place], [place], pneumonia, PE, COPD, DKA, ARF, appy, cholecystitis, CVA, Diverticulitis, Homicidal, Suicidal, threat to staff... and all critical care pts) @ -No - Lab Data Result diagrams: 02/05/24 09:35 02/05/24 09:35 Lab Results 02/05/24 02/05/24 02/05/24 Range/Units 09:35 09:35 09:35 WBC 14.6 H (3.8-10.6) k/uL RBC 4.97 (4.30-5.90) m/uL Hgb 16.5 (13.0-17.5) gm/dL Hct 50.3 (39.0-53.0) % MCV 101.2 H (80.0-100.0) fL MCH 33.2 (25.0-35.0) pg MCHC 32.8 (31.0-37.0) g/dL RDW 13.0 (11.5-15.5) % Plt Count 186 (150-450) k/uL MPV 9.9 Neutrophils % 84 % Lymphocytes % 8 % Monocytes % 6 % Eosinophils % 1 % Basophils % 0 % Neutrophils # 12.2 H (1.3-7.7) k/uL Lymphocytes # 1.2 (1.0-4.8) k/uL Monocytes # 0.9 (0-1.0) k/uL Eosinophils # 0.1 (0-0.7) k/uL Basophils # 0.0 (0-0.2) k/uL Sodium 142 (137-145) mmol/L Potassium 3.4 L (3.5-5.1) mmol/L Chloride 103 (98-107) mmol/L Carbon Dioxide 27 (22-30) mmol/L Anion Gap 12 mmol/L BUN 21 H (9-20) mg/dL Creatinine 0.96 (0.66-1.25) mg/dL Est GFR (CKD-EPI)AfAm >90 (>60 ml/min/1.73 sqM) Est GFR (CKD-EPI)NonAf >90 (>60 ml/min/1.73 sqM) Glucose 114 H (74-99) mg/dL Plasma Lactic Acid Gordon 1.3 (0.7-2.0) mmol/L Calcium 9.9 (8.4-10.2) mg/dL Magnesium 2.3 (1.6-2.3) mg/dL Total Bilirubin 1.2 (0.2-1.3) mg/dL AST 27 (17-59) U/L ALT 25 (4-49) U/L Alkaline Phosphatase 67 (38-126) U/L Total Protein 8.0 (6.3-8.2) g/dL Albumin 5.0 (3.5-5.0) g/dL Disposition Clinical Impression: Acute vomiting, Abdominal cramping Disposition: HOME SELF-CARE Instructions (If sedation given, give patient instructions): Acute Nausea and Vomiting (ED) Is patient prescribed a controlled substance at d/c from ED?: No Referrals: None,Stated [Primary Care Provider] - 1-2 days Time of Disposition: 10:48
[2024-02-05] MEDS: SODIUM CHLORIDE 0.9% 1,000 ML IV ONE (09:39)
[2024-02-05] MEDS: ONDANSETRON 4 MG/2 ML VIAL IVP STA (09:39)
[2024-02-05] MEDS: SODIUM CHLORIDE 0.9% 500 ML 500 ML IV ONE (09:47)
[2024-02-05 09:51] LABS: Basophils % (A) 0 %; Eosinophils # (A) 0.1 k/uL (0-0.7); Eosinophils % (A) 1 %; HCT 50.3 % (39.0-53.0); HGB 16.5 gm/dL (13.0-17.5); Lymphocytes # (A) 1.2 k/uL (1.0-4.8); Lymphocytes % (A) 8 %; MCH 33.2 pg (25.0-35.0); MCHC 32.8 g/dL (31.0-37.0); MCV 101.2 fL (80.0-100.0); Mean Platelet Volume 9.9; Monocytes # (A) 0.9 k/uL (0-1.0); Monocytes % (A) 6 %; Neutrophils # (A) 12.2 k/uL (1.3-7.7); Neutrophils % (A) 84 %; Platelet Count 186 k/uL (150-450); RBC 4.97 m/uL (4.30-5.90); WBC 14.6 k/uL (3.8-10.6)
[2024-02-05 10:24] LABS: ALT 25 U/L (4-49); AST 27 U/L (17-59); African American GFR (CKD) >90 (>60 ml/min/1.73 sqM); Alkaline Phosphatase 67 U/L (38-126); Anion Gap 12 mmol/L; Blood Urea Nitrogen 21 mg/dL (9-20); Calcium 9.9 mg/dL (8.4-10.2); Carbon Dioxide 27 mmol/L (22-30); Chloride 103 mmol/L (98-107); Glucose 114 mg/dL (74-99); Magnesium 2.3 mg/dL (1.6-2.3); Non-African American GFR(CKD) >90 (>60 ml/min/1.73 sqM); Potassium 3.4 mmol/L (3.5-5.1); Sodium 142 mmol/L (137-145); Total Bilirubin 1.2 mg/dL (0.2-1.3)
[2024-02-05] MEDS: ONDANSETRON 4 MG ODT STARTER PACK 2 TAB BTL PO STA (10:54)
[2024-02-05 11:37] VITALS: BP 167/85; PULSE 55; RESP 20
== END 2024-02-05 11:05 | disposition home or self-care (01) ==
LOC: EC 09:02
DX: R11.2 Nausea with vomiting, unspecified (principal); R10.9 Unspecified abdominal pain; F11.90 Opioid use, unspecified, uncomplicated; Z88.8 Allergy status to other drugs, medicaments and biological substances; Z87.891 Personal history of nicotine dependence
CPT/HCPCS: 36415; 93005; 80053; 83605; 83735; 85025; 99284; 96374; 96361; J2405; S0119

== ENCOUNTER 2025-03-23 10:11 | Emergency (ER) | payer OTHER ==
[2025-03-23 10:17] VITALS: TEMP 99
--- NOTE | 2025-03-23 10:41 | ED ---
General Adult HPI - General Chief complaint: Abdominal Pain Stated complaint: N/V/D Time Seen by Provider: 03/23/25 10:20 Source: patient, RN notes reviewed Mode of arrival: ambulatory Limitations: no limitations - History of Present Illness Initial comments: 54-year-old male presenting to the emergency department with complaints of nausea, vomiting, epigastric abdominal pain for the past 24 hours. He states that he has been having difficult time keeping up with liquids over this time. He denies hematemesis, coffee-ground emesis, chest pain or difficulty breathing. Endorses associated loose stools that are nonbloody. He is attempted to take sublingual Zofran at home with minimal relief in symptoms. Patient admits to daily alcohol use drinking a few beers per day however denies history of alcohol withdrawal. - Related Data Home Medications Medication Instructions Recorded Confirmed Multivitamins, Thera [Multivitamin 1 tab PO DAILY 02/05/24 02/05/24 (formulary)] Allergies Allergy/AdvReac Type Severity Reaction Status Date / Time cyclobenzaprine AdvReac AGITATION Verified 03/23/25 10:17 [From Flexeril] Review of Systems ROS Statement: Those systems with pertinent positive or pertinent negative responses have been documented in the HPI. ROS Other: All systems not noted in ROS Statement are negative. Past Medical History Past Medical History: GERD/Reflux Additional Past Medical History / Comment(s): Diverticulitis, ileitis, gastritis, sinus problems at times. History of Any Multi-Drug Resistant Organisms: None Reported Past Surgical History: Appendectomy, Hernia Repair Additional Past Surgical History / Comment(s): L inguinal hernia repair, EGD. Past Anesthesia/Blood Transfusion Reactions: No Reported Reaction Past Psychological History: No Psychological Hx Reported Smoking Status: Former smoker Past Alcohol Use History: Abuse, Daily, Heavy Past Drug Use History: Opiates, Prescription Drug Abuse - Past Family History Mother Family Medical History: No Reported History Additional Family Medical History / Comment(s): Mother is healthy. Father History Unknown: Yes Family Medical History: No Reported History Additional Family Medical History / Comment(s): Pt states he does not speak to his father so father's medical hx is unknown. General Exam Limitations: no limitations General appearance: alert, in no apparent distress ENT exam: Present: normal exam, mucous membranes moist Neck exam: Present: normal inspection. Absent: tenderness, meningismus, lymphadenopathy Respiratory exam: Present: normal lung sounds bilaterally. Absent: respiratory distress, wheezes, rales, rhonchi, stridor Cardiovascular Exam: Present: regular rate, normal rhythm, normal heart sounds. Absent: systolic murmur, diastolic murmur, rubs, gallop, clicks GI/Abdominal exam: Present: soft, normal bowel sounds. Absent: distended, tenderness, guarding, rebound, rigid Extremities exam: Present: normal inspection, full ROM, normal capillary refill. Absent: tenderness, pedal edema, joint swelling, calf tenderness Back exam: Present: tenderness. Absent: CVA tenderness (R), CVA tenderness (L) Course Vital Signs 03/23/25 03/23/25 03/23/25 10:15 10:22 11:40 Temperature 99.0 F Pulse Rate 109 H 72 76 Respiratory 17 16 20 Rate Blood Pressure 112/75 151/101 O2 Sat by Pulse 98 99 100 Oximetry Medical Decision Making - Medical Decision Making Was pt. sent in by a medical professional or institution (, PA, TECHNICAL INFORMATION SPECIALIST, urgent care, hospital, or senior care...) When possible be specific @ -No Did you speak to anyone other than the patient for history (EMS, parent, family, police, friend...)? What history was obtained from this source @ -No Did you review nursing and triage notes (agree or disagree)? Why? @ -I reviewed and agree with nursing and triage notes Were old charts reviewed (outside hosp., previous admission, EMS record, old EKG, old radiological studies, urgent care reports/EKG's, senior care records)? Report findings @ -No old charts were reviewed Differential Diagnosis (chest pain, altered mental status, abdominal pain women, abdominal pain men, vaginal bleeding, weakness, fever, dyspnea, syncope, headache, dizziness, GI bleed, back pain, seizure, CVA, palpatations, mental health, musculoskeletal)? @ -Differential Abdominal Pain Men: Appendicitis, cholecystitis, diverticulosis, ischemic bowel, pancreatitis, hepatitis, UTI, gastroenteritis, AAA, incarcerated hernia, bowel obstruction, constipation, inflammatory bowel, hepatitis, peptic ulcer disease, splenic infarction, perforated viscus, testicular torsion, this is not meant to be an all-inclusive list EKG interpreted by me (3pts min.). @ -Completed 1058 sinus rhythm with a ventricular rate of 63, DC interval 112, QRS 90, QT 404, QTc 412. X-rays interpreted by me (1pt min.). @ -None done CT interpreted by me (1pt min.). @ -None done U/S interpreted by me (1pt. min.). @ -None done What testing was considered but not performed or refused? (CT, X-rays, U/S, labs)? Why? @ -None What meds were considered but not given or refused? Why? @ -None Did you discuss the management of the patient with other professionals (professionals i.e. , PA, TECHNICAL INFORMATION SPECIALIST, lab, RT, psych nurse, licensed social worker, taker away, teacher, property officer, rifle case repairer)? Give summary @ -No Was smoking cessation discussed for >3mins.? @ -No Was critical care preformed (if so, how long)? @ -No Were there social determinants of health that impacted care today? How? (Homelessness, low income, unemployed, alcoholism, drug addiction, ardon sportation, low edu. Level, literacy, decrease access to med. care, halfway, rehab)? @ -No Was there de-escalation of care discussed even if they declined (Discuss DNR or withdrawal of care, Hospice)? DNR status @ -No What co-morbidities impacted this encounter? (DM, HTN, Smoking, COPD, CAD, Cancer, CVA, ARF, Chemo, Hep., AIDS, mental health diagnosis, sleep apnea, morbid obesity)? @ -None Was patient admitted / discharged? Hospital course, mention meds given and route, prescriptions, significant lab abnormalities, going to OR and other pertinent info. @ -Discharge. 54-year-old male presents emergency room with complaints of acute nausea vomiting and diarrhea. Patient is noted to be clinically dehydrated on examination. Abdominal examination is unremarkable. EKG is in sinus rhythm. Patient is provided with IV fluids, Protonix and Zofran for pain relief. Labs reveal a reactive leukocytosis of 16.4 likely secondary to emesis. CMP is unremarkable, troponin is nonelevated. Reevaluation after medications patient states that is feeling well however his chronic back pain has been exacerbated since he has been getting sick. Patient arrived with Toradol and lidocaine patch for relief. Patient stable for discharge. Return parameters have discussed. Case discussed with attending Dr. Shaw Undiagnosed new problem with uncertain prognosis? @ -No Drug Therapy requiring intensive monitoring for toxicity (Heparin, Nitro, Insulin, Cardizem)? @ -No Were any procedures done? @ -No Diagnosis/symptom? @ -Nausea and vomiting Acute, or Chronic, or Acute on Chronic? @ -Acute Uncomplicated (without systemic symptoms) or Complicated (systemic symptoms)? @ -Uncomplicated Side effects of treatment? @ -No Exacerbation, Progression, or Severe Exacerbation? @ -No Poses a threat to life or bodily function? How? (Chest pain, [place], [place], pneumonia, PE, COPD, DKA, ARF, appy, cholecystitis, CVA, Diverticulitis, Homicidal, Suicidal, threat to staff... and all critical care pts) @ -No - Lab Data Result diagrams: 03/23/25 10:30 03/23/25 10:30 Lab Results 03/23/25 03/23/25 03/23/25 Range/Units 10:30 10:30 10:30 WBC 16.40 H (4.50-10.00) 10*3/uL RBC 5.04 (4.40-5.60) 10*6/uL Hgb 17.7 H (13.0-17.0) g/dL Hct 49.0 (39.6-50.0) % MCV 97.2 H (80.0-97.0) fL MCH 35.1 H (27.0-32.0) pg MCHC 36.1 (32.0-37.0) g/dL Plt Count 183 (140-440) 10*3/uL MPV 11.6 (9.5-12.2) fL Immature Gran % (Auto) 0.4 % Neutrophils % 84.6 % Lymphocytes % 6.6 % Monocytes % 8.2 % Eosinophils % 0.0 % Basophils % 0.2 % Immature Gran # 0.06 H (0.00-0.04) 10*3/uL Neutrophils # 13.88 H (1.80-7.70) 10*3/uL Lymphocytes # 1.08 (0.90-5.00) 10*3/uL Monocytes # 1.35 H (0.20-1.00) 10*3/uL Eosinophils # 0.00 L (0.04-0.35) 10*3/uL Basophils # 0.03 (0.00-0.10) 10*3/uL Sodium 138 (137-145) mmol/L Potassium 4.2 (3.5-5.1) mmol/L Chloride 101 (98-107) mmol/L Carbon Dioxide 22 (22-30) mmol/L Anion Gap 15 mmol/L BUN 22 H (9-20) mg/dL Creatinine 1.23 (0.66-1.25) mg/dL Est GFR (CKD-EPI)AfAm 77 (>60 ml/min/1.73 sqM) Est GFR (CKD-EPI)NonAf 67 (>60 ml/min/1.73 sqM) Glucose 125 H (74-99) mg/dL Calcium 10.8 H (8.4-10.2) mg/dL Magnesium 2.3 (1.6-2.3) mg/dL Total Bilirubin 1.2 (0.2-1.3) mg/dL AST 25 (17-59) U/L ALT 19 (4-49) U/L Alkaline Phosphatase 75 (38-126) U/L Troponin I <0.012 (0.000-0.034) ng/mL Total Protein 8.8 H (6.3-8.2) g/dL Albumin 5.6 H (3.5-5.0) g/dL Lipase 57 (23-300) U/L Disposition Clinical Impression: Acute nausea with nonbilious vomiting Disposition: HOME SELF-CARE Condition: Good Instructions (If sedation given, give patient instructions): Acute Nausea and Vomiting (ED) Additional Instructions: Please return to the emergency room for any new or worsening symptoms. Is patient prescribed a controlled substance at d/c from ED?: No Referrals: None,Stated [Primary Care Provider] - 1-2 days Time of Disposition: 11:57
[2025-03-23 10:52] LABS: Basophils # (A) 0.03 10*3/uL (0.00-0.10); Basophils % (A) 0.2 %; HGB 17.7 g/dL (13.0-17.0); Lymphocytes # (A) 1.08 10*3/uL (0.90-5.00); Lymphocytes % (A) 6.6 %; MCH 35.1 pg (27.0-32.0); MCHC 36.1 g/dL (32.0-37.0); MCV 97.2 fL (80.0-97.0); Mean Platelet Volume 11.6 fL (9.5-12.2); Monocytes # (A) 1.35 10*3/uL (0.20-1.00); Monocytes % (A) 8.2 %; Neutrophils # (A) 13.88 10*3/uL (1.80-7.70); Neutrophils % (A) 84.6 %; Platelet Count 183 10*3/uL (140-440); RBC 5.04 10*6/uL (4.40-5.60); RDW 13.1 % (11.5-14.5)
[2025-03-23] MEDS: SODIUM CHLORIDE 0.9% 1,000 ML IV ONE (11:00)
[2025-03-23 11:01] LABS: ALT 19 U/L (4-49); AST 25 U/L (17-59); African American GFR (CKD) 77 (>60 ml/min/1.73 sqM); Albumin 5.6 g/dL (3.5-5.0); Alkaline Phosphatase 75 U/L (38-126); Anion Gap 15 mmol/L; Blood Urea Nitrogen 22 mg/dL (9-20); Calcium 10.8 mg/dL (8.4-10.2); Carbon Dioxide 22 mmol/L (22-30); Chloride 101 mmol/L (98-107); Glucose 125 mg/dL (74-99); Lipase 57 U/L (23-300); Magnesium 2.3 mg/dL (1.6-2.3); Non-African American GFR(CKD) 67 (>60 ml/min/1.73 sqM); Potassium 4.2 mmol/L (3.5-5.1); Sodium 138 mmol/L (137-145); Total Bilirubin 1.2 mg/dL (0.2-1.3); Total Protein 8.8 g/dL (6.3-8.2)
[2025-03-23] MEDS: ONDANSETRON 4 MG/2 ML VIAL IVP STA (11:01)
[2025-03-23] MEDS: PANTOPRAZOLE 40 MG/10 ML VIAL IVP STA (11:01)
[2025-03-23 11:44] VITALS: BP 151/101; PULSE 76; RESP 20
[2025-03-23] MEDS: KETOROLAC 15 MG/ML 1 ML VIAL IVP STA (11:58)
[2025-03-23] MEDS: LIDOCAINE 4% PATCH TOPICAL ONE (12:09)
== END 2025-03-23 12:12 | disposition home or self-care (01) ==
LOC: EC 10:11
DX: R11.2 Nausea with vomiting, unspecified (principal); Z88.8 Allergy status to other drugs, medicaments and biological substances; Z87.891 Personal history of nicotine dependence
CPT/HCPCS: 36415; 93005; 80053; 83690; 83735; 84484; 85025; 99284; 96374; 96375 ×2; 96361; J2405; J1885; J2470; 99285